=== PATIENT | male | born 1960 | race Caucasian/White ===

== ENCOUNTER 2020-03-14 20:04 | Outpatient (REF) | payer MEDICARE, SELFPAY ==
--- NOTE | 2020-03-14 | MR_ITS ---
EXAMINATION: MR CERVICAL SPINE WITHOUT CONTRAST CLINICAL INFORMATION: Worsening neck pain. Left-sided hyperreflexia. Nerve impingement. COMPARISON: Cervical spine MRI from 01/27/2019. TECHNIQUE: MRI of the cervical spine was obtained using routine sequences without contrast. FINDINGS: Mild degenerative stepwise retrolistheses from C2-C4 and from C5-C7. Degenerative anterolisthesis of C4 on C5. Advanced degenerative disc disease at C5-C6 and C6-C7. Moderate degenerative disc disease at all additional cervical levels. Associated mixed Modic type discogenic endplate changes including mild Modic type I discogenic edema from C4-C7. Mild edema within the left-sided C4-C6 facets suggestive of degenerative stress reaction. No additional suspicious marrow edema. Mild degenerative loss of C5 and C6 vertebral body height. Otherwise, the vertebral body heights are largely maintained. No spinal cord signal abnormalities demonstrated in 2 planes. Limited evaluation of the soft tissues of the neck without demonstrated abnormalities. The flow voids of the major cervical vessels are maintained. Normal appearance of the cervicomedullary junction and visualized posterior fossa. SPINAL LEVELS: C2-C3: Mild disc-osteophyte complex. There is no uncovertebral joint arthropathy. There is mild bilateral facet joint arthropathy. There is no neural foraminal stenosis. There is no spinal canal stenosis. C3-C4: Moderate disc-osteophyte complex. There is mild bilateral uncovertebral joint arthropathy. There is moderate bilateral facet joint arthropathy. There is moderate right and mild left neural foraminal stenosis. There is no spinal canal stenosis. C4-C5: Moderate disc-osteophyte complex. There is moderate left and mild right uncovertebral joint arthropathy. There is severe left and mild right facet joint arthropathy. There is severe left and no right neural foraminal stenosis. There is mild spinal canal stenosis. C5-C6: Moderate disc-osteophyte complex. There is moderate to severe bilateral uncovertebral joint arthropathy. There is moderate bilateral facet joint arthropathy. There is severe right worse than left neural foraminal stenosis. There is mild spinal canal stenosis. C6-C7: Moderate disc-osteophyte complex. There is moderate bihilar uncovertebral joint arthropathy. There is moderate bilateral facet joint arthropathy. There is severe right worse than left neural foraminal stenosis. There is no spinal canal stenosis. C7-T1: Mild disc-osteophyte complex. There is no uncovertebral joint arthropathy. There is mild bilateral facet joint arthropathy. There is no neural foraminal stenosis. There is no spinal canal stenosis. MR/MR cervical spine wo con IMPRESSION: Moderate to advanced multilevel degenerative spinal arthropathy of the cervical spine as described in detail above. Most notably, there are mild spinal canal stenosis at C4-C5 and C5-C6. Moderate to severe neural foraminal stenoses from C3-C7. Overall, findings are similar to exam from 2019.
== END 2020-03-14 20:05 | disposition home or self-care (01) ==
LOC: HO.MRI 20:04
PROVIDERS: Visit Provider Internal Medicine Medical Oncology
DX: M54.12 Radiculopathy, cervical region (principal); R29.898 Other symptoms and signs involving the musculoskeletal system
CPT/HCPCS: 72141

== ENCOUNTER 2020-04-10 08:32 | Outpatient (REF) | payer MEDICARE, SELFPAY ==
[2020-04-10 13:58] LABS: MANUAL DIFF FLAG NO
[2020-04-10 14:02] LABS: Basophils Percent Auto 0.1 % (0-2); Hematocrit 36.5 % (42-52); Imm Gran Abs Auto 0.11 X10*3/uL (0.00-0.03); Imm Gran Pct Auto 0.8 % (0.0-0.4); Lymphocytes Percent Auto 7.3 % (20-40); Mean Corpuscular HGB Conc 32.9 g/dl (31.0-36.0); Mean Corpuscular Hemoglobin 30.2 pg (27.0-33.0); Mean Corpuscular Volume 91.7 fL (80-98); Mean Platelet Volume 9.2 fL (9.4-12.4); Monocytes Absolute Auto 0.4 X10*3/uL (0.1-1.2); Neutrophils Absolute Auto 12.6 X10*3/uL (2.0-8.3); Neutrophils Percent Auto 88.8 % (45-73); Platelet Count 318 X10*3/uL (160-400); Red Blood Count 3.98 X10*6/uL (4.60-5.80); Red Cell Distribution Width 14.8 % (11.0-16.0); White Blood Count 14.2 X10*3/uL (4.8-10.8)
[2020-04-10 14:18] LABS: Alanine Aminotransferase 13 U/L (0-40); Albumin Level 4.5 g/dL (3.5-5.0); Alkaline Phosphatase 58 U/L (39-117); Anion Gap 16 (12-20); Aspartate Amino Transferase 19 U/L (5-37); Bilirubin Total 0.2 mg/dL (0.0-1.0); Blood Urea Nitrogen 21 mg/dL (9-16); Calcium 9.3 mg/dL (8.4-10.2); Carbon Dioxide 25 mmol/L (22-29); Chloride 100 mmol/L (96-108); Cholesterol 248 mg/dL; Estimated Glomerular Filt Rate > 60; Glucose Fasting 106 mg/dL (60-99); HDL Cholesterol 91 mg/dL; LDL Cholesterol Calculated 148 mg/dl; Potassium 5.3 mmol/l (3.3-5.1); Sodium 136 mmol/L (135-145); Total Protein 7.1 g/dL (6.5-8.0); Triglycerides 48 mg/dL
== END 2020-04-10 08:33 | disposition home or self-care (01) ==
LOC: HO.LAB 08:32
PROVIDERS: PCP Internal Medicine Medical Oncology; Visit Provider Internal Medicine Medical Oncology
DX: E78.2 Mixed hyperlipidemia (principal); J44.9 Chronic obstructive pulmonary disease, unspecified
CPT/HCPCS: 36415; 80053; 80061; 85025

== ENCOUNTER 2020-04-23 12:39 | Outpatient (RCR) | payer MEDICARE, MEDICAID, SELFPAY ==
--- NOTE | ~2020-04-23 | XR_ITS ---
EXAMINATION: XR CHEST CLINICAL INFORMATION: Nonhealing wound, image healed approval COMPARISON: None TECHNIQUE: 2 views of the chest were obtained. FINDINGS: Both lungs are hyperinflated but clear of acute process. Heart size and pulmonary vascularity is normal. There are old healed right posterior fourth, fifth and sixth rib fractures. No additional bony abnormality seen. XR/XR chest 2V IMPRESSION: Hyperinflated lungs likely emphysema. No acute cardiopulmonary process. Old right posterior healed fourth, fifth and sixth rib fractures.
--- NOTE | ~2020-04-23 | XR_ITS ---
EXAMINATION: XR CHEST CLINICAL INFORMATION: Shortness of breath COMPARISON: Previous chest x-rays most recent October 2020 TECHNIQUE: 2 views of the chest were obtained. FINDINGS: The cardiac and mediastinal contours are normal. The lungs are clear. There is no pleural effusion or pneumothorax. There are old right rib fractures. Bony structures are otherwise unremarkable. XR/XR chest 2V IMPRESSION: No evidence for acute disease in the chest.
[2020-11-11 13:58] LABS: MANUAL DIFF FLAG NO
[2020-11-11 14:07] LABS: Basophils Percent Auto 0.4 % (0-2); Eosinophils Absolute Auto 0.2 X10*3/uL (0.0-0.4); Eosinophils Percent Auto 1.6 % (0-4); Hematocrit 33.2 % (42-52); Hemoglobin 10.7 g/dl (14.0-18.0); Imm Gran Abs Auto 0.04 X10*3/uL (0.00-0.03); Imm Gran Pct Auto 0.4 % (0.0-0.4); Lymphocytes Absolute Auto 3.3 X10*3/uL (1.2-4.9); Lymphocytes Percent Auto 33.1 % (20-40); Mean Corpuscular HGB Conc 32.2 g/dl (31.0-36.0); Mean Corpuscular Hemoglobin 28.5 pg (27.0-33.0); Mean Corpuscular Volume 88.3 fL (80-98); Mean Platelet Volume 8.9 fL (9.4-12.4); Monocytes Absolute Auto 0.6 X10*3/uL (0.1-1.2); Monocytes Percent Auto 5.7 % (2-11); Neutrophils Absolute Auto 5.8 X10*3/uL (2.0-8.3); Neutrophils Percent Auto 58.8 % (45-73); Platelet Count 314 X10*3/uL (160-400); Red Blood Count 3.76 X10*6/uL (4.60-5.80); Red Cell Distribution Width 13.8 % (11.0-16.0); White Blood Count 9.8 X10*3/uL (4.8-10.8)
[2020-11-11 15:41] LABS: Alanine Aminotransferase 9 U/L (0-40); Albumin Level 4.5 g/dL (3.5-5.0); Alkaline Phosphatase 68 U/L (39-117); Anion Gap 12 (12-20); Aspartate Amino Transferase 20 U/L (5-37); Bilirubin Total 0.3 mg/dL (0.0-1.0); Blood Urea Nitrogen 12 mg/dL (9-16); Calcium 9.6 mg/dL (8.4-10.2); Carbon Dioxide 27 mmol/L (22-29); Chloride 102 mmol/L (96-108); Cholesterol 233 mg/dL; Estimated Glomerular Filt Rate > 60; Glucose Fasting 97 mg/dL (60-99); HDL Cholesterol 44 mg/dL; LDL Cholesterol Calculated 167 mg/dl; Potassium 4.7 mmol/L (3.3-5.1); Sodium 136 mmol/L (135-145); Total Protein 6.9 g/dL (6.5-8.0); Triglycerides 114 mg/dL
[2020-11-11 16:03] LABS: Prostate Specific Antigen 1.48 ng/mL (<0.05-4.0)
[2020-11-14 12:12] LABS: MANUAL DIFF FLAG NO
[2020-11-14 12:20] LABS: Basophils Absolute Auto 0.1 X10*3/uL (0.0-0.2); Basophils Percent Auto 0.6 % (0-2); Eosinophils Absolute Auto 0.3 X10*3/uL (0.0-0.4); Eosinophils Percent Auto 3.1 % (0-4); Hematocrit 33.2 % (42-52); Hemoglobin 10.8 g/dl (14.0-18.0); Imm Gran Abs Auto 0.08 X10*3/uL (0.00-0.03); Imm Gran Pct Auto 0.8 % (0.0-0.4); Lymphocytes Absolute Auto 3.3 X10*3/uL (1.2-4.9); Lymphocytes Percent Auto 34.8 % (20-40); Mean Corpuscular HGB Conc 32.5 g/dl (31.0-36.0); Mean Corpuscular Hemoglobin 28.7 pg (27.0-33.0); Mean Corpuscular Volume 88.3 fL (80-98); Monocytes Absolute Auto 0.7 X10*3/uL (0.1-1.2); Monocytes Percent Auto 7.3 % (2-11); Neutrophils Absolute Auto 5.1 X10*3/uL (2.0-8.3); Neutrophils Percent Auto 53.4 % (45-73); Platelet Count 326 X10*3/uL (160-400); Red Blood Count 3.76 X10*6/uL (4.60-5.80); White Blood Count 9.5 X10*3/uL (4.8-10.8)
[2020-11-14 12:26] LABS: Anion Gap 11 (12-20); Blood Urea Nitrogen 12 mg/dL (9-16); C Reactive Protein 0.04 mg/dL (< or = 0.50); Calcium 9.8 mg/dL (8.4-10.2); Carbon Dioxide 28 mmol/L (22-29); Chloride 105 mmol/L (96-108); Estimated Glomerular Filt Rate > 60; Glucose Fasting 100 mg/dL (60-99); Sodium 139 mmol/L (135-145)
[2020-11-14 12:28] LABS: Estimated Average Glucose 114 mg/dL; Hemoglobin A1c % 5.6 %
[2020-11-14 13:25] LABS: Erythrocyte Sedimentation Rate 11 MM/HR (0-15)
== END 2021-01-28 10:00 | disposition home or self-care (01) ==
LOC: HO.WCC 12:39
PROVIDERS: Absent Provider Surgery; PCP Internal Medicine Medical Oncology; Referring Provider Internal Medicine Medical Oncology; Visit Provider Physician Assistant
DX: L97.814 Non-pressure chronic ulcer of other part of right lower leg with necrosis of bone; T81.31XA Disruption of external operation (surgical) wound, not elsewhere classified, initial encounter; M86.361 Chronic multifocal osteomyelitis, right tibia and fibula; T70.0XXA Otitic barotrauma, initial encounter; M21.371 Foot drop, right foot; G62.9 Polyneuropathy, unspecified; F12.90 Cannabis use, unspecified, uncomplicated; J44.9 Chronic obstructive pulmonary disease, unspecified; Z87.891 Personal history of nicotine dependence; Z79.2 Long term (current) use of antibiotics
CPT/HCPCS: 11042; 11043; 11044; 11106; 29580; 29581; 36415; 71046; 80048; 80053; 80061; 83036; 84134; 84153; 85025; 85652; 86140; 87071; 87077; 87147; 87186; 87205; 88304; 88305; 88311; 97597; 99183; 99211; 99212; 99213

== ENCOUNTER 2020-05-01 09:46 | Outpatient (REF) | payer MEDICARE, SELFPAY ==
--- NOTE | 2020-05-01 09:52 | XR_ITS ---
EXAMINATION: XR TIBIA AND FIBULA, RIGHT CLINICAL INFORMATION: Right anterior tibial open wound. COMPARISON: MRI lower extremity 10/21/2017. TECHNIQUE: AP and lateral views of the right tibia and fibula were obtained. FINDINGS: There is no visible acute fracture or dislocation. There is extensive soft tissue calcification in the mid tibia and fibula including increased sclerosis of the mid tibial region, likely myositis ossificans secondary to previous bone and soft tissue injury. 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 No acute fracture or dislocation seen at this time.
== END 2020-05-01 09:47 | disposition home or self-care (01) ==
LOC: HO.XRAY 09:46
PROVIDERS: PCP Internal Medicine Medical Oncology; Visit Provider Physician Assistant
DX: S81.801A Unspecified open wound, right lower leg, initial encounter (principal)
CPT/HCPCS: 73590

== ENCOUNTER 2020-05-31 08:26 | Outpatient (REF) | payer MEDICARE, SELFPAY ==
--- NOTE | ~2020-05-31 | MR_ITS ---
EXAMINATION: MRI OF THE RIGHT LOWER EXTREMITY WITHOUT AND WITH CONTRAST. CLINICAL INFORMATION: Nonhealing wound. Evaluate for osteomyelitis. Patient reports nonhealing wound history of surgery over 1 year ago. Surgery of calcified area in new open and leaking wound. Right leg numbness. COMPARISON: Multiple prior examinations including x-ray the right tibia fibula 05/01/2020 and MRI of the right lower extremity September 2017. X-ray of the right foot November 2012. TECHNIQUE: MRI of the right lower extremity was performed before and after contrast. 7.5 mL of Gadavist contrast given intravenously for the contrast portion of the exam. FINDINGS: As on the prior MRI examination in 2018, there is a localized area of abnormal signal centered within the anterior compartment musculature of the lower leg, beginning approximately 11.5 cm distal to the joint line. The signal intensity pattern of this focus has changed slightly since the prior examination. It is more dark on T1 and now bright on the T2-weighted sequences. There is mild peripheral enhancement of this focus. There also appears to be a thickened area of predominantly low signal on both the T1 and T2-weighted sequences surrounding this focus, similar but more prominent and with a more thickened appearance compared to prior. This likely corresponds to the calcification/ossification on radiographs. There is a similar somewhat globular area of low signal surrounding the posteriolateral aspect of the distal fibula which also likely corresponds to the area of calcification/ossification on radiographs. This focus/collection measures up to 1 cm transverse and 2 cm AP and extends over length of approximately 11.5 cm. This is smaller in size than previous when this measured 4 x 4 x 13.2 cm. Along the anterior compartment, there appears to be a small 3 mm defect in the overlying fascia resulting in communication of abnormal signal and some fluid into the subcutaneous soft tissues. There is dark T1 and bright T2 with heterogeneous enhancement in the overlying subcutaneous soft tissues, compatible with a combination of fluid/edema and cellulitis. This extends the length of the lower leg. There is persistent advanced atrophy and fatty infiltration throughout the anterior and peroneal compartment muscles, probably unchanged compared to prior. Posterior compartment musculature: Mild atrophy and fatty infiltration of the muscle is much less evident than anteriorly and laterally. No fluid collection in the posterior muscles. Bone: Question mild irregularity or deformity of the distal fibula, perhaps related to old fracture but unchanged. This may simply reflect some heterotopic ossification attached to the cortex. Neurovascular structures: Unremarkable. MR/MR lower leg RT wo/w con IMPRESSION: No evidence of osteomyelitis. Decreased size in what appears to be a chronic complex fluid collection centered within the anterior compartment musculature of the right lower leg. Peripheral areas of low signal surrounding this apparent collection as well as along the distal fibula correspond to the areas of calcification/ossification on the radiographs. As suggested previously, this could reflect an area of chronic myonecrosis or possibly chronic hematoma,. However, complicating abscess is also a possibility given the peripheral enhancement and apparent new extension of fluid and signal abnormality into the subcutaneous soft tissues anterolaterally which is not identified on the prior examination. There is stable-appearing atrophy and fatty infiltration of the anterior and peroneal compartment musculature. The surrounding calcification/ossification as well as the similar finding along the distal fibula could also reflect concomitant myositis ossificans/dystrophic calcification.
== END 2020-05-31 08:27 | disposition home or self-care (01) ==
LOC: HO.MRI 08:26
PROVIDERS: Visit Provider Physician Assistant
DX: M65.061 Abscess of tendon sheath, right lower leg (principal)
CPT/HCPCS: 73720; A9585

== ENCOUNTER → 2020-06-17 11:25 | Outpatient (BNVA) | payer MEDICARE, SELFPAY | PROVIDERS: PCP Internal Medicine Medical Oncology; Visit Provider Physician Assistant | DX: M60.861 Other myositis, right lower leg (principal) | CPT/HCPCS: 99202 ==

== ENCOUNTER 2021-01-02 10:21 | Outpatient (REF) | payer MEDICARE, MEDICAID, SELFPAY ==
[2021-01-02 12:21] LABS: MANUAL DIFF FLAG NO
[2021-01-02 12:24] LABS: Basophils Percent Auto 0.2 % (0-2); Eosinophils Absolute Auto 0.1 X10*3/uL (0.0-0.4); Eosinophils Percent Auto 0.7 % (0-4); Hematocrit 33.9 % (42-52); Hemoglobin 11.3 g/dl (14.0-18.0); Imm Gran Abs Auto 0.07 X10*3/uL (0.00-0.03); Imm Gran Pct Auto 0.6 % (0.0-0.4); Lymphocytes Absolute Auto 1.6 X10*3/uL (1.2-4.9); Lymphocytes Percent Auto 14.4 % (20-40); Mean Corpuscular HGB Conc 33.3 g/dl (31.0-36.0); Mean Corpuscular Hemoglobin 29.7 pg (27.0-33.0); Mean Corpuscular Volume 89.2 fL (80-98); Mean Platelet Volume 8.8 fL (9.4-12.4); Monocytes Absolute Auto 0.4 X10*3/uL (0.1-1.2); Monocytes Percent Auto 3.2 % (2-11); Neutrophils Absolute Auto 9.2 X10*3/uL (2.0-8.3); Neutrophils Percent Auto 80.9 % (45-73); Platelet Count 312 X10*3/uL (160-400); Red Cell Distribution Width 15.6 % (11.0-16.0); White Blood Count 11.4 X10*3/uL (4.8-10.8)
[2021-01-02 13:10] LABS: Erythrocyte Sedimentation Rate 8 MM/HR (0-15)
[2021-01-02 13:27] LABS: Alanine Aminotransferase 18 U/L (0-40); Albumin Level 4.6 g/dL (3.5-5.0); Alkaline Phosphatase 44 U/L (39-117); Anion Gap 13 (12-20); Aspartate Amino Transferase 27 U/L (5-37); Bilirubin Total 0.4 mg/dL (0.0-1.0); Blood Urea Nitrogen 14 mg/dL (9-16); C Reactive Protein 0.08 mg/dL (< or = 0.50); Calcium 9.7 mg/dL (8.4-10.2); Carbon Dioxide 24 mmol/L (22-29); Chloride 106 mmol/L (96-108); Estimated Glomerular Filt Rate > 60; Glucose Random 106 mg/dL (60-115); Potassium 4.2 mmol/L (3.3-5.1); Sodium 139 mmol/L (135-145); Total Protein 6.7 g/dL (6.5-8.0)
[2021-01-02 13:30] LABS: Ferritin 27 ng/mL (20-250)
== END 2021-01-02 10:22 | disposition home or self-care (01) ==
LOC: HO.LAB 10:21
PROVIDERS: PCP Internal Medicine Medical Oncology; Visit Provider Physician Assistant
DX: R10.11 Right upper quadrant pain (principal); R11.0 Nausea; D64.9 Anemia, unspecified; R19.8 Other specified symptoms and signs involving the digestive system and abdomen; R19.7 Diarrhea, unspecified; Z12.11 Encounter for screening for malignant neoplasm of colon
CPT/HCPCS: 36415; 80053; 82378; 82728; 85025; 85652; 86140; 99202

== ENCOUNTER 2021-02-20 11:18 | Day surgery (SDC) | payer MEDICARE, MEDICAID, SELFPAY ==
[2021-02-14 10:15] VITALS: BMI 22.4
--- NOTE | 2021-02-19 12:37 | P.CONAN_ITS ---
Documented by User: Sugar Chen NP 02/19/21 12:38 HPI - Anesthesia Eval Consult details Narrative: 60yo M for Upper Endoscopy and Colonoscopy PMFSH Active Problems Active Problems: All Active Problems (Updated 02/14/21 @ 10:14 by Megan Gabriel RN) Other myositis, right lower leg (Acute) Encounter for screening colonoscopy (Acute) Nausea (Acute) Rectal pressure (Acute) Anemia (Acute) Past Medical History Medical History COPD (chronic obstructive pulmonary disease) COVID-19 vaccine series completed Elevated cholesterol Fatty liver Herniated cervical disc History of hyperbaric oxygen therapy Family History Family History (Updated 01/02/21 @ 10:31 by KEYONA White) Mother Lung cancer Brother Lung cancer Brain cancer Brother Lung cancer Surgical History Surgical History History of surgery on extremity Hx of colonoscopy Social History Social History (Updated 02/14/21 @ 10:19 by Megan Gabriel RN) Are you a primary critical care registered nurse to a significant other at home: No Do you presently have visiting nurse or other home services: No Patient Tobacco Use Status: Former Tobacco user Quit Date: 2014 Tobacco use type: Cigarette Years Smoked: 40 Use of substances other than those prescribed or required for medical reasons: Yes Substance Use Type Other:: advised to hold 3-5 days pre-op Substance Use Frequency: Daily Have you been hit, kicked, punched, or otherwise hurt by someone within the past year? If so, by whom?: No Are you DNR?: No Advance Directives: No (no official HCP form-states would be his ) Advance Directives Information Provided: Yes (informational brochure & HCP form mailed per patient request) Advance Directives on File: No Recently lost weight without trying: No Eating poorly because of decreased appetite: No Nutrition Risks: No Nutritional Risk Poor oral hygiene: No (upper & lower full denture) Meds Allergies Allergy/AdvReac Type Severity Reaction Status Date / Time bee pollen [bee stings] Allergy Severe Anaphylaxis Verified 02/14/21 10:14 scallops Allergy Severe ANAPHYLAXIS Verified 02/14/21 10:14 hydrocodone [From VICODIN] Allergy Intermediate ITCHING,THROAT Verified 02/14/21 10:14 [facility] Home Medications Medication Instructions Recorded Confirmed Last Taken Type atorvastatin 10 mg tablet 10 mg PO DAILY 01/02/21 02/14/21 Unknown History epinephrine 0.15 mg/0.3 mL 0.15 mg IM ONCE PRN 01/02/21 02/14/21 Unknown History injection,auto-injector sulfamethoxazole 800 1 tab PO TID 01/02/21 Unknown History mg-trimethoprim 160 mg tablet trazodone 150 mg tablet 150 mg PO BEDTIME 01/02/21 02/14/21 Unknown History Exam Exam Date and Time: February 19, 2021 1237 Height,Weight and Vital Signs: Height 5 ft 9 in Weight 68.946 kg Pertinent Lab Results Pertinent Lab Results: Laboratory Tests 01/02/21 01/02/21 11:46 11:46 WBC 11.4 H Hgb 11.3 L Hct 33.9 L Plt Count 312 Sodium 139 Potassium 4.2 Chloride 106 Carbon Dioxide 24 BUN 14 Creatinine 0.99 Assessment and Plan Assessment Anesthesia Assessment: Chart Reviewed Documented by User: Gavin Foster MD 02/20/21 13:30 [facility] Past Medical History Medical History COPD (chronic obstructive pulmonary disease) COVID-19 vaccine series completed Elevated cholesterol Fatty liver Herniated cervical disc History of hyperbaric oxygen therapy Family History Family History (Updated 01/02/21 @ 10:31 by KEYONA White) Mother Lung cancer Brother Lung cancer Brain cancer Brother Lung cancer Family history of problems with anesthesia: No Surgical History Surgical History History of surgery on extremity Hx of colonoscopy History of Problems with Anesthesia: No Social History Social History (Updated 02/14/21 @ 10:19 by Megan Gabriel RN) Are you a primary critical care registered nurse to a significant other at home: No Do you presently have visiting nurse or other home services: No Patient Tobacco Use Status: Former Tobacco user Quit Date: 2014 Tobacco use type: Cigarette Years Smoked: 40 Use of substances other than those prescribed or required for medical reasons: Yes Substance Use Type Other:: advised to hold 3-5 days pre-op Substance Use Frequency: Daily Have you been hit, kicked, punched, or otherwise hurt by someone within the past year? If so, by whom?: No Are you DNR?: No Advance Directives: No (no official HCP form-states would be his ) Advance Directives Information Provided: Yes (informational brochure & HCP form mailed per patient request) Advance Directives on File: No Recently lost weight without trying: No Eating poorly because of decreased appetite: No Nutrition Risks: No Nutritional Risk Poor oral hygiene: No (upper & lower full denture) Meds Allergies Allergy/AdvReac Type Severity Reaction Status Date / Time bee pollen [bee stings] Allergy Severe Anaphylaxis Verified 02/14/21 10:14 scallops Allergy Severe ANAPHYLAXIS Verified 02/14/21 10:14 hydrocodone [From VICODIN] Allergy Intermediate ITCHING,THROAT Verified 02/14/21 10:14 [facility] Home Medications Medication Instructions Recorded Confirmed Last Taken Type atorvastatin 10 mg tablet 10 mg PO DAILY 01/02/21 02/14/21 Unknown History epinephrine 0.15 mg/0.3 mL 0.15 mg IM ONCE PRN 01/02/21 02/14/21 Unknown History injection,auto-injector sulfamethoxazole 800 1 tab PO TID 01/02/21 Unknown History mg-trimethoprim 160 mg tablet trazodone 150 mg tablet 150 mg PO BEDTIME 01/02/21 02/14/21 Unknown History Exam Airway Mallampati Class: II TM Dist: >3cm Neck ROM: Full Assessment and Plan Assessment Anesthesia Assessment: Anesthesia Plan Discussed Final Anesthetic Review Family History of Problems with Anesthesia: No History of Problems with Anesthesia: No NPO: Yes ASA Class: II Final Preanesthetic Review: No Changes in Pt Med Stat, Meds/Allgs Chart Reviewed, Consent Obtained/Reviewed and Anes Risks/Benef Reviewed Patient Risk: Low Procedure Risk: Low Anesthetic Plan Anesthetic Plan: MAC: Disposition: Standard PACU
--- NOTE | 2021-02-20 12:07 | MHC.SHP ---
Pre-Procedural Eval Section A Date of Service: 02/20/21 Section B Chief Complaint: screening,nausea, Relevant Family History (Specify if Yes): No Relevant Social History: None Present Medications: see Short Stay Collaborative assessment (COPD (chronic obstructive pulmonary disease) COVID-19 vaccine series completed Elevated cholesterol Fatty liver Herniated cervical disc History of hyperbaric oxygen therapy) History of Previous Operations: Relevant previous surgery/procedure and date(s) Allergies: Allergies Allergy/AdvReac Type Severity Reaction Status Date / Time bee pollen [bee stings] Allergy Severe Anaphylaxis Verified 02/14/21 10:14 scallops Allergy Severe ANAPHYLAXIS Verified 02/14/21 10:14 hydrocodone [From VICODIN] Allergy Intermediate ITCHING,THROAT Verified 02/14/21 10:14 [facility] Review of Systems Sugical H&P ROS: Negative: Constitution, Cardiovascular, Respiratory, Neurological, Psychiatric, Hem-Onc, Allergic/Immunologic, Gastrointestinal, Genitourinary, Musculoskeletal, Integumentary, Endocrine and Eyes/Ears/Nose/Throat Exam Surgical H&P Exam: Normal: HEENT, Normal: Heart, Normal: Lungs, Normal: Extremities, Normal: Abdomen, Normal: Skin and Normal: Neurological Plan Diagnosis/Plan: Unchanged I have reviewed the history and physical and performed a pertinent physical examination on my patient. No changes have occurred unless specified.
[2021-02-20 12:43] VITALS: BP 131/71; PULSE 60; RESP 16; TEMP 36.6; O2SAT 99
[2021-02-20] MEDS: Lactated Ringers 1,000 ML 100 ML IVCONT (12:48)
[2021-02-20] MEDS: Sodium Phosphate,Mono-Dibasic 133 ML ENEMA PR (12:49)
--- NOTE | 2021-02-20 13:51 | PM.OP ---
Brief Operative Note Date of Service: 02/20/21 Pre-op diagnosis: nausea, screening colonoscopy, reflux Post-op diagnosis: same Procedure: see op note Surgeon: Meir Leos MD Anesthesia: MAC Was an Assault Boat Coxswain used for this Procedure?: No Estimated blood loss (mL): 0 Condition: stable Disposition: PACU
--- NOTE | 2021-02-20 13:51 | W.PM.OPN ---
Operative Note Operative Note Date of Service: 02/20/21 Narrative: Operative Information Procedure Description: EGD, Colonoscopy FLEXIBLE TRANSORAL UPPER GASTROINTESTINAL ENDOSCOPY AND COLONOSCOPY PROCEDURE NOTE UPPER ENDOSCOPY Consent: Indications for the procedure and potential complications of bleeding, perforation, reaction to medications and missed diagnosis were discussed with the patient and informed consent was obtained. Instrument: Olympus GIF H 190 J mid size upper endoscope Monitoring: Vital signs and clinical assessment, continuous EKG monitoring, Pulse oximetry, Carbon Dioxide monitoring and blood pressure monitoring were done throughout the procedure. Procedure: The patient was placed in the left lateral decubitis position and pre-procedure medications were administered and a bite block was placed. The endoscope was inserted into the mouth and advanced under direct vision to the third part of duodenum. A careful inspection was made as the upper endoscope was withdrawn including a retroflexed examination of the proximal stomach; Findings and interventions are described below. Findings: Larynx:normal Esophagus: GE junction at 41 cm, diaphragm hiatus at 41 cm, irregular Z line, bx taken to r/o barretts, also random esophagus bx taken. Mild esophagitis noted. Stomach: Scattered erosions at antrum noted. Biopsies were obtained. Grade 2 flap valve on retroflexed examination of the cardia. Duodenum: Normal bulb and descending duodenum, bx taken Intervention: Biopsies as noted above COLONOSCOPY Instrument: Olympus variable stiffness adult scope 190L Colonoscopy Monitoring: Vital signs and clinical assessment, continuous EKG monitoring, Pulse oximetry, Carbon Dioxide monitoring and blood pressure monitoring were done throughout the procedure. Colon withdrawal time was 8 minutes. Procedure: The patient was placed in the left lateral decubitis position and pre-procedure medications were administered. After a digital rectal examination of the ano-rectum, the video colonoscope was inserted into the rectum and advanced through the colon to the cecum/TI. The colonoscope was slowly withdrawn in a retrograde panoramic fashion and the colon mucosa was carefully examined including a retroflexed view of the rectum. Findings and interventions are described below. Procedure Difficulty: easy Findings: Terminal Ileum- mild erythema noted, bx taken random colon bx taken Cecum:normal Ascending Colon: normal Transverse Colon -normal Descending Colon:normal Sigmoid Colon: normal Rectum: Retroflexion with small internal hemorrhoids, grade I Anorectum - normal Colon preparation: [place] Bowel Preparation Scale Right colon; 3 Transverse colon: 3 Left colon; 2 (0 = Unprepared colon segment with mucosa not seen due to solid stool that cannot be cleared. 1 = Portion of mucosa of the colon segment seen, but other areas of the colon segment not well seen due to staining, residual stool and/or opaque liquid. 2 = Minor amount of residual staining, small fragments of stool and/or opaque liquid, but mucosa of colon segment seen well. 3 = Entire mucosa of colon segment seen well with no residual staining, small fragments of stool or opaque liquid) Impression and Post Procedure Diagnosis: Endoscopy Findings: erosive gastritis esophagitis Colonoscopy Findings: internal hemorrhoids mild ileitis Plan: Await Pathology results Repeat Colonoscopy in 10 years or earlier if clinically indicated High fiber diet leaflet avoid straining at stool, epsom salts and sitz bath, anusol supps or cream if not taking PPI then may benefit from trial if h pylori pos then treat Above findings were reviewed with the patient and relevant handouts were provided if indicated.
[2021-02-20 14:20] VITALS: BP 92/63; PULSE 73; RESP 16; TEMP 37.2; O2SAT 100
[2021-02-20] MEDS: Acetaminophen 325 MG TABLET 975 MG PO (14:41)
== END 2021-02-20 15:21 | disposition home or self-care (01) ==
PROVIDERS: PCP Internal Medicine Medical Oncology; Visit Provider Internal Medicine Gastroenterology
PROC: (CPT 45380; principal; 2021-02-20 12:40)
DX: Z12.11 Encounter for screening for malignant neoplasm of colon (principal); K64.0 First degree hemorrhoids; K52.89 Other specified noninfective gastroenteritis and colitis; K21.9 Gastro-esophageal reflux disease without esophagitis; K20.90 Esophagitis, unspecified without bleeding; K29.50 Unspecified chronic gastritis without bleeding; J44.9 Chronic obstructive pulmonary disease, unspecified; Z79.899 Other long term (current) drug therapy; Z88.8 Allergy status to other drugs, medicaments and biological substances; Z87.891 Personal history of nicotine dependence
CPT/HCPCS: 45380; 43239; 88305; 88342

== ENCOUNTER 2021-03-05 13:45 | Outpatient (REF) | payer MEDICARE, MEDICAID, SELFPAY ==
[2021-03-06 15:22] LABS: H Pylori Breath Test Negative (Negative)
== END 2021-03-05 13:46 | disposition home or self-care (01) ==
LOC: HO.LAB 13:45
PROVIDERS: PCP Internal Medicine Medical Oncology; Visit Provider Internal Medicine Gastroenterology
DX: R11.0 Nausea (principal); Z11.0 Encounter for screening for intestinal infectious diseases; Z87.891 Personal history of nicotine dependence
CPT/HCPCS: 36415; 83013

== ENCOUNTER 2021-06-03 11:55 | Outpatient (REF) | payer MEDICARE, MEDICAID, SELFPAY ==
[2021-06-03 12:25] LABS: MANUAL DIFF FLAG NO
[2021-06-03 12:41] LABS: Basophils Absolute Auto 0.1 X10*3/uL (0.0-0.2); Basophils Percent Auto 0.8 % (0-2); Eosinophils Absolute Auto 0.3 X10*3/uL (0.0-0.4); Eosinophils Percent Auto 3.1 % (0-4); Hemoglobin 11.8 g/dl (14.0-18.0); Imm Gran Abs Auto 0.03 X10*3/uL (0.00-0.03); Imm Gran Pct Auto 0.3 % (0.0-0.4); Lymphocytes Absolute Auto 3.4 X10*3/uL (1.2-4.9); Lymphocytes Percent Auto 33.3 % (20-40); Mean Corpuscular HGB Conc 32.8 g/dl (31.0-36.0); Mean Corpuscular Hemoglobin 29.4 pg (27.0-33.0); Mean Corpuscular Volume 89.8 fL (80.0-98.0); Mean Platelet Volume 8.9 fL (9.4-12.4); Monocytes Absolute Auto 0.8 X10*3/uL (0.1-1.2); Monocytes Percent Auto 7.7 % (2-11); Neutrophils Absolute Auto 5.7 x10*3/uL (2.0-8.3); Neutrophils Percent Auto 54.8 % (45-73); Platelet Count 312 X10*3/uL (160-400); Red Blood Count 4.01 X10*6/uL (4.60-5.80); Red Cell Distribution Width 14.3 % (11.0-16.0); White Blood Count 10.3 X10*3/uL (4.8-10.8)
[2021-06-03 13:09] LABS: Alanine Aminotransferase 14 U/L (0-40); Albumin Level 4.5 g/dL (3.5-5.0); Alkaline Phosphatase 51 U/L (39-117); Anion Gap 10 (12-20); Aspartate Amino Transferase 18 U/L (5-37); Bilirubin Total 0.5 mg/dL (0.0-1.0); Blood Urea Nitrogen 23 mg/dL (9-16); Calcium 9.9 mg/dL (8.4-10.2); Carbon Dioxide 29 mmol/L (22-29); Chloride 104 mmol/L (96-108); Cholesterol 239 mg/dL; Estimated Glomerular Filt Rate > 60; Glucose Fasting 90 mg/dL (60-99); HDL Cholesterol 57 mg/dL; LDL Cholesterol Calculated 164 mg/dl; Potassium 4.7 mmol/L (3.3-5.1); Sodium 138 mmol/L (135-145); Total Protein 6.9 g/dL (6.5-8.0); Triglycerides 92 mg/dL
[2021-06-03 14:30] LABS: Prostate Specific Antigen 1.18 ng/mL (<0.05-4.0)
== END 2021-06-03 11:56 | disposition home or self-care (01) ==
LOC: HO.LAB 11:55
PROVIDERS: PCP Internal Medicine Medical Oncology; Visit Provider Internal Medicine Medical Oncology
DX: Z12.5 Encounter for screening for malignant neoplasm of prostate (principal); E78.2 Mixed hyperlipidemia; N40.0 Benign prostatic hyperplasia without lower urinary tract symptoms; D64.9 Anemia, unspecified
CPT/HCPCS: 36415; 80053; 80061; 84153; 85025

== ENCOUNTER 2021-08-18 13:26 | Outpatient (REF) | payer MEDICARE, MEDICAID, SELFPAY ==
--- NOTE | ~2021-08-18 | XR_ITS ---
EXAMINATION: XR PELVIS XR HIP, RIGHT CLINICAL INFORMATION: Right hip pain. COMPARISON: None TECHNIQUE: One view of the pelvis and 2 views of the right hip. FINDINGS: There is evidence of an old healed fracture of the right proximal femoral shaft. There is cortical thickening and increased sclerosis. Possible old chronic osteomyelitis should be considered. No acute fracture or dislocation is seen. There are mild degenerative changes of the right hip joint with small superolateral acetabular osteophyte. Bones of the pelvis are normal. Soft tissues are normal. XR/XR pelvis 1-2V IMPRESSION: Mild degenerative changes of the right hip joint. Old healed right femoral shaft fracture. Increased sclerosis and cortical thickening. Possible chronic osteomyelitis should be considered. Clinical correlation recommended. This could be better evaluated with right femur x-ray..
--- NOTE | ~2021-08-18 | XR_ITS ---
EXAMINATION: XR PELVIS XR HIP, RIGHT CLINICAL INFORMATION: Right hip pain. COMPARISON: None TECHNIQUE: One view of the pelvis and 2 views of the right hip. FINDINGS: There is evidence of an old healed fracture of the right proximal femoral shaft. There is cortical thickening and increased sclerosis. Possible old chronic osteomyelitis should be considered. No acute fracture or dislocation is seen. There are mild degenerative changes of the right hip joint with small superolateral acetabular osteophyte. Bones of the pelvis are normal. Soft tissues are normal. XR/XR hip RT min 2V IMPRESSION: Mild degenerative changes of the right hip joint. Old healed right femoral shaft fracture. Increased sclerosis and cortical thickening. Possible chronic osteomyelitis should be considered. Clinical correlation recommended. This could be better evaluated with right femur x-ray..
== END 2021-08-18 13:27 | disposition home or self-care (01) ==
LOC: HO.XRAY 13:26
PROVIDERS: PCP Internal Medicine Medical Oncology; Visit Provider Internal Medicine Medical Oncology
DX: M25.551 Pain in right hip (principal); M25.751 Osteophyte, right hip
CPT/HCPCS: 72170; 73502

== ENCOUNTER → 2021-09-08 14:04 | Outpatient (BNVA) | payer MEDICARE, MEDICAID, SELFPAY | PROVIDERS: PCP Internal Medicine Medical Oncology; Visit Provider Physician Assistant | DX: M53.3 Sacrococcygeal disorders, not elsewhere classified (principal) | CPT/HCPCS: 99212 ==

== ENCOUNTER → 2021-09-26 14:19 | Outpatient (BNVA) | payer MEDICARE, MEDICAID, SELFPAY | PROVIDERS: PCP Internal Medicine Medical Oncology; Visit Provider Nurse Practitioner Family | DX: M53.3 Sacrococcygeal disorders, not elsewhere classified (principal) | CPT/HCPCS: 99202 ==

== ENCOUNTER 2021-12-31 06:15 | Outpatient (REF) | payer MEDICARE, MEDICAID, SELFPAY ==
--- NOTE | ~2021-12-31 | FL_ITS ---
EXAMINATION: XR FLUOROSCOPY WITH IMAGES CLINICAL INFORMATION: M53.3 - Sacrococcygeal disorders, not elsewhere classified COMPARISON: Pelvic radiographs 08/18/2021 TECHNIQUE: Fluoroscopy performed by Dr. Gavin Foster. Fluoroscopy time: 0.1 minutes. Cumulative Dose: 2.54 mGy. DAP: 0.233 Gy-cm2. Images: 2. FINDINGS: Spinal needle overlies mid right SI joint. Needle tip is at level of the joint on the lateral view. No joint narrowing or subchondral sclerosis or visible erosive changes. FL/FL guidance in treatment room IMPRESSION: Fluoroscopy for pain management procedure.
== END 2021-12-31 06:16 | disposition home or self-care (01) ==
LOC: HO.RADIR 06:15
PROVIDERS: Visit Provider Internal Medicine
DX: M53.3 Sacrococcygeal disorders, not elsewhere classified (principal); Z92.29 Personal history of other drug therapy
CPT/HCPCS: 27096; J1040; J2795

== ENCOUNTER → 2022-01-02 08:21 | Outpatient (BNVA) | payer MEDICARE, MEDICAID, SELFPAY | PROVIDERS: PCP Internal Medicine Medical Oncology; Visit Provider Internal Medicine | DX: M54.50 Low back pain, unspecified (principal) | CPT/HCPCS: Q3014 ==

== ENCOUNTER 2022-03-31 13:45 | Outpatient (REF) | payer MEDICARE, MEDICAID, SELFPAY ==
[2022-03-31 13:55] LABS: MANUAL DIFF FLAG NO
[2022-03-31 15:39] LABS: Basophils Absolute Auto 0.1 X10*3/uL (0.0-0.2); Basophils Percent Auto 0.7 % (0-2); Eosinophils Absolute Auto 0.4 X10*3/uL (0.0-0.4); Eosinophils Percent Auto 4.1 % (0-4); Hematocrit 34.6 % (42.0-52.0); Hemoglobin 11.5 g/dl (14.0-18.0); Imm Gran Abs Auto 0.02 X10*3/uL (0.00-0.03); Imm Gran Pct Auto 0.2 % (0.0-0.4); Lymphocytes Absolute Auto 3.7 X10*3/uL (1.2-4.9); Lymphocytes Percent Auto 38.3 % (20-40); Mean Corpuscular HGB Conc 33.2 g/dl (31.0-36.0); Mean Corpuscular Hemoglobin 29.7 pg (27.0-33.0); Mean Corpuscular Volume 89.4 fL (80.0-98.0); Mean Platelet Volume 9.6 fL (9.4-12.4); Monocytes Absolute Auto 0.8 X10*3/uL (0.1-1.2); Monocytes Percent Auto 8.1 % (2-11); Neutrophils Absolute Auto 4.6 x10*3/uL (2.0-8.3); Neutrophils Percent Auto 48.6 % (45-73); Platelet Count 361 X10*3/uL (160-400); Red Blood Count 3.87 X10*6/uL (4.60-5.80); Red Cell Distribution Width 14.1 % (11.0-16.0); White Blood Count 9.5 X10*3/uL (4.8-10.8)
[2022-03-31 15:51] LABS: Alanine Aminotransferase 12 U/L (0-40); Albumin Level 4.7 g/dL (3.5-5.0); Alkaline Phosphatase 56 U/L (39-117); Anion Gap 13 (12-20); Aspartate Amino Transferase 19 U/L (5-37); Bilirubin Total 0.3 mg/dL (0.0-1.0); Blood Urea Nitrogen 13 mg/dL (9-16); Calcium 9.6 mg/dL (8.4-10.2); Carbon Dioxide 28 mmol/L (22-29); Chloride 105 mmol/L (96-108); Cholesterol 212 mg/dL; Estimated Glomerular Filt Rate > 60; Glucose Fasting 71 mg/dL (60-99); HDL Cholesterol 44 mg/dL; LDL Cholesterol Calculated 137 mg/dl; Potassium 4.6 mmol/L (3.3-5.1); Sodium 141 mmol/L (135-145); Triglycerides 157 mg/dL
== END 2022-03-31 13:46 | disposition home or self-care (01) ==
LOC: HO.LAB 13:45
PROVIDERS: PCP Internal Medicine Medical Oncology; Visit Provider Internal Medicine Medical Oncology
DX: E78.2 Mixed hyperlipidemia (principal)
CPT/HCPCS: 36415; 80053; 80061; 85025

== ENCOUNTER 2022-04-07 12:37 | Outpatient (RCR) | payer MEDICARE, MEDICAID, SELFPAY | END 2022-05-28 16:00 | disposition home or self-care (01) | LOC: HO.WCC 12:37 | PROVIDERS: PCP Internal Medicine Medical Oncology; Visit Provider Physician Assistant | DX: L97.816 Non-pressure chronic ulcer of other part of right lower leg with bone involvement without evidence of necrosis (principal); E44.1 Mild protein-calorie malnutrition | CPT/HCPCS: 99212; 99213 ==

== ENCOUNTER 2022-06-01 12:24 | Outpatient (REF) | payer MEDICARE, MEDICAID, SELFPAY ==
--- NOTE | 2022-06-01 13:18 | MHC.AU.MED ---
Medical Clearance for Hearing Instrumentation Date: 06/01/22 Patient Name: Aakash Coronado Date of : 1960 Primary Care Provider: Luiz Maguire MD We have seen your patient on 06/01/22 and have determined that they are a candidate for amplification (See accompanying report). Specifically, they would benefit from: Hearing aid use in both ears There is a statute that addresses Medical Evaluation Requirements prior to fitting a patient with a hearing aid. According to [place] statute 265 CMR:6.03(1), (a) General. Except as provided in 265 CMR 6.03(1)(b), a inside steward/stewardess shall not sell a hearing aid unless the prospective user has presented to the inside steward/stewardess a written statement signed by a licensed physician that states that the patient's hearing loss has been medically evaluated and the patient may be considered a candidate for a hearing aid. The medical evaluation must have taken place within the preceding six months. Please note: Due to the [place] Statute referenced above, we cannot accept a signature other than that of a licensed physician. [employer] and PA signatures cannot be accepted. I am in agreement with the above recommendation. There is no medical contraindication for hearing instrumentation. Physician Signature Date Physician Name (Printed)
--- NOTE | 2022-06-01 14:04 | MHC.AU.HA1 ---
Hearing Aid Evaluation Date of Visit: 06/01/22 Historical Information: Description of Hearing: Within normal steeply sloping to moderately-severe sensorineural hearing loss, bilaterally Current personal amplification information: Oticon OPN 3 miniRITEs fit in November 2016 - LOST Summary: Aakash was first fit with hearing aids in [address] [facility]. He reported that he was a successful hearing aid user and noticed significant benefit from them. He lost his current hearing aids about three years ago. Aakash is ready to pursue new hearing aids due to increased difficulty hearing and understanding, especially his and grandchildren. He often needs to ask for repetition and mishears parts of conversations. Aakash is agreeable to switching manufacturers to [employer] for direct bluetooth compatibility with his Dely cell phone. He also opted for rechargeable hearing aids. Hearing Aid Prescription: Based on the individual?s shared listening needs, communication environments, dexterity, desire for connectivity, and personal preferences, the following prescription for amplification has been made: Right ear: Make, Model, Color: Phonak Audeo L70-R Color: Sand Beige Battery Size: Rechargeable Remote Mortgage Underwriter/Slim Tube: 1M Type of Earmold/Dome/CShell/SlimTip: Small open dome Left ear: Left ear prescription to be same as Right Hearing Aid above: Make, Model, Color: Phonak Audeo L70-R Color: Sand Beige Battery Size: Rechargeable Remote Mortgage Underwriter/Slim Tube: 1M Type of Earmold/Dome/CShell/SlimTip: Small open dome Plan of Care: Patient wishes to purchase hearing aids as prescribed Action Taken/Action Needed: Medical Clearance to be requested from PCP/ENT. Hearing Instrument Fitting to be scheduled when materials arrive Primary Diagnosis: H90.3 Bilateral Sensorineural Hearing Loss Signature: Provider: Shi Milligan, [facility]
== END 2022-06-01 12:25 | disposition home or self-care (01) ==
LOC: HO.SH 12:24
PROVIDERS: Visit Provider Internal Medicine Medical Oncology
DX: H91.93 Unspecified hearing loss, bilateral (principal)
CPT/HCPCS: 92557; 92567; 92591

== ENCOUNTER 2022-06-12 14:44 | Outpatient (REF) | payer MEDICARE, MEDICAID, SELFPAY ==
--- NOTE | 2022-06-12 15:33 | MHC.AU.HA2 ---
Hearing Instrument Fitting- Adult- Binaural Date of Visit: 06/12/22 Hearing Instruments Dispensed: Right Ear: Zac, Model, Color, Serial Number: Anthony Hall L70-R Color: Safia Beckwith Serial #[id number] Staff Writer Repair Warranty: 08/30/2025 Staff Writer Loss and Damage Warranty: 08/30/2025 [facility] Service Plan: 06/12/2023 Battery Size: Rechargeable Diaper Machine Tender/Slim Tube: 1M Earmold/Dome/CShell/SlimTip: Small open dome Type of Wax Guard: CeruShield Disk Left Ear: Make, Model, Color, Serial Number: Anthony Hall L70-R Color: Safia Beckwith Serial #[id number] Staff Writer Repair Warranty: 08/30/2025 Staff Writer Loss and Damage Warranty: 08/30/2025 [facility] Service Plan: 06/12/2023 Battery Size: Rechargeable Diaper Machine Tender/Slim Tube: 1M Earmold/Dome/CShell/SlimTip: Small open dome Type of Wax Guard: CeruShield Disk Accessories/Assistive Technology: Wireless Internet Installer Summary of Fitting: Performed feedback manager strategic partnerships and real ear measurements. Appropriate match to target through 2kHz. SoundRecover on for better audibility of high-frequency sounds. Decreased to 80% gain level at Aakash's request. He reported that his own voice sounded mechanical. Discussed acclimatization period and importance of consistent use. Explained rechargeability including manually turning on/off and reviewed care and use including volume control use and changing domes and wax guards. Aakash did not want to pair his hearing aids to his cell phone at this time as his phone is reportedly broken. As a previous hearing aid user, Aakash did well with insertion/removal and reviewing care and use. Discussed option to add retention tail, if needed. Recommendations: A hearing instrument follow-up was scheduled. Diagnosis Code(s): Primary Diagnosis: H90.3 Bilateral Sensorineural Hearing Loss Signature: Provider: Shi Milligan, [facility]
== END 2022-06-12 14:45 | disposition home or self-care (01) ==
LOC: HO.HAP 14:44
PROVIDERS: Visit Provider Internal Medicine Medical Oncology
DX: Z46.1 Encounter for fitting and adjustment of hearing aid (principal); H90.3 Sensorineural hearing loss, bilateral
CPT/HCPCS: V5011; V5020; V5160; V5261

== ENCOUNTER 2022-08-31 07:05 | Day surgery (SDC) | payer MEDICARE, MEDICAID, SELFPAY ==
[2022-08-25 10:56] VITALS: BMI 21.3
--- NOTE | 2022-08-28 08:05 | MHC.SHP ---
Pre-Procedural Eval Section A Date of Service: 08/28/22 The patient is an INPATIENT: No Changes since office visit: No Cold of Flu in the past 2 weeks, No New Medical Problems, No Changes in Medication and No Patient answered all questions The History & Physical has been completed within 30 days and I have reviewed it.: Yes Section B Chief Complaint: Age-related nuclear cataract, right eye Allergies: Allergies Allergy/AdvReac Type Severity Reaction Status Date / Time bee pollen [bee stings] Allergy Severe Anaphylaxis Verified 08/25/22 10:46 scallops Allergy Severe ANAPHYLAXIS Verified 08/25/22 10:46 hydrocodone [From VICODIN] Allergy Intermediate ITCHING,THROAT Verified 08/25/22 10:46 SWELLS Plan Diagnosis/Plan: Unchanged I have reviewed the history and physical and performed a pertinent physical examination on my patient. No changes have occurred unless specified. Time Spent With Patient Time: Total time managing care of this patient today ____ minutes.
[2022-08-31] MEDS: Tropicamide 1 % Ophth Sol 3 ML BTL 1 DROP EYE-RIGHT ×3 (07:45→07:55)
[2022-08-31] MEDS: Cyclopentolate 1 % Ophth Sol 2 ML DRPBTL 1 DROP EYE-RIGHT ×3 (07:45→07:54)
[2022-08-31] MEDS: Ketorolac Tromethamine 0.5% Op 5 ML DROPS 1 DROP EYE-RIGHT ×3 (07:45→07:55)
[2022-08-31] MEDS: Tetracaine HCl/PF 0.5% Oph Sol 4 ML DROPS 1 DROP EYE-RIGHT (07:45)
[2022-08-31] MEDS: Phenylephrine HCL 2.5% Oph SoL 2 ML BOTTLE 1 DROP EYE-RIGHT ×3 (07:45→07:54)
[2022-08-31] MEDS: Lactated Ringers 500 ML 50 ML IV (07:46)
--- NOTE | 2022-08-31 07:47 | HO.ANESPROP2 ---
[facility] Active Problems Active Problems: All Active Problems (Updated 08/25/22 @ 10:45 by Mehnaz Ariza RN) Other myositis, right lower leg (Acute) Encounter for screening colonoscopy (Acute) Nausea (Acute) Rectal pressure (Acute) Anemia (Acute) Sacroiliac joint pain (Acute) Low back pain (Acute) Past Medical History Medical History COPD (chronic obstructive pulmonary disease) COVID-19 vaccine series completed Elevated cholesterol Fatty liver Gastritis GERD (gastroesophageal reflux disease) Herniated cervical disc History of hyperbaric oxygen therapy History of osteomyelitis Umbilical hernia Family History Family History Mother Lung cancer Brother Lung cancer Brain cancer Brother Lung cancer Family history of problems with anesthesia: No Surgical History Surgical History History of esophagogastroduodenoscopy (EGD) History of surgery on extremity Hx of colonoscopy History of Problems with Anesthesia: No Social History Social History Are you a primary housekeeper child care to a significant other at home: No Do you presently have visiting nurse or other home services: No Patient Tobacco Use Status: Former Tobacco user Quit Date: 2014 Tobacco use type: Cigarette Years Smoked: 40 Are you DNR?: No Advance Directives: No Advance Directives Information Provided: Yes Advance Directives on File: No Current occupational status: disabled Meds Allergies Allergy/AdvReac Type Severity Reaction Status Date / Time bee pollen [bee stings] Allergy Severe Anaphylaxis Verified 08/31/22 07:21 scallops Allergy Severe ANAPHYLAXIS Verified 08/31/22 07:21 hydrocodone [From VICODIN] Allergy Intermediate ITCHING,THROAT Verified 08/31/22 07:21 SWELLS Active Medications: Current Medications Albuterol Sulfate (Albuterol Sulfate (0.083%) 2.5 Mg/3 Ml Vial.Neb) 2.5 mg INHALE ONCE PRN PRN Reason: Shortness of Breath/Wheezing Lactated Ringer's (Lr) 500 mls @ 50 mls/hr IV .Q10H MARCOS Stop: 08/31/22 17:29 Last Admin: 05/08/23 07:46 Dose: 50 mls/hr Povidone Iodine (Povidone Iodine 5 % Ophth Soln 30 Ml Bottle) 1 appl EYE-RIGHT PREOP PRN PRN Reason: Pre-Op Surgical Implant Prophy Home Medications Medication Instructions Recorded Confirmed Last Taken Type atorvastatin 10 mg tablet 10 mg PO DAILY 01/02/21 08/25/22 Unknown History epinephrine 0.15 mg/0.3 mL 0.15 mg IM ONCE PRN Anaphylaxis 01/02/21 08/25/22 Unknown History injection,auto-injector trazodone 150 mg tablet 150 mg PO BEDTIME 01/02/21 08/25/22 Unknown History albuterol sulfate 90 mcg/actuation 90 mcg inhalation Q4-6H PRN 09/08/21 08/25/22 Unknown History aerosol inhaler Wheezing Exam Exam Date and Time: August 31, 2022 0747 Height,Weight and Vital Signs: Height 5 ft 9 in Weight 65.317 kg Airway Mallampati Class: II TM Dist: >3cm Neck ROM: Full Denture: Upper and Lower Loose/Missing/Broken Teeth: Yes, Upper and Lower Heart: RRR Lungs: CTA Assessment and Plan Final Anesthetic Review Family History of Problems with Anesthesia: No History of Problems with Anesthesia: No NPO: Yes ASA Class: III Final Preanesthetic Review: Meds/Allgs Chart Reviewed, Consent Obtained/Reviewed and Anes Risks/Benef Reviewed Patient Risk: Intermediate Procedure Risk: Low Anesthetic Plan Anesthetic Plan: MAC: Disposition: Standard PACU
[2022-08-31 07:51] VITALS: BP 119/83; PULSE 62; RESP 18; TEMP 36.7; O2SAT 98
--- NOTE | 2022-08-31 08:52 | HO.PNOPHT ---
Ophthalmology Procedure Procedure Date of Service: 08/31/22 Ophthalmology Viscoelastic: Farhan Marcust Dual Pack Pro Ophthalmology Lenses: TECDAMIAN [id number] (19) Procedure Notes: PREOPERATIVE DIAGNOSIS: Decreased visual acuity right eye secondary to cataract POSTOPERATIVE DIAGNOSIS: Same PROCEDURE: Right cataract extraction with intraocular lens insertion SURGEON: Aníbal Zurita M.D. ANESTHESIA: Topical/MAC ESTIMATED BLOOD LOSS: None COMPLICATIONS: None After obtaining informed consent, the patient was brought to the operating room suite and placed in the supine position. After adequate sedation per anesthesia, topical drops of Tetracaine were given to the right eye. The eye was then prepped and draped in the usual sterile fashion. The operating room microscope was then positioned over the operative eye and a lid speculum placed. A paracentesis was created. Viscoelastic was then instilled into the anterior chamber. A three plane incision was then created temporally, utilizing a 2.85 mm keratome. Capsulotomy forceps were then utilized to create a circular tear capsulotomy. Hydrodissection and hydrodelineation were carried out until adequate mobilization of the nucleus occurred. Phacoemulsification was then utilized to remove the dense central nucleus followed by removal of the cortical material utilizing the automated aspiration irrigation unit. Viscoelastic was instilled into the posterior capsular bag followed by placement of a posterior chamber intraocular lens without difficulty. The residual Viscoelastic was then removed utilizing the automated IA machine. The wound was checked and found to be watertight. The patient tolerated the procedure well and the lid speculum was removed. Intracameral injection of Vigamox 0.1 mL followed by a subtenon injection of Kenalog-40 0.2 mL were administered. The patient will be seen in the a.m.
[2022-08-31 09:27] VITALS: BP 111/46; PULSE 55; RESP 18; TEMP 36.8; O2SAT 98
== END 2022-08-31 09:31 | disposition home or self-care (01) ==
PROVIDERS: PCP Internal Medicine Medical Oncology; Visit Provider Ophthalmology
PROC: (CPT 66985; principal; 2022-08-31 08:50)
DX: H25.11 Age-related nuclear cataract, right eye (principal); H52.4 Presbyopia; J44.9 Chronic obstructive pulmonary disease, unspecified; E78.00 Pure hypercholesterolemia, unspecified; K21.9 Gastro-esophageal reflux disease without esophagitis; N40.0 Benign prostatic hyperplasia without lower urinary tract symptoms; F32.A Depression, unspecified; Z79.899 Other long term (current) drug therapy; Z88.8 Allergy status to other drugs, medicaments and biological substances; Z87.891 Personal history of nicotine dependence; F12.90 Cannabis use, unspecified, uncomplicated
CPT/HCPCS: 66984; J2250; J3010; J3301; V2632

== ENCOUNTER 2022-09-14 06:03 | Day surgery (SDC) | payer MEDICARE, MEDICAID, SELFPAY ==
[2022-08-25 11:00] VITALS: BMI 21.3
--- NOTE | 2022-09-11 08:10 | MHC.SHP ---
Pre-Procedural Eval Section A Date of Service: 09/11/22 The patient is an INPATIENT: No Changes since office visit: No Cold of Flu in the past 2 weeks, No New Medical Problems, No Changes in Medication and No Patient answered all questions The History & Physical has been completed within 30 days and I have reviewed it.: Yes Section B Chief Complaint: Age-related nuclear cataract, left eye Allergies: Allergies Allergy/AdvReac Type Severity Reaction Status Date / Time bee pollen [bee stings] Allergy Severe Anaphylaxis Verified 08/31/22 07:21 scallops Allergy Severe ANAPHYLAXIS Verified 08/31/22 07:21 hydrocodone [From VICODIN] Allergy Intermediate ITCHING,THROAT Verified 08/31/22 07:21 SWELLS Plan Diagnosis/Plan: Unchanged I have reviewed the history and physical and performed a pertinent physical examination on my patient. No changes have occurred unless specified. Time Spent With Patient Time: Total time managing care of this patient today ____ minutes.
--- NOTE | 2022-09-11 09:23 | HO.ANESPROP2 ---
Documented by User: Sugar Chen NP 09/11/22 09:23 HPI - Anesthesia Eval Consult details Narrative: 62yo M for Cataract Extraction IOL Insertion PCP cleared 1st eye 08/31/22 with Fent 100, Midaz 2 PMFSH Active Problems Active Problems: All Active Problems (Updated 08/25/22 @ 10:45 by Mehnaz Ariza, RN) Other myositis, right lower leg (Acute) Encounter for screening colonoscopy (Acute) Nausea (Acute) Rectal pressure (Acute) Anemia (Acute) Sacroiliac joint pain (Acute) Low back pain (Acute) Past Medical History Medical History COPD (chronic obstructive pulmonary disease) COVID-19 vaccine series completed Elevated cholesterol Fatty liver Gastritis GERD (gastroesophageal reflux disease) Herniated cervical disc History of hyperbaric oxygen therapy History of osteomyelitis Umbilical hernia Family History Family History Mother Lung cancer Brother Lung cancer Brain cancer Brother Lung cancer Family history of problems with anesthesia: No Surgical History Surgical History (Updated 09/04/22 @ 13:14 by Mehnaz Ariza, RN) History of esophagogastroduodenoscopy (EGD) History of right cataract extraction History of surgery on extremity Hx of colonoscopy History of Problems with Anesthesia: No Social History Social History Are you a primary customer care associate to a significant other at home: No Do you presently have visiting nurse or other home services: No Patient Tobacco Use Status: Former Tobacco user Quit Date: 2014 Tobacco use type: Cigarette Years Smoked: 40 Are you DNR?: No Advance Directives: No Advance Directives Information Provided: Yes Advance Directives on File: No Current occupational status: disabled Meds Allergies Allergy/AdvReac Type Severity Reaction Status Date / Time bee pollen [bee stings] Allergy Severe Anaphylaxis Verified 08/31/22 07:21 scallops Allergy Severe ANAPHYLAXIS Verified 08/31/22 07:21 hydrocodone [From VICODIN] Allergy Intermediate ITCHING,THROAT Verified 08/31/22 07:21 SWELLS Home Medications Medication Instructions Recorded Confirmed Last Taken Type atorvastatin 10 mg tablet 10 mg PO DAILY 01/02/21 08/25/22 09/13/22 History epinephrine 0.15 mg/0.3 mL 0.15 mg IM ONCE PRN Anaphylaxis 01/02/21 08/25/22 Unknown History injection,auto-injector trazodone 150 mg tablet 150 mg PO BEDTIME 01/02/21 08/25/22 09/13/22 History albuterol sulfate 90 mcg/actuation 90 mcg inhalation Q4-6H PRN 09/08/21 08/25/22 09/12/22 History aerosol inhaler Wheezing Exam Exam Date and Time: September 11, 2022922 Height,Weight and Vital Signs: Height 5 ft 9 in Weight 65.317 kg Assessment and Plan Assessment Anesthesia Assessment: Chart Reviewed Final Anesthetic Review Family History of Problems with Anesthesia: No History of Problems with Anesthesia: No Documented by User: Brooke Esparza MD 09/14/22 07:43 PMFSH Past Medical History Medical History COPD (chronic obstructive pulmonary disease) COVID-19 vaccine series completed Elevated cholesterol Fatty liver Gastritis GERD (gastroesophageal reflux disease) Herniated cervical disc History of hyperbaric oxygen therapy History of osteomyelitis Umbilical hernia Family History Family History Mother Lung cancer Brother Lung cancer Brain cancer Brother Lung cancer Surgical History Surgical History (Updated 09/04/22 @ 13:14 by Mehnaz Ariza RN) History of esophagogastroduodenoscopy (EGD) History of right cataract extraction History of surgery on extremity Hx of colonoscopy Social History Social History Are you a primary customer care associate to a significant other at home: No Do you presently have visiting nurse or other home services: No Patient Tobacco Use Status: Former Tobacco user Quit Date: 2014 Tobacco use type: Cigarette Years Smoked: 40 Are you DNR?: No Advance Directives: No Advance Directives Information Provided: Yes Advance Directives on File: No Current occupational status: disabled Meds Allergies Allergy/AdvReac Type Severity Reaction Status Date / Time bee pollen [bee stings] Allergy Severe Anaphylaxis Verified 08/31/22 07:21 scallops Allergy Severe ANAPHYLAXIS Verified 08/31/22 07:21 hydrocodone [From VICODIN] Allergy Intermediate ITCHING,THROAT Verified 08/31/22 07:21 SWELLS Home Medications Medication Instructions Recorded Confirmed Last Taken Type atorvastatin 10 mg tablet 10 mg PO DAILY 01/02/21 08/25/22 09/13/22 History epinephrine 0.15 mg/0.3 mL 0.15 mg IM ONCE PRN Anaphylaxis 01/02/21 08/25/22 Unknown History injection,auto-injector trazodone 150 mg tablet 150 mg PO BEDTIME 01/02/21 08/25/22 09/13/22 History albuterol sulfate 90 mcg/actuation 90 mcg inhalation Q4-6H PRN 09/08/21 08/25/22 09/12/22 History aerosol inhaler Wheezing Exam Airway Mallampati Class: II Neck ROM: Full Heart: rrr Lungs: cta Assessment and Plan Assessment Anesthesia Assessment: Anesthesia Plan Discussed Final Anesthetic Review NPO: Yes ASA Class: II Final Preanesthetic Review: No Changes in Pt Med Stat, Meds/Allgs Chart Reviewed, Consent Obtained/Reviewed and Anes Risks/Benef Reviewed Patient Risk: Low Procedure Risk: Low Anesthetic Plan Anesthetic Plan: MAC: Disposition: Standard PACU
[2022-09-14 06:05] VITALS: BP 90/56; PULSE 78; RESP 18; TEMP 36.1; O2SAT 98
[2022-09-14] MEDS: Tropicamide 1 % Ophth Sol 3 ML BTL 1 DROP EYE-LEFT ×3 (06:28→06:30)
[2022-09-14] MEDS: Tetracaine HCl/PF 0.5% Oph Sol 4 ML DROPS 1 DROP EYE-LEFT (06:28)
[2022-09-14] MEDS: Cyclopentolate 1 % Ophth Sol 2 ML DRPBTL 1 DROP EYE-LEFT ×3 (06:28→06:30)
[2022-09-14] MEDS: Lactated Ringers 500 ML 50 ML IV (06:28)
[2022-09-14] MEDS: Ketorolac Tromethamine 0.5% Op 5 ML DROPS 1 DROP EYE-LEFT ×3 (06:28→06:30)
[2022-09-14] MEDS: Phenylephrine HCL 2.5% Oph SoL 2 ML BOTTLE 1 DROP EYE-LEFT ×3 (06:29→06:30)
[2022-09-14 08:26] VITALS: BP 128/60; PULSE 60; RESP 16; TEMP 36.9; O2SAT 100
--- NOTE | 2022-09-14 08:27 | HO.PNOPHT ---
Ophthalmology Procedure Procedure Date of Service: 09/14/22 Ophthalmology Viscoelastic: Healsahil Duet Dual Pack Pro Ophthalmology Lenses: TECDAMIAN [id number] (20) Procedure Notes: PREOPERATIVE DIAGNOSIS: Decreased visual acuity left eye secondary to cataract POSTOPERATIVE DIAGNOSIS: Same PROCEDURE: Left cataract extraction with intraocular lens insertion SURGEON: Aníbal Zurita M.D. ANESTHESIA: Topical/MAC ESTIMATED BLOOD LOSS: None COMPLICATIONS: None After obtaining informed consent, the patient was brought to the operation room suite and placed in the supine position. After adequate sedation per anesthesia, topical drops of Tetracaine were given to the left eye. The eye was then prepped and draped in the usual sterile fashion. The operating room microscope was then positioned over the operative eye and a lid speculum placed. A paracentesis was created. Viscoelastic was then instilled into the anterior chamber. A three plane incision was then created temporally, utilizing a 2.85 mm keratome. Capsulotomy forceps were then utilized to create a circular tear capsulotomy. Hydrodissection and hydrodelineation were carried out until adequate mobilization of the nucleus occurred. Phacoemulsification was then utilized to remove the dense central nucleus followed by removal of the cortical material utilizing the automated aspiration irrigation unit. Viscoat elastic was instilled into the posterior capsular bag followed by placement of a posterior chamber intraocular lens without difficulty. The residual Viscoat elastic was then removed utilizing the automated IA machine. The wound was check and found to be watertight. The patient tolerated the procedure well and the lid speculum was removed. Intracameral injection of Vigamox 0.1 mL followed by a subtenon injection of Kenalog-40 0.2 mL were administered. The patient will be seen in the a.m.
== END 2022-09-14 08:33 | disposition home or self-care (01) ==
PROVIDERS: PCP Internal Medicine Medical Oncology; Visit Provider Ophthalmology
PROC: (CPT 66985; principal; 2022-09-14 08:30)
DX: H25.12 Age-related nuclear cataract, left eye (principal); H52.4 Presbyopia; J44.9 Chronic obstructive pulmonary disease, unspecified; K21.9 Gastro-esophageal reflux disease without esophagitis; E78.00 Pure hypercholesterolemia, unspecified; F32.A Depression, unspecified; N40.0 Benign prostatic hyperplasia without lower urinary tract symptoms; Z79.899 Other long term (current) drug therapy; Z88.8 Allergy status to other drugs, medicaments and biological substances; Z87.891 Personal history of nicotine dependence
CPT/HCPCS: 66984; J2250; J3010; J3301; V2632

== ENCOUNTER 2023-02-18 14:12 | Outpatient (REF) | payer MEDICARE, MEDICAID, SELFPAY ==
[2023-02-18 14:21] LABS: MANUAL DIFF FLAG NO
[2023-02-18 14:42] LABS: Basophils Absolute Auto 0.1 X10*3/uL (0.0-0.2); Basophils Percent Auto 0.6 % (0-2); Eosinophils Absolute Auto 0.2 X10*3/uL (0.0-0.4); Hematocrit 34.8 % (42.0-52.0); Hemoglobin 11.7 g/dl (14.0-18.0); Imm Gran Abs Auto 0.03 X10*3/uL (0.00-0.03); Imm Gran Pct Auto 0.3 % (0.0-0.4); Lymphocytes Absolute Auto 3.4 X10*3/uL (1.2-4.9); Lymphocytes Percent Auto 32.7 % (20-40); Mean Corpuscular HGB Conc 33.6 g/dl (31.0-36.0); Mean Corpuscular Hemoglobin 29.8 pg (27.0-33.0); Mean Corpuscular Volume 88.5 fL (80.0-98.0); Monocytes Absolute Auto 0.8 X10*3/uL (0.1-1.2); Monocytes Percent Auto 7.9 % (2-11); Neutrophils Absolute Auto 5.9 x10*3/uL (2.0-8.3); Neutrophils Percent Auto 56.5 % (45-73); Platelet Count 329 X10*3/uL (160-400); Red Blood Count 3.93 X10*6/uL (4.60-5.80); Red Cell Distribution Width 13.3 % (11.0-16.0); White Blood Count 10.4 X10*3/uL (4.8-10.8)
[2023-02-18 15:50] LABS: Alanine Aminotransferase 18 U/L (0-40); Albumin Level 4.5 g/dL (3.5-5.0); Alkaline Phosphatase 69 U/L (39-117); Anion Gap 13 (12-20); Aspartate Amino Transferase 20 U/L (5-37); Bilirubin Total 0.3 mg/dL (0.0-1.0); Blood Urea Nitrogen 10 mg/dL (9-16); Calcium 9.9 mg/dL (8.4-10.2); Carbon Dioxide 27 mmol/L (22-29); Chloride 105 mmol/L (96-108); Cholesterol 196 mg/dL (<200); Estimated Glomerular Filt Rate > 60; Glucose Fasting 100 mg/dL (60-99); HDL Cholesterol 42 mg/dL (>40); LDL Cholesterol Calculated 110 mg/dL (<100); Potassium 4.4 mmol/L (3.3-5.1); Sodium 141 mmol/L (135-145); Total Protein 7.3 g/dL (6.5-8.0); Triglycerides 220 mg/dL (<150)
[2023-02-18 16:14] LABS: Prostate Specific Antigen 1.33 ng/mL (<0.05-4.0)
== END 2023-02-18 14:13 | disposition home or self-care (01) ==
LOC: HO.LAB 14:12
PROVIDERS: PCP Internal Medicine Medical Oncology; Visit Provider Internal Medicine Medical Oncology
DX: E78.2 Mixed hyperlipidemia (principal); N40.0 Benign prostatic hyperplasia without lower urinary tract symptoms; Z12.5 Encounter for screening for malignant neoplasm of prostate
CPT/HCPCS: 36415; 80053; 80061; 84153; 85025

== ENCOUNTER 2023-10-14 11:06 | Outpatient (AMB) | payer MEDICARE, MEDICAID, SELFPAY ==
--- NOTE | 2023-10-14 11:18 | MHC.OFFVIS ---
Vital Signs 10/14/23 11:25 Height 5 ft 8 in Weight 141 lb BMI 21.4 BP 139/67 Blood Pressure Location Lt brachial Position Sitting Pulse 59 Intake Visit Reasons: Lump~ Lt flank Intake Note: Patient is seen in office for evaluation and treatment of a lump of the left flank. 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 This has been present for several years and has gradually increased in size. He reports discomfort especially when in bed sleeping on his left side. He denies any skin change, bleeding or discharge. He would like to have the lesion removed. [facility] Medical History History of osteomyelitis Umbilical hernia GERD (gastroesophageal reflux disease) Gastritis History of hyperbaric oxygen therapy COVID-19 vaccine series completed Herniated cervical disc Fatty liver COPD (chronic obstructive pulmonary disease) Elevated cholesterol Surgical History History of right cataract extraction History of esophagogastroduodenoscopy (EGD) History of surgery on extremity Hx of colonoscopy Family History Mother Lung cancer Brother Lung cancer Brain cancer Brother Lung cancer Social History Are you a primary health care coordinator to a significant other at home: No Do you presently have visiting nurse or other home services: No Patient Tobacco Use Status: Former Tobacco user Tobacco use type: Cigarette Years Smoked: 40 Current occupational status: disabled Review of Systems Const All systems reviewed & are unremarkable except as noted in HPI and below Physical Exam Vital Signs: Last Vital Signs Pulse 59 10/14/23 11:25 BP 139/67 10/14/23 11:25 BMI result Body Mass Index 21.4 Const General: no acute distress Nutritional Appearance: well nourished Orientation/consciousness: patient oriented x3 Chest Chest/axillae images: 1. 5 cm soft tissue mass located in the lower left chest, midclavicular line, mobile within the subcutaneous tissue suggestive of a lipoma Resp Effort & Inspection: normal respiratory effort, no audible wheezes, no cough and no respiratory distress Skin General skin exam: no rashes or lesions noted Neuro General: patient oriented x3 Extrem General: Yes no clubbing, cyanosis or edema Assessment & Plan Assessment & Plan (1) Lipoma of chest wall: Code(s): D17.1 - Benign lipomatous neoplasm of skin and subcutaneous tissue of trunk Category: Medical Plan 63-year-old male patient presenting with a soft tissue mass in the left chest wall consistent with a lipoma. I recommended an excision under local anesthesia as an office procedure and after discussion of the procedure, risks, and alternatives, he consents to the surgery. Coding Level of Care Code New Pt Level 4 (23338) Diagnoses Lipoma of chest wall D17.1
[2023-10-14 11:25] VITALS: BP 139/67; PULSE 59; BMI 21.4
== END 2023-10-14 11:45 | disposition home or self-care (01) ==
PROVIDERS: PCP Internal Medicine Medical Oncology; Referring Provider Internal Medicine Medical Oncology; Visit Provider Surgery
DX: D17.1 Benign lipomatous neoplasm of skin and subcutaneous tissue of trunk (principal)
CPT/HCPCS: 99204

== ENCOUNTER → 2023-10-14 11:06 | Outpatient (BNVA) | payer MEDICARE, MEDICAID, SELFPAY | PROVIDERS: PCP Internal Medicine Medical Oncology; Referring Provider Internal Medicine Medical Oncology; Visit Provider Surgery | DX: D17.1 Benign lipomatous neoplasm of skin and subcutaneous tissue of trunk (principal) | CPT/HCPCS: 99202 ==

== ENCOUNTER 2023-11-09 13:32 | Outpatient (REF) | payer MEDICARE, MEDICAID, SELFPAY | END 2023-11-09 13:33 | disposition home or self-care (01) | LOC: HO.LNP 13:32 | PROVIDERS: PCP Internal Medicine Medical Oncology; Visit Provider Surgery | DX: D17.1 Benign lipomatous neoplasm of skin and subcutaneous tissue of trunk (principal) | CPT/HCPCS: 11406; 88304 ==

== ENCOUNTER 2023-11-09 13:32 | Outpatient (AMB) | payer MEDICARE, MEDICAID, SELFPAY ==
--- NOTE | 2023-11-09 13:37 | A.OFFVIS_ITS ---
Intake Visit Reasons: excision Lump~ Lt flank Intake Note: Patient is seen in office for office procedure, excision of lipoma of the chest wall. Pt c/o: reports no complaints. Continuous Loft Operator Required: No Accompanied by: Other Relationship Allergies bee pollen [bee stings] Allergy (Severe, Verified 11/09/23 13:56) Anaphylaxis scallops Allergy (Severe, Verified 11/09/23 13:56) ANAPHYLAXIS hydrocodone [From VICODIN] Allergy (Intermediate, Verified 11/09/23 13:56) ITCHING,THROAT SWELLS Medication List - Last Reconciled 11/09/23 by Jordi Monteiro MD albuterol sulfate 90 mcg/actuation 90 mcg inhalation Q4-6H PRN atorvastatin 10 mg PO DAILY epinephrine 0.15 mg IM ONCE PRN trazodone 150 mg PO BEDTIME HPI Comments Details: Patient returns for excision of a left chest wall lipoma as previously described [facility] Medical History History of osteomyelitis Umbilical hernia GERD (gastroesophageal reflux disease) Gastritis History of hyperbaric oxygen therapy COVID-19 vaccine series completed Herniated cervical disc Fatty liver COPD (chronic obstructive pulmonary disease) Elevated cholesterol Surgical History History of right cataract extraction History of esophagogastroduodenoscopy (EGD) History of surgery on extremity Hx of colonoscopy Family History Mother Lung cancer Brother Lung cancer Brain cancer Brother Lung cancer Social History Are you a primary overnight caregiver to a significant other at home: No Do you presently have visiting nurse or other home services: No Patient Tobacco Use Status: Former Tobacco user Tobacco use type: Cigarette Years Smoked: 40 Current occupational status: disabled Physical Exam Chest Other: 5 cm chest wall lipoma located in the lower costal margin as noted below Chest/axillae images: 2 1. Lipoma left chest wall, 5 cm Office Procedures Excision Details: Preoperative diagnosis: Lipoma left lower chest wall Postoperative diagnosis: Same Procedure: Excision of lipoma left lower chest wall Surgeon: Jordi Monteiro MD Barrel Bridge Assembler: None Anesthesia: Lidocaine 1% with epinephrine Indications for procedure: 5 cm lipoma located submuscular over left lower costal margin Operative findings: 5 cm lipoma located submuscular left lower chest wall Specimen: Lipoma left chest wall Estimated blood loss: 2 mL Complications: None Procedure details: Patient was brought to the procedure room and placed in a supine position. The site of surgery was confirmed by the patient in the left lower chest wall. After assuring informed consent the skin was prepped with Betadine and draped in a sterile fashion. Local anesthesia was then infiltrated in a transverse fashion directly over the lipoma. A 3 cm incision was then made directly over the lipoma and carried out through subcutaneous tissue. Dissection was continued beyond subcutaneous tissue and below the thin layer of muscle. Lipoma was located within the muscle. Combination of sharp and blunt dissection was then used to excise the 5 cm lipoma from below the muscle layer. This was passed off the table and sent to pathology for further examination. Muscle was then reapproximated using interrupted 3-0 Polysorb sutures. Dermis was reapproximated using interrupted 3-0 Polysorb sutures. Skin was closed using a running subcuticular 3-0 Polysorb suture. Steri-Strips, 2 x 2 gauze and Tegaderm were then applied. The patient tolerated the procedure well. He was discharged to home in stable condition. [id number]/arms/legs >4cm Procedure code (CPT) selection complete Assessment & Plan Assessment & Plan (1) Lipoma of chest wall: Code(s): D17.1 - Benign lipomatous neoplasm of skin and subcutaneous tissue of trunk Category: Medical Plan Patient underwent excision of a lipoma today and tolerated this well. He will return in 1 week for wound check. Orders: Orders 2 Surgical Today D17.1 - Benign lipomatous neoplasm of skin and subcutaneous tissue of trunk Coding Level of Care Code Procedure Only Diagnoses Lipoma of chest wall D17.1 CPT Codes Trunk/Arms/Legs - CPT: 06110-[id number]/arms/legs >4cm ([id number])
== END 2023-11-09 14:37 | disposition home or self-care (01) ==
PROVIDERS: PCP Internal Medicine Medical Oncology; Visit Provider Surgery
DX: D17.1 Benign lipomatous neoplasm of skin and subcutaneous tissue of trunk (principal)
CPT/HCPCS: 11406

== ENCOUNTER 2023-11-18 10:30 | Outpatient (AMB) | payer MEDICARE, MEDICAID, SELFPAY ==
--- NOTE | 2023-11-18 10:31 | MHC.OFFVIS ---
Vital Signs 11/18/23 10:36 Height 58 ft Weight 142 lb BMI 0.2 BP 120/62 Blood Pressure Location Lt brachial Position Sitting Pulse 54 Intake Visit Reasons: s/p excision Lump~ Lt flank Intake Note: Patient is seen in office for post op assessment post excision of left flank lump. Pt c/o: area sore, denies redness, discharge, swelling or other complications off proc Broach Setter Required: No Accompanied by: Self / Same As Patient Allergies bee pollen [bee stings] Allergy (Severe, Verified 11/18/23 10:36) Anaphylaxis scallops Allergy (Severe, Verified 11/18/23 10:36) ANAPHYLAXIS hydrocodone [From VICODIN] Allergy (Intermediate, Verified 11/18/23 10:36) ITCHING,THROAT SWELLS HPI Comments Details: Patient returns 1 week following excision of a lipoma from the left lower chest. Tolerated the procedure well and his wounds and he denies any ongoing symptoms. [facility] Medical History History of osteomyelitis Umbilical hernia GERD (gastroesophageal reflux disease) Gastritis History of hyperbaric oxygen therapy COVID-19 vaccine series completed Herniated cervical disc Fatty liver COPD (chronic obstructive pulmonary disease) Elevated cholesterol Surgical History History of right cataract extraction History of esophagogastroduodenoscopy (EGD) History of surgery on extremity Hx of colonoscopy Family History Mother Lung cancer Brother Lung cancer Brain cancer Brother Lung cancer Social History Are you a primary children's zoo caretaker to a significant other at home: No Do you presently have visiting nurse or other home services: No Patient Tobacco Use Status: Former Tobacco user Tobacco use type: Cigarette Years Smoked: 40 Current occupational status: disabled Physical Exam Vital Signs: Last Vital Signs Pulse 54 11/18/23 10:36 BP 120/62 11/18/23 10:36 BMI result Body Mass Index 0.2 Chest Other: Incision in the left chest wall is clean, dry, and intact. The Steri-Strips are intact. Chest/axillae images: 1. Incision left chest Assessment & Plan Assessment & Plan (1) Lipoma of chest wall: Code(s): D17.1 - Benign lipomatous neoplasm of skin and subcutaneous tissue of trunk Category: Medical Plan 63-year-old male patient returning 1 week following excision of a lipoma of the left lower chest. He tolerated the procedure well and his wounds are healing nicely. He should follow up as needed. Coding Level of Care Code Global (99453) Diagnoses Lipoma of chest wall D17.1
[2023-11-18 10:36] VITALS: BP 120/62; PULSE 54
== END 2023-11-18 10:54 | disposition home or self-care (01) ==
PROVIDERS: PCP Internal Medicine Medical Oncology; Visit Provider Surgery
DX: D17.1 Benign lipomatous neoplasm of skin and subcutaneous tissue of trunk (principal)
CPT/HCPCS: 99024

== ENCOUNTER → 2023-11-18 10:30 | Outpatient (BNVA) | payer MEDICARE, MEDICAID, SELFPAY | PROVIDERS: PCP Internal Medicine Medical Oncology; Visit Provider Surgery | DX: D17.1 Benign lipomatous neoplasm of skin and subcutaneous tissue of trunk (principal) | CPT/HCPCS: 99212 ==

== ENCOUNTER 2023-11-19 14:29 | Outpatient (REF) | payer MEDICARE, MEDICAID, SELFPAY ==
--- NOTE | ~2023-11-19 | XR_ITS ---
EXAMINATION: XR FOOT, LEFT CLINICAL INFORMATION: Left foot pain, shooting pain in foot for months and pain in fourth digit. No known injury. COMPARISON: 01/29/2015. TECHNIQUE: AP, lateral, and oblique views of the left foot. FINDINGS: Diffuse demineralization. Advanced degenerative changes at the first metatarsophalangeal joint with joint space narrowing and hypertrophic change. The fourth and fifth toes are flexed, limiting evaluation. Mild degenerative changes at the midfoot. XR/XR foot LT min 3V IMPRESSION: 1. Advanced degenerative changes in the first metatarsophalangeal joint. 2. Mild degenerative changes at the midfoot. 3. No displaced fracture appreciated in the fourth toe, however, evaluation limited as the fourth and fifth toes are flexed. This study was presented today December 01, 2023 for interpretation. Stat results provided at this time as requested by referring provider.
== END 2023-11-19 14:30 | disposition home or self-care (01) ==
LOC: HO.XRAY 14:29
PROVIDERS: PCP Internal Medicine Medical Oncology; Visit Provider Internal Medicine Medical Oncology
DX: M79.672 Pain in left foot (principal)
CPT/HCPCS: 73630

== ENCOUNTER 2024-06-19 11:53 | Outpatient (REF) | payer MEDICARE, SELFPAY ==
--- NOTE | ~2024-06-19 | XR_ITS ---
EXAMINATION: XR CHEST 2 VIEWS HISTORY: PLEURITIC PAIN COMPARISON: Comparison is made with the prior examination dated 01/10/2021. FINDINGS: PA and lateral views of the chest are submitted. The lungs are expanded and clear. There is no pleural effusion, pneumothorax, or pulmonary vascular congestion. The heart is normal in size. Again seen are multiple old healed right rib fractures. XR/XR chest 2V IMPRESSION: No acute cardiopulmonary abnormality. Electronically signed by: Luiz Nick MD 06/19/2024 12:31 PM GENESIS HUERTA
--- OUTSIDE RECORDS SUMMARY | 2024-06-19 13:46 | XMS_ITS ---
Author Organization Luiz Maguire III, MD Address [address] [place] [address] [place] [address] Care Team Providers Care Assistant Tennis Professional Name Role Phone Luiz Maguire Primary Care Provider Medications Medication SIG (Take, Route, Fr equency, Duration) Notes Start Date End Date Status Azithromycin 250 MG as directed Orally 2 Tablets on the first day, one tablet the rest of the days for 5 days 01/25/2024 Acti ve Social History Sex Assigned At : Social History Observation Description Sex Assigned At Male Encounters Encounter Location Date Provider Diagnosis Luiz Maguire III, MD [address] [place] [address] [place] [address] 01/25/2024 Luiz Maguire Plan Of Treatment Medication Medication Name Sig Start Date Stop Date Notes Azithromycin 250 MG as directed Orally 2 Tablets on the first day, one tablet the rest of the days for 5 days 01/25/2024 Next Appt Details Provider Name:Luiz Maguire, 07/07/2024 03:00:00 PM, [address] [facility] [address], [place], [address], Provider Name:Luiz Maguire, 03/13/2025 02:00:00 PM, [address] [place] [address] [address], [place], [address], Progress Notes * Aakash CORONADODOB:1959 (63 yo M)Acc No.[id number]:01/25/2024 Patient:?Aakash CORONADO :1960???Age:63 Y???Sex:Male Address:[facility] [place] [address] * Refills? Start Azithromycin Tablet, 250 MG, Orally, 6, as directed, 2 Tablets on the first day, one tablet the rest of the days, 5 days, Refills=0 * true * Date:? Generated for Taco cavanaugh/Negrito/eTransmitting on:?06/19/2024 01:46 PM EST
--- OUTSIDE RECORDS SUMMARY | 2024-06-19 13:46 | XMS_ITS ---
Author Organization Luiz Maguire III, MD Address [address] [place] [address] [place] [address] Care Team Providers Care Sewer Cleaner Name Role Phone Luiz Maguire Primary Care Provider [phone] Allergies Allergen (clinical drug ingredient) Drug/Non Drug Allergy documented on EMR Reaction Allergy Type Onset Date Status Vicodin Unknown Drug Allergy Active Shellfish (FN) scallops (uncoded) Unknown Allergy Active Bee Sting anaphylaxis Allergy 10/18/2019 Active REASON FOR VISIT Pain under left arm x 2 weeks, chest wall, Medications Medication SIG (Take, Route, Frequency, Duration) Notes Start Date End Date Status Centrum Silver - as directed Orally Active EPINEPHrine 0.15 MG/0.3ML one pen Inject ion once when stung by bee 11/14/2020 Active Albuterol Sulfate HFA 108 (90 Base) MCG/ACT INHALE 1 PUFF BY MOUTH EVERY 4 HOURS NEEDED Active Atorvastatin Calcium 10 MG TAKE 1 TABLET BY MOUTH EVERY DAY FOR 90 DAYS Active dexAMETHasone 2 MG TAKE 1 TABLET BY [place] EVERY 12 HOURS ORALLY EVERY 12 HRS WITH FOOD 14 DAYS Active EPINEPHrine 0.15 MG/0.3ML use one pen In jection for a bee sting 03/08/2024 Active traZODone HCl 150 MG TAKE 1 TABLET BY MO [facility] EVERYDAY AT BEDTIME Active Social History Tobacco Use: Social History Observation Description Date Details (start date - stop date) Former Smoker NA - NA Sex Assigned At : Social History Observation Description Sex Assigned At Male Tobacco Use/Smoking Question Answer Notes Patient is a former smoker How long has it been since you last smoked? > 10 years Additional Findings: Tobacco Non-User Ex-cigaret te smoker Vital Signs Temperature 98.1 degrees Fahrenheit 06/19/19 25 Blood pressure systolic 136 mm Hg 06/19/19 25 Blood pressure diastolic 75 mm Hg 025 Heart Rate 57 /min 06/19/2024 Height 69 in 06/19/2024 Weight 146 lbs 06/19/2024 BMI 21.56 kg/m2 06/19/2024 Encounters Encounter Location Date Provider Diagnosis Luiz Maguire III, MD [address] [place] [address] [place] [address] 06/19/2024 Luiz Maguire COPD (chronic obstructive pulmonary disease) J44.9 ; Mixed hyperlipidemia E78.2 ; Anxiety disorder due to multiple medical problems F06.8 and Pleuritic pain R07.81 Assessments Encounter Date Diagnosis (ICD Code) Assessment Notes Treat ment Notes Treatment Clinical Notes 06/19/2024 COPD (chronic obstructive pulmonary disease) (ICD-10 - J44.9) His breathing is unlabored and unrestricted. He has not smoked in a prolonged time. He is doing very well with respiration. 06/19/2024 Mixed hyperlipidemia (ICD-10 - E78.2) 06/19/2024 Anxiety disorder due to multiple medical problems (ICD-10 - F06.8) 06/19/2024 Pleuritic pain (ICD-10 - R07.81) Plan Of Treatment Medication Medication Name Sig Start Date Stop Date Notes Centrum Silver - as directed Orally EPINEPHrine 0.15 MG/0.3ML one pen Inject ion once when stung by bee 11/14/2020 Albuterol Sulfate HFA 108 (9 0 Base) MCG/ACT INHALE 1 PUFF BY MOUTH EVERY 4 HOURS NEEDED Atorvastatin Calcium 10 MG TAKE 1 TABLET BY MOUTH EVERY DAY FOR 90 DAYS dexAMETHasone 2 MG TAKE 1 TABLET BY H[place]TON EVERY 12 HOURS ORALLY EVERY 12 HRS WITH FOOD 14 DAYS EPINEPHrine 0.15 MG/0.3ML use one pen In jection for a bee sting 03/08/2024 traZODone HCl 150 MG TAKE 1 TABLET BY MO [facility] EVERYDAY AT BEDTIME Pending Test Test Name Order Date LDH 06/19/2024 SED RATE (ESR) 06/19/2024 D-DIMER 06/19/2024 XR CHEST 2 VIEW PA & LAT 06/19/2024 Next Appt Details Follow Up: As Scheduled, Adenike son: OV Provider Name:Luiz Maguire, 07/07/2024 03:00:00 PM, [address] [place] [address] [address], [place], [address], Provider Name:Luiz Maguire, 03/13/2025 02:00:00 PM, [address] [place] [address] [address], [place], [address], Progress Notes * Aakash CORONADODOB:1959 (64 yo M)Acc No.[id number]:06/19/2024 Patient:?Aakash CORONADO Provider:?Luiz Maguire MD :1960???Age:64 Y???Sex:Male Luis Fernando e:06/19/2024 Address:[address] [place] [address] [id number] Subjective: * Chief Complaints: * ???1. Pain under left arm x 2 weeks. 2. Chest wall,. * HPI: ???COVID-19 Screening:?Questions?Have you had any new onset fever, chills, cough, congestion, sore throat, shortness of breath, muscle aches??No * ROS:?General/Constitutional:?pain?only normal aches and pains.?Chills?denies.?Fatigue?admits.?Fever?denies.?ENT:?Decreased hearing?denies.?Respiratory:?Cough?denies.?Cardiovascular:?Chest pain with exertion?denies.?Dyspnea on exertion?denies.?Shortness of breath?denies.?Gastrointestinal:?Constipation?denies.?Decreased appetite?denies.?Diarrhea?denies.?Heartburn?denies.?Nausea?denies.?Rectal bleeding?denies.?Vomiting?denies.?Hematology:?bruising?denies.?petechiae?denies.?Swollen glands?none have been noted.?Genitourinary:?Frequent urination?denies.?Musculoskeletal:?Muscle aches?denies.?Painful joints?denies.?Sciatica?denies.?Weakness?denies.?Skin:?Itching?denies.?Rash?denies.?Skin lesion(s)?denies.?Neurologic:?Difficulty speaking?denies.?Dizziness?denies.?Headache?denies.?Low back pain?denies.?Psychiatric:?Depressed mood?denies.? * Medical History:?Diverticuli tis, COPD, Former smoker, Anxiety, Gerd, Umbilical hernia, Polysubstance abuse, Lumbar radiculopathy, herpes zoster September 2016, Hearing loss right ear, Osteomyelitis right tibia 2020, Alcohol use disorderIn long-term recovery. * Surgical History:?umbilical herniorrhaphy 2011, compound fracture right femur, skin graft from right thigh 1980, blood clots removals 2019, Debridement osteomyelitis, right tibia 2020, No history . * Hospitalization/Major Diagno stic Procedure:?No history . * Family History:?Father: dece ased 81 yrs, chronic obstructive pulmonary disease, diverticulitis.?Mother: 72 yrs, breast cancer, lung cancer, diagnosed with Cancer.?Siblings: alive, brain cancer, lung cancer.?6 brother(s) , 1 sister(s) . 2 son(s) - healthy. .? He is not aware of any other malignancies or other inherited cancer family syndrome. He has a history of alcoholism and polydrug abuse. There is alcoholism in his family. There is a history of depression in his family. He is not aware of any other history of addiction substance abuse or mental illness. * Social History:?Tobacco Use:?Tobacco Use/Smoking?Patient is a?former smoker ?How long has it been since you last smoked??> 10 years ?Additional Findings: Tobacco Non-User?Ex-cigarette smoker ???He has been to [place] for 23 years and not working. He has no toxic exposures. He enjoys poker, football. [employer], [employer]. He was born in [place], [place]. * Medications:?Taking EPINEPHr ine 0.15 MG/0.3ML Solution Auto-injector use one pen Injection for a bee sting , Taking traZODone HCl 150 MG Tablet TAKE 1 TABLET BY MOUTH EVERYDAY AT BEDTIME , Taking Atorvastatin Calcium 10 MG Tablet TAKE 1 TABLET BY MOUTH EVERY DAY FOR 90 DAYS , Taking Centrum Silver - Tablet as directed Orally , Taking EPINEPHrine 0.15 MG/0.3ML Solution Auto-injector one pen Injection once when stung by bee , Taking Albuterol Sulfate HFA 108 (90 Base) MCG/ACT Aerosol Solution INHALE 1 PUFF BY MOUTH EVERY 4 HOURS NEEDED , Taking dexAMETHasone 2 MG Tablet TAKE 1 TABLET BY MOUTH EVERY 12 HOURS ORALLY EVERY 12 HRS WITH FOOD 14 DAYS , Discontinued Azithromycin 250 MG Tablet as directed Orally 2 Tablets on the first day, one tablet the rest of the days , Medication List reviewed and reconciled with the patient * Allergies:?Vicodin, scallops , Bee Sting: anaphylaxis - Allergy - Criticality High - Onset Date 10/18/2019. Objective: * Vitals:?Ht: 69, Wt: 146, BMI :21.56, BP: 136/75, HR: 57, Temp: 98.1, Ht-cm: 175.26, Wt-k.22. * Examination: ???General Examination: ?GENERAL APPEARANCE:?pleasant, well nourished, well developed, in no acute distress, calm and relaxed.?HEAD:?atraumatic, normocephalic.?EYES:?eomi, perrla, anicteric, conjugate.?EARS:?normal.?NOSE:?septum intact.?ORAL CAVITY:?normal, unremarkable.?NECK/THYROID:?no jugular venous distention, no carotid bruit, thyroid normal.?LYMPH NODES:?no enlarged lymph nodes,spleen normal.?SKIN:?no suspicious lesions, anicteric.?HEART:?no clicks, gallops, murmurs, or rubs, regular rhythm, S1, S2 normal, no s3, or vascular bruits.?LUNGS:?clear to auscultation .?BREASTS:??no masses palpable bilaterally.?ABDOMEN:?bowel sounds normal, no ascites, no organomegaly, no mass.?RECTAL EXAM:?not examined.?MUSCULOSKELETAL:?extremities unremarkable, no clubbing, cyanosis or edema.?PERIPHERAL PULSES:?normal.?NEUROLOGIC:?alert and oriented, cranial nerves 2-12 grossly intact, deep tendon reflexes 2+ symmetrical, motor strength normal upper and lower extremities, sensory exam intact.?PSYCH:?alert, oriented.? Assessment: * Assessment: 1.?COPD (chronic obstructive pulmonary disease) - J44.9???Notes :His breathing is unlabored and unrestricted. He has not smoked in a prolonged time. He is doing very well with respiration.???2.?Mixed hyperlipidemia - E78.2???3.?Anxiety disorder due to multiple medical problems - F06.8???4.?Pleuritic pain - R07.81??? Plan: * Treatment: 2.?Mixed hyperlipidemia?LAB: LDH ?LAB: SED RATE (ESR) ?LAB: D-DIMER 3.?Anxiety disorder due to m ultiple medical problems?LAB: LDH ?LAB: SED RATE (ESR) ?LAB: D-DIMER 4.?Pleuritic pain?Imaging: XR CHEST 2 VIEW PA & LAT 5.?Others? Continue EPINEPHrine Solution Auto-injector, 0.15 MG/0.3ML, use one pen, Injection, for a bee sting.?? * Follow Up:?As Scheduled (Adenike son: OV) * Images: * The named appointment provid er may or may not be the originator of this progress note, and it is not deemed complete until electronically signed by the appointment provider. Sign off status: Pending * Provider:?Luiz Maguire MD Date:?05/28 Generated for Taco cavanaugh/Negrito/eTlatoniasmitting on:?06/19/2024 01:46 PM EST History and Physical Notes * HPI (History of Present Illness) Category Sub-Category Detail Notes COVID-19 Screening Questions Have you had any new onset fever, chills, cough, congestion, sore throat, shortness of breath, muscle aches?: No Examination Category Sub-Category Detail Notes General Examination GENERAL APPEARANCE: pleasant , well nourished, well developed, in no acute distress, calm and relaxed HEAD: atraumatic, normocep halic EYES: eomi, perrla, anicte machelle, conjugate EARS: normal NOSE: septum intact NECK/THYROID: no jugular venous di stention, no carotid bruit, thyroid normal HEART: no clicks, gallops, murmurs, or rubs, regular rhythm, S1, S2 normal, no s3, or vascular bruits LUNGS: clear to auscultatio n ABDOMEN: bowel sounds normal, no ascites, no organomegaly, no mass NEUROLOGIC: alert and oriented, cranial nerves 2-12 grossly intact, deep tendon reflexes 2+ symmetrical, motor strength normal upper and lower extremities, sensory exam intact SKIN: no suspicious lesion s, anicteric PERIPHERAL PULSES: normal BREASTS: no masses palpable b ilaterally MUSCULOSKELETAL: extremities unremark able, no clubbing, cyanosis or edema LYMPH NODES: no enlarged lymph no cipriano,spleen normal RECTAL EXAM: not examined PSYCH: alert, oriented ORAL CAVITY: normal, unremarkable
--- OUTSIDE RECORDS SUMMARY | 2024-06-19 13:46 | XMS_ITS ---
Author Organization Luiz Maguire III, MD Address [address] [place] [address] [place] [address] Care Team Providers Care Cover Assembler Name Role Phone Luiz Maguire Primary Care Provider Allergies Allergen (clinical drug ingredient) Drug/Non Drug Allergy documented on EMR Reaction Allergy Type Onset Date Status Vicodin Unknown Drug Allergy Active Shellfish (FN) scallops (uncoded) Unknown Allergy Active Bee Sting anaphylaxis Allergy 10/18/2019 Active REASON FOR VISIT Annual Exam Medications Medication SIG (Take, Route, Frequency, Duration) Notes Start Date End Date Status Centrum Silver - as directed Orally Active Atorvastatin Calcium 10 MG TAKE 1 TABLET BY MOUTH EVERY DAY FOR 90 DAYS Active Albuterol Sulfate HFA 108 (90 Base) MCG/ACT INHALE 1 PUFF BY MOUTH EVERY 4 HOURS NEEDED Active EPINEPHrine 0.15 MG/0.3ML one pen Inject ion once when stung by bee 11/14/2020 Active traZODone HCl 150 MG TAKE 1 TABLET BY MO [place] EVERYDAY AT BEDTIME Active EPINEPHrine 0.15 MG/0.3ML use one pen In jection for a bee sting for 1 days 03/08/2024 Active Azithromycin 250 MG as directed Orally 2 Tablets on the first day, one tablet the rest of the days 01/25/2024 Active dexAMETHasone 2 MG TAKE 1 TABLET BY HAMILTON TH EVERY 12 HOURS ORALLY EVERY 12 HRS WITH FOOD 14 DAYS Active Social History Tobacco Use: Social History [...] Non-User Ex-cigaret te smoker Vital Signs Temperature 97.3 degrees Fahrenheit 03/08/20 24 Blood pressure systolic 119 mm Hg 03/08/20 24 Blood pressure diastolic 60, 119 mm Hg 024 Height 69 in 03/08/2024 Weight 144 lbs 03/08/2024 BMI 21.26 kg/m2 03/08/2024 Encounters Encounter Location Date Provider Diagnosis Luiz Maguire III, MD [address] [place] [address] [place] [address] 03/08/2024 Luiz Maguire COPD (chronic obstructive pulmonary disease) J44.9 ; Depression F32.9 ; GERD (gastroesophageal reflux disease) K21.9 ; Mixed hyperlipidemia E78.2 ; Lumbosacral radiculopathy M54.17 ; Former smoker Z87.891 and Cervical radiculopathy M54.12 Assessments Encounter Date Diagnosis (ICD Code) Assessment Notes Treat ment Notes Treatment Clinical Notes 03/08/2024 COPD (chronic obstructive pulmonary disease) (ICD-10 - J44.9) His breathing is unlabored and unrestricted. He has not smoked in a prolonged time. He is doing very well with respiration. 03/08/2024 Depression (ICD-10 - F32.9) His depression was very minimal today. He continued on current therapy. 03/08/2024 GERD (gastroesophageal reflux disease) (ICD-10 - K21.9) His reflux symptoms are well controlled with medication. He is sleeping through the night usually. No change in his medication was necessary 03/08/2024 Mixed hyperlipidemia (ICD-10 - E78.2) His lipid values have been in the normal range.. We discussed diet and nutrition and the elements of a low animal fat diet today. Comprehensive blood work with a fasting lipid profile has been ordered 03/08/2024 Lumbosacral radiculopathy (ICD-10 - M54.17) The low back pain has now completely resolved and he is comfortable. 03/08/2024 Former smoker (ICD-1 0 - Z87.891) He seems highly motivated not to smoke. His COPD has improved. He has a strategy to prevent relapse in times of stress and illness. 03/08/2024 Cervical radiculopathy (ICD-10 - M54.12) He has no residual pain in his neck and the strength in his left arm is now back to normal. Plan Of Treatment Medication Medication Name Sig Start Date Stop Date Notes Centrum Silver - as directed Orally Atorvastatin Calcium 10 MG TAKE 1 TABLET BY MOUTH EVERY DAY FOR 90 DAYS Albuterol Sulfate HFA 108 (9 0 Base) MCG/ACT INHALE 1 PUFF BY MOUTH EVERY 4 HOURS NEEDED EPINEPHrine 0.15 MG/0.3ML one pen Inject ion once when stung by bee 11/14/2020 traZODone HCl 150 MG TAKE 1 TABLET BY MO [facility] EVERYDAY AT BEDTIME EPINEPHrine 0.15 MG/0.3ML use one pen In jection for a bee sting for 1 days 03/08/2024 Azithromycin 250 MG as directed Orally 2 Tablets on the first day, one tablet the rest of the days 01/25/2024 dexAMETHasone 2 MG TAKE 1 TABLET BY HAMILTON EVERY 12 HOURS ORALLY EVERY 12 HRS WITH FOOD 14 DAYS Pending Test Test Name Order Date PROFILE, FASTING (COMPREHENSIVE METABOLI C) 03/08/2024 PSA, TOTAL 03/08/2024 CBC WITH AUTO DIFF 03/08/2024 Lipid Panel 03/08/2024 Next Appt Details Follow Up: 4 Months, In four months, Reason: OV, Routine check-up Provider Name:Luiz Maguire, 07/07/2024 03:00:00 PM, [address] [place] [address] [place], [place], [phone], Provider Name:Luiz Maguire, 03/13/2025 02:00:00 PM, [address] [place] [address] [place], [address], Progress Notes * Aakash CORONADODOB:1959 (64 yo M)Acc No.[id number]:03/08/2024 Progress Notes Patient:Aakash WRIGHT Provider:?Luiz Maguire MD :1960???Age:64 Y???Sex:Male Luis Fernando e:03/08/2024 Address:[address] [place] [address] [id number] Subjective: * Chief Complaints: * ???Annual Exam * HPI: ???Depression Screening:?PHQ-9?Little interest or pleasure in doing things?Not at all ?Feeling down, depressed, or hopeless?Not at all ?Trouble falling or staying asleep, or sleeping too much?Not at all ?Feeling tired or having little energy?Not at all ?Poor appetite or overeating?Not at all ?Feeling bad about yourself or that you are a failure, or have let yourself or your family down?Not at all ?Trouble concentrating on things, such as reading the newspaper or watching television?Not at all ?Moving or speaking so slowly that other people could have noticed; or the opposite, being so fidgety or restless that you have been moving around a lot more than usual?Not at all ?Thoughts that you would be better off or of hurting yourself in some way?Not at all ?Total Score?0 ???COVID-19 Screening:?Questions?Have you experienced fever, chills, cough, sore throat, shortness of breath, difficulty breathing, muscle aches, loss of taste or smell??Yes 1 week Cough ?Have you been exposed to the virus within the last 10 days??No ?Have you travelled internationally in the last 10 days??No ?Have you been exposed to COVID-19 in the past??No ???SDOH Questions:?SDOH Questions?In the past year have you been worried about losing your housing??No ?In the past year have you or any family members you live with been unable to get any of the following when it was really needed? Check all that apply:?None ???:? The patient, a 64-year-old male, presented with a complaint of foot pain, which he had discussed with a foot doctor. The foot doctor suggested it might be a nerve issue and prescribed a shoe insert to alleviate pressure. The patient also mentioned a respiratory issue that had been ongoing for a week but was starting to clear up. He reported no issues with heartburn, but did mention occasional back and neck pain. The patient also has hearing aids, but did not wear them on the day of the visit due to discomfort. He reported no issues with urination and his depression was under control. The patient also had a skin issue, which was checked and confirmed to not be cancerous. * ROS:?General/Constitutional:?pain?Left foot.?Chills?denies.?Fatigue?admits.?Fever?denies.?ENT:?Decreased hearing?in both ears.?Respiratory:?Cough?denies.?Cardiovascular:?Chest pain with exertion?denies.?Dyspnea on exertion?denies.?Shortness of breath?denies.?Gastrointestinal:?Constipation?occasional.?Decreased appetite?denies.?Diarrhea?denies.?Denies?Heartburn,?denies.?Nausea?denies.?Recta l bleeding?denies.?Vomiting?denies.?Hematology:?bruising?denies.?petechiae?denies.?Swollen glands?none have been noted.?Genitourinary:?Frequent urination?once a night.?Musculoskeletal:?Muscle aches?denies.?Painful joints?denies.?Sciatica?denies.?Weakness?denies.?Podiatric:?Admits?Foot pain.?Skin:?Itching?denies.?Rash?denies.?Skin lesion(s)?denies.?Neurologic:?Difficulty speaking?denies.?Dizziness?denies.?Headache?denies.?Low back pain?denies.?Psychiatric:?Depressed mood?denies.? * Medical History:? * Surgical History:?umbilical herniorrhaphy 2012compound fracture right femur, skin graft from right thigh 1981blood clots removals 2019Debridement osteomyelitis, right tibia 2020No history * Hospitalization/Major Diagno stic Procedure:?No history * Family History:?Father: dece ased 81 yrs, [...] Tobacco Non-User?Ex-cigarette smoker ???He has been to [place] for 23 years and not working. He has no toxic exposures. He enjoys [employer], football. [employer], [employer]. He was born in [place], [place]. * Medications:?TakingtraZODone HCl 150 MG Tablet TAKE 1 TABLET BY MOUTH EVERYDAY AT BEDTIME Atorvastatin Calcium 10 MG Tablet TAKE 1 TABLET BY MOUTH EVERY DAY FOR 90 DAYS Centrum Silver - Tablet as directed Orally EPINEPHrine 0.15 MG/0.3ML Solution Auto-injector one pen Injection once when stung by bee Albuterol Sulfate HFA 108 (90 Base) MCG/ACT Aerosol Solution INHALE 1 PUFF BY MOUTH EVERY 4 HOURS NEEDED Taking traZODone HCl 150 MG Tablet TAKE 1 TABLET BY MOUTH EVERYDAY AT BEDTIME Taking Atorvastatin Calcium 10 MG Tablet TAKE 1 TABLET BY MOUTH EVERY DAY FOR 90 DAYS Taking Centrum Silver - Tablet as directed Orally Taking EPINEPHrine 0.15 MG/0.3ML Solution Auto-injector one pen Injection once when stung by bee Taking Albuterol Sulfate HFA 108 (90 Base) MCG/ACT Aerosol Solution INHALE 1 PUFF BY MOUTH EVERY 4 HOURS NEEDED Not-Taking/PRNdexAMETHasone 2 MG Tablet TAKE 1 TABLET BY MOUTH EVERY 12 HOURS ORALLY EVERY 12 HRS WITH FOOD 14 DAYS Azithromycin 250 MG Tablet as directed Orally 2 Tablets on the first day, one tablet the rest of the days Medication List reviewed and reconciled with the patientNot-Taking/PRN dexAMETHasone 2 MG Tablet TAKE 1 TABLET BY MOUTH EVERY 12 HOURS ORALLY EVERY 12 HRS WITH FOOD 14 DAYS Not-Taking/PRN Azithromycin 250 MG Tablet as directed Orally 2 Tablets on the first day, one tablet the rest of the days Medication List reviewed and reconciled with the patient * Allergies:?VicodinscallopsBe e Sting: anaphylaxis - Allergy - Criticality High - Onset Date 10/18/2019no[Allergies Verified] Objective: * Vitals:?Ht: 69, Wt: 144, BMI :21.26, BP: 119/60,119/60, Temp: 97.3, Ht-cm: 175.26, Wt-k.32. * Examination: ???General Examination: ?GENERAL APPEARANCE:?pleasant, well nourished, well developed, in no acute distress, calm and relaxed, man.?HEAD:?atraumatic, normocephalic.?EYES:?eomi, perrla, anicteric, conjugate.?EARS:?normal.?NOSE:?septum intact.?ORAL CAVITY:?normal, unremarkable.?NECK/THYROID:?no jugular venous distention, no carotid bruit, thyroid normal.?LYMPH NODES:?no enlarged lymph nodes,spleen normal.?SKIN:?no suspicious lesions, anicteric.?HEART:?no clicks, gallops, murmurs, or rubs, regular rhythm, S1, S2 normal, no s3, or vascular bruits.?LUNGS:?, diminished breath sounds throughout, no wheezes, rales, rhonchi, good air movement.?BREASTS:??no masses palpable bilaterally.?ABDOMEN:?bowel sounds normal, no ascites, no organomegaly, no mass.?RECTAL EXAM:?not examined.?MUSCULOSKELETAL:??no clubbing, cyanosis or edema, Orthosis that spreads toes left foot, long vertical defect in the right femur at site of previous osteomyelitis, no discharge noted scar well healed.?PERIPHERAL PULSES:?normal.?NEUROLOGIC:?alert and oriented, cranial nerves 2-12 grossly intact, deep tendon reflexes 2+ symmetrical, motor strength normal upper and lower extremities, sensory exam intact.?PSYCH:?alert, oriented, alert, oriented, cognitive function intact, good eye contact, mood/affect full range, speech clear, thought process logical, goal directed.? Assessment: * Assessment: 1.?COPD (chronic obstructive pulmonary disease) - J44.9 (Primary)???Notes :His breathing is unlabored and unrestricted. He has not smoked in a prolonged time. He is doing very well with respiration.???2.?Depression - F32.9???Notes :His depression was very minimal today. He continued on current therapy.???3.?GERD (gastroesophageal reflux disease) - K21.9???Notes :His reflux symptoms are well controlled with medication. He is sleeping through the night usually. No change in his medication was necessary???4.?Mixed hyperlipidemia - E78.2???Notes :His lipid values have been in the normal range.. We discussed diet and nutrition and the elements of a low animal fat diet today. Comprehensive blood work with a fasting lipid profile has been ordered???5.?Lumbosacral radiculopathy - M54.17???Notes :The low back pain has now completely resolved and he is comfortable.???6.?Former smoker - Z87.891???Notes :He seems highly motivated not to smoke. His COPD has improved. He has a strategy to prevent relapse in times of stress and illness.???7.?Cervical radiculopathy - M54.12???Notes :He has no residual pain in his neck and the strength in his left arm is now back to normal.??? Plan: * Treatment: 2.?Others? Start EPINEPHrine Solution Auto-injector, 0.15 MG/0.3ML, use one pen, Injection, for a bee sting, 1 days, 1 Kit, Refills 6.?? * Labs:? * ?Lab: PROFILE, FASTING ( COMPREHENSIVE METABOLIC) ?Lab: PSA, TOTAL ?Lab: CBC WITH AUTO DIFF ?Lab: Lipid Panel * Procedure Codes:? * Preventive Medicine:? ??Counseling:?Smoking/Tobacco Use?Patient counseled on the dangers of tobacco use and urged to quit.?03/08/2024 * Follow Up:?4 Months, In four months (Reason: OV, Routine check-up) * Images: * Sign off status: Completed true * Provider:?Luiz Maguire MD Date:?02/24 Generated for Taco cavanaugh/Negrito/eTransmitting on:?06/19/2024 01:46 PM EST History and Physical Notes * HPI (History of Present Illness) Category Sub-Category Detail Notes Depression Screening PHQ-9 Little inte rest or pleasure in doing things: Not at all Feeling down, depressed, or hopeless: No t at all Trouble falling or staying asleep, or sl eeping too much: Not at all Feeling tired or having little energy: N ot at all Poor appetite or overeating: Not at all Feeling bad about yourself o r that you are a failure, or have let yourself or your family down: Not at all Trouble concentrating on thi ngs, such as reading the newspaper or watching television: Not at all Moving or speaking so slowly that other people could have noticed; or the opposite, being so fidgety or restless that you have been moving around a lot more than usual: Not at all Thoughts that you would be b magali off or of hurting yourself in some way: Not at all Total Score: 0 COVID-19 Screening Questions Have you had any new onset fever, chills, cough, congestion, sore throat, shortness of breath, muscle aches?: Yes 1 week Cough Have you been exposed to the virus withi n the last 10 days?: No Have you travelled internationally in e last 10 days?: No Have you been exposed to COVID-19 in the past?: No SDOH Questions SDOH Questions In the past year have you been worried about losing your housing?: No In the past year have you or any family members you live with been unable to get any of the following when it was really needed? Check all that apply:: None Examination Category Sub-Category Detail Notes General Examination GENERAL APPEARANCE: pleasant , well nourished, well developed, in no acute distress, calm and relaxed, man HEAD: atraumatic, normocep halic EYES: eomi, perrla, anicte machelle, conjugate EARS: normal NOSE: septum intact NECK/THYROID: no jugular venous di stention, no carotid bruit, thyroid normal HEART: no clicks, gallops, murmurs, or rubs, regular rhythm, S1, S2 normal, no s3, or vascular bruits LUNGS: , diminished breath sounds throughout, no wheezes, rales, rhonchi, good air movement ABDOMEN: bowel sounds normal, no ascites, no organomegaly, no mass NEUROLOGIC: alert and oriented, cranial nerves 2-12 grossly intact, deep tendon reflexes 2+ symmetrical, motor strength normal upper and lower extremities, sensory exam intact SKIN: no suspicious lesion s, anicteric PERIPHERAL PULSES: normal BREASTS: no masses palpable b ilaterally MUSCULOSKELETAL: no clubbing, cyanosi s or edema, Orthosis that spreads toes left foot, long vertical defect in the right femur at site of previous osteomyelitis, no discharge noted scar well healed LYMPH NODES: no enlarged lymph no cipriano,spleen normal RECTAL EXAM: not examined PSYCH: alert, oriented, christiano rt, oriented, cognitive function intact, good eye contact, mood/affect full range, speech clear, thought process logical, goal directed ORAL CAVITY: normal, unremarkable
--- OUTSIDE RECORDS SUMMARY | 2024-06-19 13:46 | XMS_ITS | Clinical Summary ---
Author Organization [address] [facility] Address [address] [place] [address] Phone Care Team Providers Care Plate Painter Apprentice Name Role Phone Luiz Maguire MD Primary Care Provider [phone] Allergies Active Allergy Reactions Criticality Noted Date Comments Scallops Anaphylaxis High 01/29/2011 Hydrocodone-Acetaminophen Sweating Medium 01/29/2011 Medications FOLIC ACID ORAL Take by mouth daily. - Oral Active L. acidophilus/L.bu lgaricus (LACTOBACILLUS ACIDOPH-L.BULGAR ORAL) Take by mouth daily. - Oral Active oxyCODONE-acetam inophen (PERCOCET) 5-325 mg per tablet Take 1 tablet by mouth every 6 hours as needed for Pain. - Oral Active atorvastatin (LIPITOR) 10 mg tablet Take 1 tablet (10 mg total) by mouth at bedtime. Active traZODone (DESYREL) 150 mg tablet Take 1 tablet (150 mg total) by mouth at bedtime. Active dexAMETHasone (DECADRON) 2 mg tablet Take 1 tablet (2 mg total) by mouth 2 (two) times a day with meals. Active Active Problems Problem Noted Date Diagnosed Date Right foot pain 03/02/2024 COPD (chronic obstructive pulmonary disease) 10/2023 Polysubstance abuse 03/02/2024 GERD (gastroesophageal reflux disease) Smoker 03/02/2024 Anxiety 03/02/2024 Umbilical hernia 03/02/2024 Lumbar radiculopathy 03/02/2024 Hearing loss of right ear 03/02/2024 Diverticulitis of colon 01/27/2024 Alcoholism 01/27/2024 Overview (01/27/2024): Alcoholism /alcohol abuse Resolved Problems Problem Noted Date Diagnosed Date Resolved Date Alcohol abuse counseling and surveillance of alcoholic 01/27/2024 01/27/2024 Social History Tobacco Use Types Packs/Day Years Used Date Smoking Tobacco: Never Assessed Sex and Gender Information Value Date Recorded Sex Assigned at Not on file Legal Sex Male 3:59 PM EST Gender Identity Not on file Sexual Orientation Not on file Last Filed Vital Signs Vital Sign Reading Time Taken Comments Blood Pressure - - Pulse - - Temperature - - Respiratory Rate - - Oxygen Saturation - - Inhaled Oxygen Concentration - - Weight 65.2 kg (143 lb 12.8 oz) 03/07/2024 2:06 PM EST Height 175.3 cm (5' 9 ) 03/07/2024 2:06 PM EST Body Mass Index 21.24 03/07/2024 2:06 PM EST Plan of Treatment Health Maintenance Due Date Last Done Comments DTaP,Tdap,and Td Vaccines (1 - Tdap) 02/25/1980 Pneumococcal Vaccine: 50+ Years (1 of 2 - PCV) 02/25/1980 Pneumococcal Vaccine: Pediatrics (0 to 5 Years) and At-Risk Patients (6 to 64 Years) (1 of 2 - PCV) 02/25/1980 Zoster Vaccines (1 of 2) 2011 RSV Immunization Patients 60+ Years Old (1 - Risk 60-74 years 1-dose series) 2021 COVID-19 Vaccine ( - season) 2023 03/16/2022, 04/03/2021, 09/16/2020, Additional history exists Influenza Vaccine (#1) 2023 3, 03/16/2022, 03/03/2021, Additional history exists Cholesterol Screening (Lipid Panel) 01/28/2024 Colorectal Cancer Screening: Colonoscopy 01/28/2024 Depression Screening 01/28/2024 HIV Screening 01/28/2024 Hepatitis C Screening 01/28/2024 Medicare Annual Wellness Visit 01/28/2024 Social Influencers of Health Screening 01/28/2024 HIB Vaccines Aged Out No longer eligi ble based on patient's age to complete this topic HPV Vaccines Aged Out No longer eligi ble based on patient's age to complete this topic Hepatitis A Vaccines Aged Out No long er eligible based on patient's age to complete this topic Hepatitis B Vaccines Aged Out No long er eligible based on patient's age to complete this topic IPV Vaccines Aged Out No longer eligi ble based on patient's age to complete this topic MMR Vaccines Aged Out No longer eligi ble based on patient's age to complete this topic Meningococcal ACWY Vaccine Aged Out N o longer eligible based on patient's age to complete this topic Meningococcal B Vacine Aged Out No lo nger eligible based on patient's age to complete this topic RSV Immunization Patients Under 20 months Aged Out No longer eligible based on patient's age to complete this topic Varicella Vaccines Aged Out No longer eligible based on patient's age to complete this topic Insurance MEDICARE Care Teams Plate Painter Apprentice Relationship Specialty Start Date End Date Luiz Maguire MD PCP - General Oncology 02/13/19
== END 2024-06-19 11:54 | disposition home or self-care (01) ==
LOC: HO.XRAY 11:53
PROVIDERS: PCP Internal Medicine Medical Oncology; Visit Provider Internal Medicine Medical Oncology
DX: R07.81 Pleurodynia (principal)
CPT/HCPCS: 71046

== ENCOUNTER → 2024-06-19 11:59 | Outpatient (BNV) | payer MEDICARE, SELFPAY | PROVIDERS: PCP Internal Medicine Medical Oncology; Visit Provider Radiology Diagnostic Radiology | DX: R07.1 Chest pain on breathing (principal) | CPT/HCPCS: 71046 ==

== ENCOUNTER 2024-06-27 10:28 | Outpatient (REF) | payer MEDICARE, MEDICAID, SELFPAY ==
[2024-06-27 11:02] LABS: MANUAL DIFF FLAG NO
[2024-06-27 11:52] LABS: Basophils Absolute Auto 0.1 X10*3/uL (0.0-0.2); Basophils Percent Auto 1.3 % (0-2); Eosinophils Absolute Auto 0.2 X10*3/uL (0.0-0.4); Eosinophils Percent Auto 4.4 % (0-4); Hematocrit 38.7 % (42.0-52.0); Hemoglobin 12.9 g/dl (14.0-18.0); Imm Gran Abs Auto 0.02 X10*3/uL (0.00-0.03); Imm Gran Pct Auto 0.4 % (0.0-0.4); Lymphocytes Absolute Auto 1.9 X10*3/uL (1.2-4.9); Lymphocytes Percent Auto 33.8 % (20-40); Mean Corpuscular HGB Conc 33.3 g/dl (31.0-36.0); Mean Corpuscular Hemoglobin 29.4 pg (27.0-33.0); Mean Corpuscular Volume 88.2 fL (80.0-98.0); Mean Platelet Volume 9.3 fL (9.4-12.4); Monocytes Absolute Auto 0.5 X10*3/uL (0.1-1.2); Neutrophils Absolute Auto 2.8 x10*3/uL (2.0-8.3); Neutrophils Percent Auto 51.1 % (45-73); Platelet Count 318 X10*3/uL (160-400); Red Blood Count 4.39 X10*6/uL (4.60-5.80); Red Cell Distribution Width 13.9 % (11.0-16.0); White Blood Count 5.5 X10*3/uL (4.8-10.8)
[2024-06-27 11:57] LABS: D Dimer High Sensitivity 205 NG/ML
[2024-06-27 12:28] LABS: Alanine Aminotransferase 20 U/L (0-40); Albumin Level 4.5 g/dL (3.5-5.0); Alkaline Phosphatase 56 U/L (39-117); Anion Gap 11 (12-20); Aspartate Amino Transferase 22 U/L (5-37); Bilirubin Total 0.4 mg/dL (0.0-1.0); Blood Urea Nitrogen 18 mg/dL (9-16); Calcium 9.9 mg/dL (8.4-10.2); Carbon Dioxide 29 mmol/L (22-29); Chloride 109 mmol/L (96-108); Cholesterol 220 mg/dL (<200); Estimated Glomerular Filt Rate > 60; Glucose Fasting 94 mg/dL (60-99); HDL Cholesterol 74 mg/dL (>40); LDL Cholesterol Calculated 135 mg/dL (<100); Potassium 5.7 mmol/L (3.3-5.1); Sodium 143 mmol/L (135-145); Total Protein 7.5 g/dL (6.5-8.0); Triglycerides 57 mg/dL (<150)
[2024-06-27 12:38] LABS: Lactate Dehydrogenase 162 U/L (118-273)
[2024-06-27 12:40] LABS: Erythrocyte Sedimentation Rate 6 MM/HR (0-15)
[2024-06-27 12:47] LABS: Prostate Specific Antigen 1.49 ng/mL (<0.05-4.0)
--- OUTSIDE RECORDS SUMMARY | 2024-06-27 12:52 | XMS_ITS | Clinical Summary ---
Author Organization [address] [facility] Address [address] [place] [address] Phone Care Team Providers Care Business Intelligence Analyst Name Role Phone Luiz Maguire MD Primary Care Provider [phone] Allergies Active Allergy Reactions Criticality Noted Date [...] complete this topic Insurance MEDICARE Care Teams Business Intelligence Analyst Relationship Specialty Start Date End Date Luiz Maguire MD PCP - General Oncology 02/13/19
== END 2024-06-27 10:29 | disposition home or self-care (01) ==
LOC: HO.LAB 10:28
PROVIDERS: PCP Internal Medicine Medical Oncology; Visit Provider Internal Medicine Medical Oncology
DX: J44.9 Chronic obstructive pulmonary disease, unspecified (principal); E78.2 Mixed hyperlipidemia; F06.8 Other specified mental disorders due to known physiological condition; Z12.5 Encounter for screening for malignant neoplasm of prostate
CPT/HCPCS: 36415; 80053; 80061; 83615; 84153; 85025; 85379; 85652

== ENCOUNTER 2024-07-22 09:34 | Outpatient (REF) | payer MEDICARE, MEDICAID, SELFPAY ==
--- NOTE | ~2024-07-22 | MR_ITS ---
EXAMINATION: MR CERVICAL SPINE WITHOUT CONTRAST CLINICAL INFORMATION: Nerve. COMPARISON: March 14, 2020 demonstrated central spinal canal stenosis at C4-5 and C5-6 levels with neuroforamina stenosis C3 C7. TECHNIQUE: MRI of the cervical spine was obtained using routine sequences without contrast. FINDINGS: Bone marrow inhomogeneity. Bone marrow STIR signal abnormality at C6 and to a lesser extent superior endplate of C7. Multilevel marginal osteophyte formation and disc desiccation C3 T3. Hypointense T1 and T2 bone marrow signal at C6 and T3. Grade 1 retrolisthesis C3-4, C5-6 and C6-7 levels. Grade 1 anterolisthesis, C4-5 and C7-T1. Cervical spinal cord signal is normal. Craniocervical junction is intact. C2-3: Broad-based disc osteophyte complex formation. No cord compression. No neuroforamina stenosis. C3-4: Disc osteophyte compresses formation resulting in ventral thecal sac deformity. Bilateral neuroforamina narrowing on a degenerative basis. No cord compression. C4-5: Disc osteophyte compresses formation resulting in ventral thecal sac deformity. No cord compression. Left neuroforamina stenosis on a degenerative basis. C5-6: Disc osteophyte complex formation resulting in ventral deformity of the thecal sac. No cord compression. Bilateral neuroforamina stenosis on a degenerative basis. C6-7: Disc osteophyte complex formation resulting in ventral thecal sac deformity. No cord compression. Bilateral neuroforamina stenosis. C7-T1: No disc herniation. No gross neuroforamina stenosis. No prevertebral compartment hematoma, mass or fluid collection. Flow void signal within the main vessels is normal. Codominant vertebral arteries. MR/MR cervical spine wo con IMPRESSION: Multilevel cervical spondylosis C2 C7 resulting in central spinal canal stenosis, C3-4 C4-5 and C6-7 and bilateral neuroforamina stenosis more conspicuous on the left side from C3 to C3 C6-7. No cord edema and or myelopathy. Abnormal bone marrow suggesting calcium metabolic disorder versus lymphoproliferative disorders. Multiple myeloma cannot be entirely excluded. Electronically signed by: Jovanny Perry MD 07/24/2024 08:46 AM EDT
== END 2024-07-22 09:35 | disposition home or self-care (01) ==
LOC: HO.MRI 09:34
PROVIDERS: PCP Internal Medicine Medical Oncology; Visit Provider Internal Medicine Medical Oncology
DX: M54.2 Cervicalgia (principal); M54.12 Radiculopathy, cervical region
CPT/HCPCS: 72141

== ENCOUNTER → 2024-07-22 09:50 | Outpatient (BNV) | payer MEDICARE, MEDICAID, SELFPAY | PROVIDERS: PCP Internal Medicine Medical Oncology; Visit Provider Radiology Diagnostic Radiology | DX: M47.812 Spondylosis without myelopathy or radiculopathy, cervical region (principal); M99.61 Osseous and subluxation stenosis of intervertebral foramina of cervical region | CPT/HCPCS: 72141 ==

== ENCOUNTER 2024-08-25 11:54 | Outpatient (AMB) | payer MEDICARE, MEDICAID, SELFPAY ==
--- NOTE | 2024-08-25 11:57 | MHC.OFFVIS ---
Vital Signs 08/25/24 11:58 Height 5 ft 8 in Weight 147 lb BMI 22.3 BP 120/67 Blood Pressure Location Lt brachial Position Sitting Respiration 16 Pulse 64 Pulse Source Pulse Oximeter Pulse Oximetry (%) 97 Oxygen Delivery Method Room Air Intake Visit Reasons: Cervical Radiculopathy Air Pollution Auditor Required: No Allergies bee pollen [bee stings] Allergy (Severe, Verified 08/25/24 11:59) Anaphylaxis scallops Allergy (Severe, Verified 08/25/24 11:59) ANAPHYLAXIS hydrocodone [From VICODIN] Allergy (Intermediate, Verified 08/25/24 11:59) ITCHING,THROAT SWELLS Medication List - Last Reconciled 08/25/24 by Bethany Barajas LPN albuterol sulfate 90 mcg/actuation 90 mcg inhalation Q4-6H PRN atorvastatin 10 mg PO DAILY epinephrine 0.15 mg IM ONCE PRN gabapentin 300 mg PO TID trazodone 150 mg PO BEDTIME HPI HPI Cervical Radiculopathy: Details: History of Present Illness The patient is a 64-year-old male presenting with cervical radiculopathy. Chronic discomfort persists, with a history of an unsuccessful sacroiliac spine injection in 2021. Recent imaging from June 2024 confirms multilevel degenerative disc disease and neuroforaminal stenosis, notably affecting cervical regions of the left side. Manifestations include left-sided neck pain extending to the arm with accompanying paresthesia. Notably, his physical activities remain regular despite disability from a drop foot. The patient's daily regimen consists of exercises mainly for lower back maintenance, lacking structured physical therapy elsewhere. He previously received a cervical injection, reporting suboptimal results, and now explores alternative pain alleviations such as cervical support mechanisms. Additionally, the patient reports engaging in painting despite functional limitations and considers integrating physical therapy therapies into routine, motivated by potential improvements indicated in his recent MRI findings. Pain Description - Pain onset: Chronic, with significant exacerbation noted over years. - Quality: Described as radiating down the arm, causing numbness and tingling. - Primary location: Left side of the neck extending to the left arm. - Radiation: To the left arm and includes numbness and tingling in the fingers. - Aggravating factors: Activity, certain positions. - Relieving factors: None mentioned specifically beyond cessation of intense activities. - Activities impacted: Regular household activities like painting are impacted, though patient continues them. Physical Exam - Appears afebrile. - Alert and oriented. - Mood and affect appropriate. - Follows and participates in conversation appropriately. - Respiratory effort is unlabored. - Able to transition from sit to stand unassisted. - Ambulates with bilaterally normal heel strike and toe off. - Able to stand and walk on toes and heels. Results - Imaging: MRI (June 2024), showing multilevel degenerative disc disease without central cord compression and mild to moderate neuroforaminal stenosis. Pain Management - Affect: Chronic pain impacting daily activities but not specifically noted to affect mood. - Analgesia: Prior unsuccessful cervical injections noted; non-medication approaches (e.g., exercises, traction) proposed. - Adverse Effects: None reported from current or past interventions. - Activities of Daily Living: Pain participates in restricting some activities, yet the patient remained active with limitations. - Aberrant Drug Related Behaviors: None reported or observed. [facility] Medical History History of osteomyelitis Umbilical hernia GERD (gastroesophageal reflux disease) Gastritis History of hyperbaric oxygen therapy COVID-19 vaccine series completed Herniated cervical disc Fatty liver COPD (chronic obstructive pulmonary disease) Elevated cholesterol Surgical History History of right cataract extraction History of esophagogastroduodenoscopy (EGD) History of surgery on extremity Hx of colonoscopy Family History Mother Lung cancer Brother Lung cancer Brain cancer Brother Lung cancer Social History Are you a primary complex care nurse practitioner to a significant other at home: No Do you presently have visiting nurse or other home services: No Patient Tobacco Use Status: Former Tobacco user Tobacco use type: Cigarette Years Smoked: 40 Current occupational status: disabled Physical Exam Vital Signs: Last Vital Signs Pulse 64 08/25/24 11:58 Resp 16 08/25/24 11:58 BP 120/67 08/25/24 11:58 Pulse Ox 97 08/25/24 11:58 Oxygen Delivery Method Room Air 08/25/24 11:58 BMI result Body Mass Index 22.3 Assessment & Plan Assessment & Plan (1) Cervical radiculopathy: Code(s): M54.12 - Radiculopathy, cervical region Category: Medical Plan Plan - Start physical therapy focusing on cervical spine exercises, enabling the patient to practice these at home. - Advise on using pillows with neck support features for improved posture during sleep. - Establish a program emphasizing cervical traction if beneficial. - Monitor patient's response to physical therapy and adjust pain relief strategies as necessary. - Discuss home-based stretching techniques to maintain cervical stability. Patient was informed and verbally consented to the use of an ambient scribe for clinic note documentation during this visit. Discussion Notes I discussed with the patient the primary diagnosis of cervical radiculopathy. We reviewed available management options focusing on non-invasive interventions, particularly the advantages of participating in physical therapy and use of adaptations such as cervical pillows and traction. Risks associated with other treatments like injections, which previously proved unhelpful, were also mentioned. The anticipated improvement through structured exercise routines was emphasized, and the patient expressed understanding and agreement with the outlined plan. Consent to start physical therapy and consider adaptive sleeping arrangements was obtained, considering continued monitoring of progress. Patient Instructions - Begin physical therapy exercises for the cervical spine as instructed. - Use recommended pillows to keep your neck in proper alignment while sleeping. - Consider utilizing cervical traction under guidance. - Maintain a routine of home-based exercises to support overall neck health. - Contact the physical therapy office in [place] directly for scheduling. - Seek medical attention if symptoms significantly worsen or do not improve. Orders: Orders PT Evaluation and Treatment 08/25/24 M54.12 - Radiculopathy, cervical region Coding Level of Care Code New Pt Level 4 (47444) Diagnoses Cervical radiculopathy M54.12
[2024-08-25 11:58] VITALS: BP 120/67; PULSE 64; RESP 16; O2SAT 97; BMI 22.3
--- OUTSIDE RECORDS SUMMARY | 2024-08-25 12:45 | XMS_ITS ---
Author Organization Luiz Maguire III, MD Address [address] [place] [address] [place] [address] Care Team Providers Care Presser First Name Role Phone Luiz Maguire Primary Care [...] HCl 150 MG TAKE 1 TABLET BY [facility] EVERYDAY AT BEDTIME Active Social History Tobacco [...] Date Provider Diagnosis Luiz Maguire III, MD [address] [place] [address] [place] [address] 08/18/2024 Luiz Maguire COPD (chronic obstructive pulmonary [...] HCl 150 MG TAKE 1 TABLET BY [facility] EVERYDAY AT BEDTIME Next Appt Details Follow Up: 2 Months, Reason: OV Provider Name:Luiz Maguire, 10/18/2024 03:00:00 PM, [address] [place] [address] [address], [place], [address], Provider Name:Luiz Maguire, 03/13/2025 02:00:00 PM, [address] [place] [address] [address], [place], [address], Progress Notes * Aakash CORONADODOB:1959 (64 yo M)Acc No.[id number]:08/18/2024 Progress Notes Patient:?Aakash CORONADO Provider:?Luiz Maguire MD :1960???Age:64 Y???Sex:Male Luis Fernando e:08/18/2024 Address:[address] [place], [id number] Subjective: * Chief Complaints: * ???Left shoulder painCOPDLum bar radiculopathyHyperlipidemiaGERDBenign prostatic hypertrophyBilateral hearing loss * HPI: ???COVID-19 Screening:? He returns for management of his medical issues.? His chief complaint lately has been left shoulder pain.? He has been referred to pain management for injections.? Pain is slightly better at this time.? He has no new complaints.? He is comfortable breathing room air and has had no exacerbations of COPD.? His hearing loss is unchanged.? He has no new skin lesions.? He has occasional pain in his cervical spine and lumbar spine with motion.The MRI of his cervical spine that was done in June 2024 showed multilevel cervical spondylosis causing stenosis of the spinal canal from C2-C7.? There was bilateral neuroforaminal stenosis at C3 him primarily at C6-7.? His complaints of pain are left axilla and left shoulder.? He has yet to see pain management but that vissit his upcoming. The radiologist commented on an abnormal appearance of the bone marrow in the neck.? Peripheral blood counts are unremarkable as are his chemistries.? Will be observed for any possible hematologic abnormality developing. ?Questions?Have you had any new onset fever, chills, cough, congestion, sore throat, shortness of breath, muscle aches??No * ROS:?General/Constitutional:?pain?Left shoulder and left axilla with range of motion of the shoulder and neck, low back pain.?Chills?denies.?Fatigue?admits.?Fever?denies.?ENT:?Decreased hearing?in both ears.?Respiratory:?Cough?denies.?Cardiovascular:?Chest pain with exertion?denies.?Dyspnea on exertion?denies.?Shortness of breath?denies.?Gastrointestinal:?Constipation?occasional.?Decreased appetite?denies.?Diarrhea?denies.?Heartburn?denies.?Nausea?denies.?Rectal bleeding?denies.?Vomiting?denies.?Hematology:?bruising?denies.?petechiae?denies.?Swollen glands?none have been noted.?Genitourinary:?Frequent urination?once a night.?Musculoskeletal:?Muscle aches?denies.?Painful joints?denies.?Sciatica?denies.?Weakness?denies.?Skin:?Itching?denies.?Rash?denies.?Skin lesion(s)?denies.?Neurologic:?Difficulty speaking?denies.?Dizziness?denies.?Headache?denies.?Low back pain?that is chronic.?Psychiatric:?Depressed mood?denies.? * Medical History:? * Surgical History:?umbilical herniorrhaphy 2011compound fracture right femur, skin graft [...] He has no toxic exposures. He enjoys [employer], football. [employer], cribbage. He was born in [place], [place]. * Medications:?TakingEPINEPHri ne 0.15 MG/0.3ML Solution Auto-injector use one pen [...] 10/18/2019no[Allergies Verified] Objective: * Vitals:?Ht: 69, Wt: 146, BMI :21.56, BP: 128/74, HR: 66, Temp: 97.6, Ht-cm: 175.26, Wt-k.22. * ???Past Orders: ???Imaging:XR chest 2V (Orde r Date - 06/19/2024) (Performed Date - 06/19/2024) Lab:Complete Blood Count Aut o Diff * Collection Date 06/27/2024 02/18/2023 03/31/2022 Collection Time 11:01 AM 02:20 PM 01:55 PM Order Date 06/27/2024 02/18/2023 03/31/2022 White Blood Count 5.5 (Ref Range: 4.8-10.8 X10*3/uL) 10.4 (Ref Range: 4.8-10.8 X10*3/uL) 9.5 (Ref Range: 4.8-10.8 X10*3/uL) Red Blood Count 4.39?L (Ref Range: 4.60-5.80 X10*6/uL) 3.93?L (Ref Range: 4.60-5.80 X10*6/uL) 3.87?L (Ref Range: 4.60-5.80 X10*6/uL) Hemoglobin 12.9?L (Ref Range: 14.0-18.0 g/dl) 11.7?L (Ref Range: 14.0-18.0 g/dl) 11.5?L (Ref Range: 14.0-18.0 g/dl) Hematocrit 38.7?L (Ref Range: 42.0-52.0 %) 34.8?L (Ref Range: 42.0-52.0 %) 34.6?L (Ref Range: 42.0-52.0 %) Mean Corpuscular Volume [...] (Ref Range: 160-400 X10*3/uL) Mean Platelet Volume 9.3?L (Ref Range: 9.4-12.4 fL) 9.0?L (Ref Range: 9.4-12.4 fL) 9.6 (Ref Range: [...] (Ref Range: 2-11 %) Eosinophils Percent Auto 4.4?H (Ref Range: 0-4 %) 2.0 (Ref Range: 0-4 %) 4.1?H (Ref Range: 0-4 %) Basophils Percent Auto [...] 03/31/2022 Triglycerides 57 (Ref Range: <150 mg/dL) 220?H (Ref Range: <150 mg/dL) 157 (Ref Range: mg/dL) Cholesterol 220?H (Ref Range: <200 mg/dL) 196 (Ref Range: <200 mg/dL) 212 (Ref Range: mg/dL) LDL Cholesterol Calculated 135?H (Ref Range: <100 mg/dL) 110?H (Ref Range: <100 mg/dL) 137 (Ref Range: mg/dl) HDL Cholesterol 74 (Ref Range: >40 mg/dL) 42 (Ref Range: >40 mg/dL) 44 (Ref Range: mg/dL) ???Lab:Lactate Dehydrogenase (Order Date - 06/27/2024) (Collection Date & Time - 06/27/2024 11:01 AM)?ValueReference Range?Lactate Qpgzgpznuosby090 118-273 - U/L * Lab:[facility] [place]. Pane l Fast * Collection Date 06/27/2024 02/18/2023 [...] U/L) 56 (Ref Range: 39-117 U/L) Potassium 5.7?H (Ref Range: 3.3-5.1 mmol/L) 4.4 (Ref Range: 3.3-5.1 mmol/L) 4.6 (Ref Range: 3.3-5.1 mmol/L) Chloride 109?H (Ref Range: 96-108 mmol/L) 105 (Ref Range: 96-108 mmol/L) 105 (Ref Range: 96-108 mmol/L) Carbon Dioxide 29 (Ref Range: 22-29 mmol/L) 27 (Ref Range: 22-29 mmol/L) 28 (Ref Range: 22-29 mmol/L) Anion Gap 11?L (Ref Range: 12-20) 13 (Ref Range: 12-20) 13 (Ref Range: 12-20) Blood Urea Nitrogen 18?H (Ref Range: 9-16 mg/dL) 10 (Ref Range: 9-16 mg/dL) 13 (Ref Range: 9-16 mg/dL) Creatinine 0.90 (Ref Range: 0.5-1.4 mg/dL) 0.86 (Ref Range: 0.5-1.4 mg/dL) 0.87 (Ref Range: 0.5-1.4 mg/dL) Estimated Glomerular Filt Rate > 60 > 60 > 60 Glucose Fasting 94 (Ref Range: 60-99 mg/dL) 100?H (Ref Range: 60-99 mg/dL) 71 (Ref Range: [...] - 06/27/2024 11:01 AM)?ValueReference Range?D Dimer High Fpiiyjytytw902- NG/ML * Examination: ???General Examination: ?GENERAL APPEARANCE:?pleasant, well nourished, well developed, in no acute distress, calm and relaxed, man.?HEAD:?atraumatic, normocephalic.?EYES:?eomi, perrla, anicteric, conjugate.?EARS:?normal.?NOSE:?septum intact.?ORAL CAVITY:?normal, unremarkable.?NECK/THYROID:?no jugular venous distention, no carotid bruit, thyroid normal, [place] range of motion which radiates into the shoulder left axilla and upper left thoracic wall.?LYMPH NODES:?no enlarged lymph nodes,spleen normal.?SKIN:?no suspicious lesions, anicteric.?HEART:?no clicks, gallops, murmurs, or rubs, regular rhythm, S1, S2 normal, no s3, or vascular bruits.?LUNGS:?clear to auscultation .?BREASTS:??no masses palpable bilaterally.?ABDOMEN:?bowel sounds normal, no ascites, no organomegaly, no mass.?RECTAL EXAM:?not examined.?MUSCULOSKELETAL:?extremities unremarkable, no clubbing, cyanosis or edema, [place] range of motion of neck and lumbar spine, surgical defect right tibia.?PERIPHERAL PULSES:?normal.?NEUROLOGIC:?alert and oriented, cranial nerves 2-12 grossly intact, deep tendon reflexes 2+ symmetrical, motor strength normal upper and lower extremities, sensory exam intact.?PSYCH:?alert, oriented.? Assessment: * Assessment: 1.?Cervical radiculopathy - M54.12 (Primary)???Notes :He is waiting to see paain management for injections.? This is unsuccessful I will see about a neurosurgical consultation.? His symptoms are significant at this time but not life-threatening.???2.?COPD (chronic obstructive pulmonary disease) - J44.9???Notes :His breathing is unlabored and unrestricted. He has not smoked in a prolonged time. He is doing very well with respiration.???3.?GERD (gastroesophageal reflux disease) - K21.9???Notes :His reflux symptoms are well controlled with medication. He is sleeping through the night usually. No change in his medication was necessary???4.?Former smoker - Z87.891???Notes :He seems highly motivated not to smoke. His COPD has improved. He has a strategy to prevent relapse in times of stress and illness.???5.?BPH (benign prostatic hyperplasia) - N40.0???Notes :He rises from sleep once a night to urinate. We have discussed lifestyle modification as a way to reduce nocturia.???6.?Subacute osteomyelitis of right tibia - M86.261???Notes :The drainage is minimal. He will continue with current therapy and will be observed. The wound care clinic has been involved.???7.?Bilateral hearing loss, unspecified hearing loss type - H91.93???Notes :He reports no change in his hearing.??? Plan: * Treatment: 2.?Others? Continue EPINEPHrine Solution Auto-injector, 0.15 MG/0.3ML, use one pen, Injection, for a bee sting.?? * Procedure Codes:? * Preventive Medicine:? ??Counseling:?Smoking/Tobacco Use?Patient counseled on the dangers of tobacco use and urged to quit.?08/18/2024 * Follow Up:?2 Months (Reason: OV) * Images: * Sign off status: Completed true * Provider:?Luiz Maguire MD Date:?07/26 Generated for Yomii mao/Negrito/eTransmitting on:?08/25/2024 12:45 PM EDT History and Physical Notes * HPI (History [...] di stention, no carotid bruit, thyroid normal, [place] range of motion which radiates into the [...] unremark able, no clubbing, cyanosis or edema, [place] range of motion of neck and lumbar spine, surgical defect right tibia LYMPH NODES: no enlarged lymph no cipriano,spleen normal RECTAL EXAM: not examined PSYCH: alert, oriented ORAL CAVITY: normal, unremarkable
--- OUTSIDE RECORDS SUMMARY | 2024-08-25 12:45 | XMS_ITS ---
Author Organization Luiz Maguire III, MD Address [address] [place] [address] [place] [address] Care Team Providers Care Orthotic Assistant Name Role Phone Luiz Maguire Primary Care Provider [phone] Allergies Allergen (clinical drug ingredient) Drug/Non Drug [...] HCl 150 MG TAKE 1 TABLET BY [facility] EVERYDAY AT BEDTIME Active EPINEPHrine 0.15 MG/0.3ML [...] Date Provider Diagnosis Luiz Maguire III, MD [address] [place] [address] [place] [address] 07/21/2024 Luiz Maguire COPD (chronic obstructive pulmonary [...] HCl 150 MG TAKE 1 TABLET BY [facility] EVERYDAY AT BEDTIME EPINEPHrine 0.15 MG/0.3ML use one pen In jection for a bee sting 03/08/2024 Next Appt Details Follow Up: 2 Weeks, Reason: OV Provider Name:Luiz Maguire, 10/18/2024 03:00:00 PM, [address] [place] [address] [address], [place], [address], Provider Name:Luiz Maguire, 03/13/2025 02:00:00 PM, [address] [place] [address] [address], [place], [address], Progress Notes * Danna CORONADO:1959 (64 yo M)Acc No.[id number]:07/21/2024 Progress Notes Patient:Aakash WRIGHT Provider:?Luiz Maguire MD :1960???Age:64 Y???Sex:Male Luis Fernando e:07/21/2024 Address:[address] [place] [address] [address], [id number] Subjective: * Chief Complaints: * ???Left shoulder/axillary pa inCervical radiculopathyGERDHistory of depressionHyperlipidemiaLumbar radiculopathyCOPDHearing lossBenign prostatic hypertrophy * HPI: ???COVID-19 Screening:? He has recently had a flareup of cervical radiculopathy with pain in the left shoulder and axilla.? He reports today that the neck pain is much improved but the pain in the left axilla and upper left chest wall is unchanged.? He has been able to conduct all of the activities of daily life.? He has been compliant with all of his medications.? He has no new complaints.? He is breathing comfortably.? Respiratory effort does not affect the pain. ?Questions?Have you had any new onset fever, chills, cough, congestion, sore throat, shortness of breath, muscle aches??No * ROS:?General/Constitutional:?pain?Left shoulder, neck, and axilla, otherwise only normal aches and pains.?Chills?denies.?Fatigue?admits.?Fever?denies.?ENT:?Decreased hearing?denies.?Respiratory:?Cough?denies.?Cardiovascular:?Chest pain with exertion?denies.?Dyspnea on exertion?denies.?Shortness of breath?with exertion.?Gastrointestinal:?Constipation?occasional.?Decreased appetite?denies.?Diarrhea?denies.?Heartburn?denies.?Nausea?denies.?Rectal bleeding?denies.?Vomiting?denies.?Hematology:?bruising?denies.?petechiae?denies.?Swollen glands?none have been noted.?Genitourinary:?Frequent urination?denies.?Musculoskeletal:?Muscle aches?denies.?Painful joints?Left shoulder.?Sciatica?denies.?Weakness?denies.?Skin:?Itching?denies.?Rash?denies.?Skin lesion(s)?denies.?Neurologic:?Difficulty speaking?denies.?Dizziness?denies.?Headache?denies.?Low back pain?denies.?Psychiatric:?Depressed mood?denies.? * Medical [...] He has no toxic exposures. He enjoys [employer], football. [employer], [employer]. He was born in [place], [place]. * Medications:?TakingEPINEPHri ne 0.15 MG/0.3ML Solution [...] 10/18/2019no[Allergies Verified] Objective: * Vitals:?Ht: 69, Wt: 149, BMI :22, BP: 109/56, HR: 57, Temp: 97.5, Ht-cm: 175.26, Wt-k.59. * ???Past Orders: ???Imaging:XR chest 2V (Orde r Date - 06/19/2024) (Performed Date - 06/19/2024) Lab:Complete Blood Count Aut o Diff * Collection Date 06/27/2024 02/18/202303/3103/31/2022 Collection Time 11:01 AM 02:20 PM 01:55 [...] & Time - 06/27/2024 11:01 AM)?ValueReference Range?Lactate Vrunymblaagjo220 118-273 - U/L * Lab:[facility]prehensive [place]. Pane l Fast * Collection Date 06/27/2024 [...] - 06/27/2024 11:01 AM)?ValueReference Range?D Dimer High Boytyenexds662- NG/ML * Examination: ???General Examination: ?GENERAL APPEARANCE:?pleasant, well nourished, well developed, in no acute distress, calm and relaxed, man.?HEAD:?atraumatic, normocephalic.?EYES:?eomi, perrla, anicteric, conjugate.?EARS:?normal.?NOSE:?septum intact.?ORAL CAVITY:?normal, unremarkable.?NECK/THYROID:?no jugular venous distention, no carotid bruit, thyroid normal, Pain to range of motion of neck that radiates to left shoulder, improving.?LYMPH NODES:?no enlarged lymph nodes,spleen normal.?SKIN:?no suspicious lesions, anicteric.?HEART:?no clicks, gallops, murmurs, or rubs, regular rhythm, S1, S2 normal, no s3, or vascular bruits.?LUNGS:?clear to auscultation .?BREASTS:??no masses palpable bilaterally.?ABDOMEN:?bowel sounds normal, no ascites, no organomegaly, no mass.?RECTAL EXAM:?not examined.?MUSCULOSKELETAL:?extremities unremarkable, no clubbing, cyanosis or edema, Old vertical scar right leg below knee.?PERIPHERAL PULSES:?normal.?NEUROLOGIC:?alert and oriented, cranial nerves 2-12 grossly intact, deep tendon reflexes 2+ symmetrical, motor strength normal upper and lower extremities, sensory exam intact.?PSYCH:?alert, oriented.? Assessment: * Assessment: 1.?Cervical radiculopathy - M54.12 (Primary)???Notes :The neck pain is generally improving.? Continues to feel pain on the upper thoracic portion of his axilla and the left shoulder current therapy was continued.???2.?COPD (chronic obstructive pulmonary disease) - J44.9???Notes :His breathing is unlabored and unrestricted. He has not smoked in a prolonged time. He is doing very well with respiration.???3.?Former smoker - Z87.891???Notes :He seems highly motivated not to smoke. His COPD has improved. He has a strategy to prevent relapse in times of stress and illness.???4.?BPH (benign prostatic hyperplasia) - N40.0???Notes :He rises from sleep once a night to urinate. We have discussed lifestyle modification as a way to reduce nocturia.???5.?Lumbosacral radiculopathy - M54.17???Notes :Low back pain is now minimal.? He is avoiding heavy lifting and undue exertion.???6.?Mixed hyperlipidemia - E78.2???Notes :His lipid values have been in the normal range.. We discussed diet and nutrition and the elements of a low animal fat diet today. Comprehensive blood work with a fasting lipid profile has been ordered???7.?Depression - F32.9???Notes :His depression was very minimal today. He continued on current therapy.??? Plan: * Treatment: 2.?Others? Continue EPINEPHrine Solution Auto-injector, 0.15 MG/0.3ML, use one pen, Injection, for a bee sting.?? * Procedure Codes:? * Preventive Medicine:? ??Counseling:?Smoking/Tobacco Use?Patient counseled on the dangers of tobacco use and urged to quit.?07/21/2024 ??COPD Care Plan:?Patient Lifestyle Goals?Be able to be more active with friends and family, Reduce number of ED and hospitalizations, Relieve symptoms and improve quality of life.?Treatment Goals?Exercise to help whole body, including lungs.?Barriers?no barriers.?Self-Managment Goals?Get an air purifier for the rooms you are in the most, Eat a healthy diet.? * Follow Up:?2 Weeks (Reason: OV) * Images: * Sign off status: Completed true * Provider:?Luiz Maguire MD Date:?06/25 Generated for Taco cavanaugh/Negrito/Teenaitting on:?08/25/2024 12:45 PM EDT History and Physical [...]
--- OUTSIDE RECORDS SUMMARY | 2024-08-25 12:45 | XMS_ITS | Clinical Summary ---
Author Organization [facility] Address [address] [place] [address] Phone Care Team Providers Care Service Order Taker Name Role Phone Luiz Maguire MD Primary Care Provider [phone] Allergies Active Allergy Reactions Criticality Noted Date [...] Right foot pain 03/02/2024 COPD (chronic obstructive pu lmonary disease) ([facility] V24, [facility] V28) 03/02/2024 Polysubstance abuse ([facility] V24, [facility] V28) 1 05/02/2023 GERD (gastroesophageal reflux disease) Smoker 03/02/2024 Anxiety 03/02/2024 Umbilical hernia 03/02/2024 Lumbar radiculopathy 03/02/2024 Hearing loss of right ear 03/02/2024 Diverticulitis of colon 01/27/2024 Alcoholism ([facility] V24, [facility] V28) 01/27/2024 Overview (01/27/2024): Alcoholism /alcohol abuse Resolved [...] DTaP,Tdap,and Td Vaccines (1 - Tdap) 02/25/1980 Hepatitis A Vaccines (1 of 2 - Risk 2-dose series) 02/25/1980 Pneumococcal Vaccine: 50+ Years (1 of 2 - PCV) 02/25/1980 Pneumococcal Vaccine: Pediatrics (0 to 5 Years) and At-Risk Patients (6 to 64 Years) (1 of 2 - PCV) 02/25/1980 Zoster Vaccines (1 of 2) 2011 RSV Immunization Adult Patients (1 - Risk 60-74 years 1-dose series) 2021 COVID-19 Vaccine ( season) 2023 03/16/2022, 04/03/2021, 09/16/2020, Additional history exists Cholesterol Screening (Lipid Panel) 01/28/2024 Colorectal Cancer Screening: Colonoscopy 01/28/2024 Depression Screening 01/28/2024 HIV Screening 01/28/2024 Hepatitis C Screening 01/28/2024 Medicare Annual Wellness Visit 01/28/2024 Social Influencers of Health Screening 01/28/2024 Influenza Vaccine (Season Ended) 2024 02/18/2023, 03/16/2022, 03/03/2021, Additional history exists HIB Vaccines Aged Out No longer eligi [...] age to complete this topic Meningococcal B Vaccine Aged Out No l onger eligible based on patient's age to complete this topic RSV Immunization Patients Under 20 months Aged Out No longer eligible based on patient's age to complete this topic Varicella Vaccines Aged Out No longer eligible based on patient's age to complete this topic Insurance MEDICARE Care Teams Service Order Taker Relationship Specialty Start Date End Date Luiz Maguire MD PCP - General Oncology 02/13/19
--- OUTSIDE RECORDS SUMMARY | 2024-08-25 12:45 | XMS_ITS | Patient Health Record ---
Author Organization Luiz Maguire III, MD Address [address] [place] [address] [place] [address] Care Team Providers Care Account Receivable Clerk Name Role Phone Luiz Maguire Primary Care Provider [phone] Allergies Allergen (clinical drug ingredient) Drug/Non Drug Allergy documented on EMR Reaction Allergy Type Onset Date Status Bee Sting anaphylaxis Allergy 10/18/2019 Active Vicodin Unknown Drug Allergy Active Shellfish (FN) scallops (uncoded) Unknown Allergy Active Results Component Value Reference Range Notes XR foot LT min 3V Reviewed date:02/28/2024 05:52:18 AM Interpretation: Performing Lab: Notes/Report: [address] [address] XRay Report Signed Patient: Aakash Coronado MR#: [id number] : 1960 Acct:[id number] Age/Sex: 63 / M ADM Date: 11/19/23 Loc: [facility] Attending Dr: Luiz Maguire MD Ordering Physician: Luiz Maguire MD Date of Service: 11/19/23 Procedure(s): XR foot LT min 3V Accession Number(s): [id number] cc: Luiz Maguire MD EXAMINATION: XR FOOT, LEFT CLINICAL INFORMATION: Left foot pain, shooting pain in foot for months and pain in fourth digit. No known injury. COMPARISON: 01/29/2015. TECHNIQUE: AP, lateral, and oblique views of the left foot. FINDINGS: Diffuse demineralization. Advanced degenerative changes at the first metatarsophalangeal joint with joint space narrowing and hypertrophic change. The fourth and fifth toes are flexed, limiting evaluation. Mild degenerative changes at the midfoot. XR/XR foot LT min 3V IMPRESSION: 1. Advanced degenerative changes in the first metatarsophalangeal joint. 2. Mild degenerative changes at the midfoot. 3. No displaced fracture appreciated in the fourth toe, however, evaluation limited as the fourth and fifth toes are flexed. This study was presented today December 01, 2023 for interpretation. Stat results provided at this time as requested by referring provider. Dictated By: Verona Jones MD Signed By: <Electronically signed by Verona Jones MD in OV> 12/01/23 0836 DD/ 1448 TD/TT: [employer] Grinder: [address] [address] XRay Report Signed Patient: Aakash Coronado MR#: [id number] : 1960 Acct:[id number] Age/Sex: 63 / M ADM Date: 11/19/23 Loc: [facility] Attending Dr: Luiz Maguire MD Ordering Physician: Luiz Maguire MD Date of Service: 11/19/23 Procedure(s): XR jose r t LT min 3V Accession Number(s): [id number] cc: Luiz Maguire MD EXAMINATION: XR FOOT, LEFT CLINICAL INFORMATION: Left foot pain, shoo ting pain in foot for months and pain in fourth digit. No known injury. COMPARISON: 01/29/2015. TECHNIQUE: AP, lateral, and obl ique views of the left foot. FINDINGS: Diffuse demineraliza tion. Advanced degenerative changes at the first metatarsophalangeal joint with joint space narrowing and hypertrophic change. The fourth and fifth toes are flexed, limiting evaluation. Mild degenerative changes at the midfoot. X R/XR foot LT min 3V IMPRESSION: 1. Advanced degenera tive changes in the first metatarsophalangeal joint. 2. Mild degenerative changes at the midfoot. 3. No displaced frac ture appreciated in the fourth toe, however, evaluation limited a s the fourth and fifth toes are flexed. This study was prese nted today December 01, 2023 for interpretation. Stat results provided at this time as requested by referring provider. Dictated By: Verona Jones MD Signed By: <Electronically signed by Verona Jones MD in OV> 12/01/23 0836 DD/ 1448 TD/TT: [employer] Grinder: Pathology Reviewed date:11/11/2023 09:00:50 PM Interpretation: Performing Lab:[facility], [address] [place] [phone] Notes/Report: ----- Name: James Coronado Age/Sex: 63/M : 1960 Unit#: [id number] Attend Dr: Jordi Monteiro MD Re11/09/23 Status : DEP REF Location: [facility] Disch: ----- SPEC : [id number] RECD : 11/10/2345 STATUS: PATRICA GONZALEZ NUM: [id number] JENNIFER: 11/09/23-1341 [facility] DR: Jordi Monteiro MD ENTERED: 11/10/23 59 SP TYPE: Surgical OTHR DR: Luiz Maguire MD ORDERED: Gross Micro L3 Diagnosis Soft tissue, left ch est wall, excision: Mature lobular adipose tissue consistent with lipoma. Clinical History Lipoma left chest wall Microscopic Description Microscopic sections reviewed. Material Received Lipoma left chest wall Gross Description Received in formalin labeled ?lipoma left chest wall? is a 5.0 x 3.5 x 1.8 cm mass of streeter-yellow lobula r adipose tissue. The margins are inked and the specimen is serially sectioned to reveal homogeneous streeter-yellow lobular fat. No fleshy, hemorrhagic or necrotic foci are identified. Endoscopy Technican sections are submitted in cassettes A1-A3. CEDS Copies To: Luiz Maguire MD [address] [place] [address], [facility] [address] [place], [place] [id number] Jordi Monteiro MD [facility] [address] [place] [address] ----- Signed (signature on file) Melissa Gallo 11/11/23 1518 ----- END OF REPORT XR chest 2V Reviewed date:07/09/2024 10:15:09 AM Interpretation: Performing Lab: Notes/Report: [address] [address] XRay Report Signed Patient: Aakash Coronado MR#: [id number] : 1960 Acct:[id number] Age/Sex: 64 / M ADM Date: 06/19/24 Loc: [facility] Attending Dr: Luiz Maguire MD Ordering Physician: Luiz Maguire MD Date of Service: 06/19/24 Procedure(s): XR chest 2V Accession Number(s): [id number] cc: Luiz Maguire MD EXAMINATION: XR CHEST 2 VIEWS HISTORY: PLEURITIC PAIN COMPARISON: Comparison is made with the prior examination dated 01/10/2021. FINDINGS: PA and lateral views of the chest are submitted. The lungs are expanded and clear. There is no pleural effusion, pneumothorax, or pulmonary vascular congestion. The heart is normal in size. Again seen are multiple old healed right rib fractures. XR/XR chest 2V IMPRESSION: No acute cardiopulmonary abnormality. Electronically signed by: Luiz Nick MD 06/19/2024 12:31 PM [facility] [place] Dictated By: Luiz Nick MD Signed By: <Electronically signed by Luiz Nick MD in OV> 06/19/24 1231 DD/ 1205 TD/TT: 06/19/24 1205 [employer] Grinder: [address] [address] XRay Report Signed Patient: Aakash Coronado MR#: [id number] : 1960 Acct:[id number] Age/Sex: 64 / M ADM Date: 06/19/24 Loc: [facility] Attending Dr: Luiz Maguire MD Ordering Physician: Luiz Maguire MD Date of Service: 06/19/24 Procedure(s): XR chest 2V Accession Number(s): [id number] cc: Luiz Maguire MD EXAMINATION: XR CHES T 2 VIEWS HISTORY: PLEURITIC PAIN COMPARISON: Comparis on is made with the prior examination dated 01/10/2021. FINDINGS: PA and lat eral views of the chest are submitted. The lungs are expanded and ellen ar. There is no pleural effusion, pneumothorax, or pulmonary vascular congestion. The heart is normal in size. Again seen are multiple ol d healed right rib fractures. X R/XR chest 2V IMPRESSION: No acute cardiopulmo nary abnormality. Electronically ede d by: Luiz Nick MD 06/19/2024 12:31 PM EST Dictated By: Luiz Nick MD Signed By: <Electronically signed by Luiz Nick MD in OV> 06/19/24 1231 DD/ 1205 TD/TT: 06/19/24 1205 [employer] Grinder: Complete Blood Count Auto Di ff Reviewed date:07/09/2024 10:15:09 AM Interpretation: Performing Lab:[facility], [address] [place] [phone] Notes/Report: White Blood Count 5.5 4.8-10.8 X10*3/uL Red Blood Count 4.39 4.60-5.80 X10*6/uL Hemoglobin 12.9 14.0-18.0 g/dl Hematocrit 38.7 42.0-52.0 % Mean Corpuscular Volume 88.2 80.0-98.0 fL Mean Corpuscular Hemoglobin 29.4 27.0-33.0 pg Mean Corpuscular HGB Conc 33.3 31.0-36.0 g/dl Red Cell Distribution Width 13.9 11.0-16.0 % Platelet Count 318 160-400 X10*3/uL Mean Platelet Volume 9.3 9.4-12.4 fL Neutrophils Percent Auto 51.1 45-73 % Imm Gran Pct Auto 0.4 0.0-0.4 % Lymphocytes Percent Auto 33.8 20-40 % Monocytes Percent Auto 9.0 2-11 % Eosinophils Percent Auto 4.4 0-4 % Basophils Percent Auto 1.3 0-2 % NRBC Pct Auto 0.0 0.0-0.2 /100WBC Neutrophils Absolute Auto 2.8 2.0-8. 3 x10*3/uL Imm Gran Abs Auto 0.02 0.00-0.03 X10*3/uL Lymphocytes Absolute Auto 1.9 1.2-4. 9 X10*3/uL Monocytes Absolute Auto 0.5 0.1-1.2 X10*3/uL Eosinophils Absolute Auto 0.2 0.0-0. 4 X10*3/uL Basophils Absolute Auto 0.1 0.0-0.2 X10*3/uL NRBC Abs Auto 0.000 0.0-0.012 X10*3/uL Erythrocyte Sedimentation Ra te Reviewed date:07/09/2024 10:15:09 AM Interpretation: Performing Lab:[facility], [address] [place] [phone] Notes/Report: Erythrocyte Sedimentation Rate 6 0-15 MM/HR Patients with polycythemia and many hemoglobin abnormalities may have depressed sed rates whereas patients with anemia may have elevated sed rates. Comprehensive [place]. Panel Fa st Reviewed date:07/09/2024 10:15:09 AM Interpretation: Performing Lab:[facility], [address] [place] [phone] Notes/Report: Sodium 143 135-145 mmol/L Potassium 5.7 3.3-5.1 mmol/L Chloride 109 96-108 mmol/L Carbon Dioxide 29 22-29 mmol/L Anion Gap 11 12-20 Blood Urea Nitrogen 18 9-16 mg/dL Creatinine 0.90 0.5-1.4 mg/dL Estimated Glomerular Filt Rate > 60 Chronic Kidney Disease: Estimated GFR < 60 mL/min/1.73m2 Severe Kidney Disease: Estimated GFR < 15 mL/min/1.73m2 Glucose Fasting 94 60-99 mg/dL Calcium 9.9 8.4-10.2 mg/dL Bilirubin Total 0.4 0.0-1.0 mg/dL Aspartate Amino Transferase 22 5-37 U/L Alanine Aminotransferase 20 0-40 U/L Total Protein 7.5 6.5-8.0 g/dL Albumin Level 4.5 3.5-5.0 g/dL Alkaline Phosphatase 56 39-117 U/L Lactate Dehydrogenase Reviewed date:07/09/2024 10:15:09 AM Interpretation: Performing Lab:[facility], [address] [place] [phone] Notes/Report: Lactate Dehydrogenase 162 118-273 U/L Lipid Panel Reviewed date:07/09/2024 10:15:09 AM Interpretation: Performing Lab:[facility], [address] [place] [phone] Notes/Report: Triglycerides 57 <150 mg/dL Desirable Triglyceride: less than 150 mg/dL Borderline High Triglyceride 150-199 mg/dL High Triglyceride: 200-499 mg/dL Very High Triglyceride: greater than or equal to 5OO mg/dL Cholesterol 220 <200 mg/dL Desirable Cholesterol: less than 200 mg/dL Borderline High Cholesterol: 200-239 mg/dL High Cholesterol: greater than 239 mg/dL LDL Cholesterol Calculated 135 <100 mg/dL Desirable LDL: less than 100 mg/dL Near Optimal/Above Optimal LDL: 110-129 mg/dL Borderline High LDL: 130-159 mg/dL High LDL: 160-189 mg/dL Very High LDL: greater than or equal to 190 mg/dL HDL Cholesterol 74 >40 mg/dL Desirable HDL: greater than 40 mg/dL Note: This HDL assay may give artificially low results in patients with liver disease. Prostate Specific Antigen Reviewed date:07/09/2024 10:15:09 AM Interpretation: Performing Lab:[facility], [address] [place] [phone] Notes/Report: Prostate Specific Antigen 1.49 <0.05-4.0 ng/mL PSA methodology: Roa Alinity i Chemiluminescent Microparticle Immunoassay (CMIA) D Dimer High Sensitivity Reviewed date:07/09/2024 10:15:09 AM Interpretation: Performing Lab:[facility], [address] [place] [phone] Notes/Report: D Dimer High Sensitivity 205 D-DIMER HS REFERENCE RANGE Note: Our assay reports D-Dimer Units (D-DU). The cut-off value for venous thromboembolic (VTE) disease is 230 ng/mL. This value has a very high negative predictive value when the patient has a low to moderate clinical probability of VTE. The upper limit of normal is 243 ng/mL. MR cervical spine wo con (No t yet reviewed by provider) Interpretation: Performing Lab: Notes/Report: [address] [place] [address] Magnetic Resonance Report Signed Patient: Aakash Coronado MR#: [id number] : 1960 Acct:[id number] Age/Sex: 64 / M ADM Date: 07/22/24 Loc: HO.MRI Attending Dr: Luiz Maguire MD Ordering Physician: Luiz Maguire MD Date of Service: 07/22/24 Procedure(s): MR cervical spine wo con Accession Number(s): [id number] cc: Luiz Maguire MD EXAMINATION: MR CERVICAL SPINE WITHOUT CONTRAST CLINICAL INFORMATION: Nerve. COMPARISON: March 14, 2020 demonstrated central spinal canal stenosis at C4-5 and C5-6 levels with neuroforamina stenosis C3 C7. TECHNIQUE: MRI of the cervical spine was obtained using routine sequences without contrast. FINDINGS: Bone marrow inhomogeneity. Bone marrow STIR signal abnormality at C6 and to a lesser extent superior endplate of C7. Multilevel marginal osteophyte formation and disc desiccation C3 T3. Hypointense T1 and T2 bone marrow signal at C6 and T3. Grade 1 retrolisthesis C3-4, C5-6 and C6-7 levels. Grade 1 anterolisthesis, C4-5 and C7-T1. Cervical spinal cord signal is normal. Craniocervical junction is intact. C2-3: Broad-based disc osteophyte complex formation. No cord compression. No neuroforamina stenosis. C3-4: Disc osteophyte compresses formation resulting in ventral thecal sac deformity. Bilateral neuroforamina narrowing on a degenerative basis. No cord compression. C4-5: Disc osteophyte compresses formation resulting in ventral thecal sac deformity. No cord compression. Left neuroforamina stenosis on a degenerative basis. C5-6: Disc osteophyte complex formation resulting in ventral deformity of the thecal sac. No cord compression. Bilateral neuroforamina stenosis on a degenerative basis. C6-7: Disc osteophyte complex formation resulting in ventral thecal sac deformity. No cord compression. Bilateral neuroforamina stenosis. C7-T1: No disc herniation. No gross neuroforamina stenosis. No prevertebral compartment hematoma, mass or fluid collection. Flow void signal within the main vessels is normal. Codominant vertebral arteries. MR/MR cervical spine wo con IMPRESSION: Multilevel cervical spondylosis C2 C7 resulting in central spinal canal stenosis, C3-4 C4-5 and C6-7 and bilateral neuroforamina stenosis more conspicuous on the left side from C3 to C3 C6-7. No cord edema and or myelopathy. Abnormal bone marrow suggesting calcium metabolic disorder versus lymphoproliferative disorders. Multiple myeloma cannot be entirely excluded. Electronically signed by: Jovanny Perry MD 07/24/2024 08:46 AM EDT RP Dictated By: Jovanny Dallas MD Signed By: <Electronically signed by Jovanny Ashby MD in OV> 07/24/24 0846 DD/ 0950 TD/TT: 07/22/24 1020 [employer] Grinder: [place] [address] Magnetic Resonance Report Signed Patient: Aakash Coronado MR#: [id number] : 1960 Acct:[id number] Age/Sex: 64 / M ADM Date: 07/22/24 Loc: HO.MRI Attending Dr: Luiz Maguire MD Ordering Physician: Luiz Maguire MD Date of Service: 07/22/24 Procedure(s): MR jose vical spine wo con Accession Number(s): [id number] cc: Luiz Maguire MD EXAMINATION: MR CERVICAL SPINE WI THOUT CONTRAST CLINICAL INFORMATION: Nerve. COMPARISON: March 14, 2020 demonstrated central spinal canal stenosis at C4-5 and C5-6 levels with neuroforamina stenosis C3 C7. TECHNIQUE: MRI of the cervical spine was obtained using routine sequences without contrast. FINDINGS: Bone marrow inhomogeneity. Bone marrow STIR sig nal abnormality at C6 and to a lesser extent superior endplate of C7. Multilevel marginal osteophyte formation and disc desiccation C3 T3. Hypointense T1 and T 2 bone marrow signal at C6 and T3. Grade 1 retrolisthes is C3-4, C5-6 and C6-7 levels. Grade 1 anterolisthe sis, C4-5 and C7-T1. Cervical spinal cord signal is normal. Craniocervical junct ion is intact. C2-3: Broad-based disc osteophyte complex formation. No cord compression. No neuroforamina stenosis. C3-4: Disc osteophyte compresses formation resulting in ventral thecal sac deformity. Bilateral neuroforamina narrowing on a degenerative basis. No cord compression. C4-5: Disc osteophyte compresses formation resulting in ventral thecal sac deformity. No cord compression. Left neuroforamina stenosis on a degenerative basis. C5-6: Disc osteophyte comp hussein formation resulting in ventral deformity of the thecal sac. No cord compression. Bilateral neuroforamina stenosis on a degenerative basis. C6-7: Disc osteophyte comp hussein formation resulting in ventral thecal sac deformity. No cord compression. Bilateral neuroforamina stenosis. C7-T1: No disc herniation. No gross neuroforamina stenosis. No prevertebral compartment hematoma, mass or fluid collection. Flow void signal within t he main vessels is normal. Codominant vertebral arteries. M R/MR cervical spine wo con IMPRESSION: Multilevel cervical spondylosis C2 C7 resulting in central spinal canal stenosis, C3-4 C4-5 and C6-7 and bilateral neuroforamina stenosis more conspicuous on the l eft side from C3 to C3 C6-7. No cord edema and or myelopathy. Abnormal bone marrow suggesting calcium metabolic disorder versus lymphoproliferative disorders. Multiple myeloma cannot be entirely excluded. Electronically ede d by: Jovanny Perry MD 07/24/2024 08:46 AM EDT RP Dictated By: Jovanny Hendrickson MD Signed By: <Electronically signed by Jovanny Ashby MD in OV> 07/24/24 0846 DD/ 0950 TD/TT: 07/22/24 1020 [employer]inder: Reason For Referral Reason Consult and Treat Se susan pain MTP Joint Diagnosis 1 Foot pain (M79.673) Referral Organization Luiz Maguire III, MD Referring Provider First Name Luiz Referring Provider Last Name Andrez Referring Provider Speciality Internal M edicine Referred Provider HERNAN FOOTE Referred Provider Specialty Podiatry General Notes Brinda Arce 2023 01:32:13 PM EDT > Faxed referral, xray and progress note. Referral Priority Routine Referral Appointment Date 01/12/2024 Reason Evaluate and Treat Diagnosis 1 Cervical radiculopat hy (M54.12) Diagnosis 2 Neck pain on left si de (M54.2) Referral Organization Luiz Maguire III, MD Referring Provider First Name Luiz Referring Provider Last Name Andrez Referring Provider Speciality Internal M edicine Referred Provider [facility] er, Pain Management Referred Provider Specialty Pain Medicin e General Notes Brinda Patton 07/21/2024 02:53:26 PM >Per Dr. Maguire faxed referral without MRI. Referral and last progress note faxed, Brinda Patton 07/24/2024 09:27:13 AM > MRI faxed., Brinda Patton 07/26/2024 01:21:22 PM > Received fax from [facility] stated they can not book the patient [...] to pay them at this time at [employer] Brinda Patton 08/03/2024 01:55:31 PM > Per Dr. Maguire send patient to Pain Management at [facility], referral faxed Referral Priority Routine Referral Appointment Date 08/25/2024 Medications Medication SIG (Take, Route, Frequency, Duration) Notes Start Date End Date Status Atorvastatin Calcium 10 MG TAKE 1 TABLET BY MOUTH EVERY DAY FOR 90 DAYS Active Centrum Silver - as directed Orally Active Albuterol Sulfate HFA 108 (90 Base) MCG/ACT INHALE 1 PUFF BY MOUTH EVERY 4 HOURS Inhalation every 4 hrs for 30 days Active EPINEPHrine 0.15 MG/0.3ML use one pen In jection for a bee sting 03/08/2024 Active traZODone HCl 150 MG TAKE 1 TABLET BY [facility] EVERYDAY AT BEDTIME Active Gabapentin 300 MG 1 capsule Orally thr ee times a day 07/07/2024 Active Immunizations Vaccine Route Administration Date Status Comme nts PPD (Planted) Unknown 11/28/2013 Administered Influenza IM Intramuscular 01/17/2016 Administered PPD (Planted) ID Intradermal 01/20/2016 Administered Influenza IM Intramuscular 01/13/2017 Administered Influenza no Preserv 3 and > IM Intramuscular 02/16/2019 Administered Influenza, quad IM Intramuscular 03/13/2020 Administered Influenza, quad Unknown 03/16/2022 Administered COVID 19 Moderna Unknown 08/19/2020 Administered COVID 19 Moderna Unknown 04/03/2021 Administered COVID 19 Moderna Unknown 09/16/2020 Administered Influenza, quad IM Intramuscular 02/18/2023 Administered Social History Tobacco Use: Social History Observation Description Date Details (start date - stop date) Former Smoker NA - NA Sex Assigned At : Social History Observation Description Sex Assigned At Male Tobacco Use/Smoking Question Answer Notes Patient is a former smoker How long has it been since you last smoked? > 10 years Additional Findings: Tobacco Non-User Ex-cigaret te smoker Alcohol Screen Question Answer Notes Did you have a drink containing alcohol in the p ast year? No Points 0 Interpretation Negative Problems Problem Type SNOMED Code ICD Code Onset Dates Problem Status W/U Status Risk Notes Problem 7266986 Former smoker (Z87.891) Active confirmed He seems highly motivated not to smoke. His COPD has improved. He has a strategy to prevent relapse in times of stress and illness. Problem 55965099 Depression (F32.9) Active confirmed His depression was very minimal today. He continued on current therapy. Problem 820370953 GERD (gastroesophage al reflux disease) (K21.9) Active confirmed His reflux symptoms are well controlled with medication. He is sleeping through the night usually. No change in his medication was necessary Problem 283028133 Mixed hyperlipidemia (E78.2) Active confirmed His lipid values have been in the normal range.. We discussed diet and nutrition and the elements of a low animal fat diet today. Comprehensive blood work with a fasting lipid profile has been ordered Problem Benign prostatic hyperplasia (103288579) BPH (benign prostatic hyperplasia) (N40.0) Active confirmed He rises from sleep once a night to urinate. We have discussed lifestyle modification as a way to reduce nocturia. Problem 673817983 Erectile dysfunction, unspecified erectile dysfunction type (N52.9) Active confirmed This problem is stable with medication and no change in regimen was made. Problem 97372190 Anxiety disorder due to multiple medical problems (F06.8) Active confirmed His anxiety is stable at this time and he is coping with it. Problem 46583177 COPD (chronic obstructive pulmonary disease) (J44.9) Active confirmed His breathing is unlabored and unrestricted. He has not smoked in a prolonged time. He is doing very well with respiration. Problem 74210656 Cervical radiculopathy (M54.12) Active confirmed He is waiting to see paain management for injections. This is unsuccessful I will see about a neurosurgical consultation. His symptoms are significant at this time but not life-threateni ng. Problem 628553869 Umbilical hernia (K42.9) Active confirmed This was repaired in the past and is asymptomatic at the current time. Problem Cataract (166467151) Cataract (H26.9) Active confirmed Problem Basal cell carcinoma of face (443554746) Basal cell carcinoma of face (C44.310) Active confirmed This is being treated. Problem 7905651 Lumbosacral radiculopathy (M54.17) Active confirmed Low back pain is now minimal. He is avoiding heavy lifting and undue exertion. Problem 63299008 Bilateral hearing loss, unspecified hearing loss type (H91.93) Active confirmed He reports no change in his hearing. Problem 624922070 Benign prostatic hyperplasia, unspecified whether lower urinary tract symptoms present (N40.0) Active confirmed He rises at most once a night to urinate depending upon fluid intake. We have discussed lifestyle modification as a way to reduce nocturia. Problem 8497084952594315 Subacute osteomyelitis of right tibia (M86.261) Active confirmed The drainage is minimal. He will continue with current therapy and will be observed. The wound care clinic has been involved. Problem 483107659 Age-related incipient cataract of left eye (H25.092) Active confirmed This was explained. He was referred to ophthalmology. Problem 666117028443169 Lipoma of torso (D17.1) Active confirmed The mass under the skin below his left breast is been resected and was a lipoma. The wound has healed well. No further treatment is needed. Vital Signs Heart Rate 66 /min 08/18/2024 Temperature 97.6 degrees Fahrenheit 08/18/2024 Blood pressure diastolic 74 mm Hg 08/18/2024 Height 69 in 08/18/2024 Blood pressure systolic 128 mm Hg 08/18/2024 Weight 146 lbs 08/18/2024 BMI 21.56 kg/m2 08/18/2024 Encounters Encounter Location Date Provider Diagnosis Luiz Maguire III, MD [address] [place] [address] [place] [phone] 11/19/2023 Luiz Maguire Mixed hyperlipidemia E78.2 ; Left foot pain M79.672 ; GERD (gastroesophageal reflux disease) K21.9 ; Former smoker Z87.891 ; Subacute osteomyelitis of right tibia M86.261 ; Bilateral hearing loss, unspecified hearing loss type H91.93 ; Benign prostatic hyperplasia, unspecified whether lower urinary tract symptoms present N40.0 and Lipoma of torso D17.1 Luiz Maguire III, MD [address] [place] [address] [place] [id number] 11/29/2023 Luiz Maguire Mixed hyperlipidemia E78.2 ; Right foot pain M79.671 ; COPD (chronic obstructive pulmonary disease) J44.9 ; GERD (gastroesophageal reflux disease) K21.9 ; Depression F32.9 ; Former smoker Z87.891 and Lumbosacral radiculopathy M54.17 Luiz Maguire III, MD [address] [place] [address] [place] [id number] 03/08/2024 Luiz Maguire COPD (chronic obstructive pulmonary disease) J44.9 ; Depression F32.9 ; GERD (gastroesophageal reflux disease) K21.9 ; Mixed hyperlipidemia E78.2 ; Lumbosacral radiculopathy M54.17 ; Former smoker Z87.891 and Cervical radiculopathy M54.12 Luiz Maguire III, MD [address] [place] [address] [place] [id number] 06/19/2024 Luiz Maguire COPD (chronic obstructive pulmonary disease) J44.9 ; Pleuritic pain R07.81 ; GERD (gastroesophageal reflux disease) K21.9 ; Umbilical hernia K42.9 ; Depression F32.9 and Anxiety disorder due to multiple medical problems F06.8 Luiz Maguire III, MD [address] [place] [address] [place] [id number] 07/07/2024 Luiz Maguire COPD (chronic obstructive pulmonary disease) J44.9 ; Cervical radiculopathy M54.12 ; GERD (gastroesophageal reflux disease) K21.9 ; Depression F32.9 ; Former smoker Z87.891 ; Lumbosacral radiculopathy M54.17 and BPH (benign prostatic hyperplasia) N40.0 Luiz Maguire III, MD [address] [place] [address] [place] [id number] 07/21/2024 Luiz Maguire COPD (chronic obstructive pulmonary disease) J44.9 ; Cervical radiculopathy M54.12 ; Former smoker Z87.891 ; BPH (benign prostatic hyperplasia) N40.0 ; Lumbosacral radiculopathy M54.17 ; Mixed hyperlipidemia E78.2 and Depression F32.9 Luiz Maguire III, MD [address] [place] [address] [place] [phone] 08/18/2024 Luiz Maguire COPD (chronic obstructive pulmonary disease) J44.9 ; Cervical radiculopathy M54.12 ; GERD (gastroesophageal reflux disease) K21.9 ; Former smoker Z87.891 ; BPH (benign prostatic hyperplasia) N40.0 ; Subacute osteomyelitis of right tibia M86.261 and Bilateral hearing loss, unspecified hearing loss type H91.93 Luiz Maguire III, MD [address] [place] [address] [place] [id number] 01/24/2024 Luiz Maguire III, MD [address] [place] [address] [place] [id number] 01/25/2024 Luiz Maguire III, MD [address] [place] [address] [place] [phone] 06/20/2024 Luiz Maguire Assessments Encounter Date Diagnosis (ICD Code) Assessment Notes Treat ment Notes Treatment Clinical Notes 11/19/2023 Mixed hyperlipidemia (ICD-10 - E78.2) His lipid values are in the normal range.. We discussed diet and nutrition and the elements of a low animal fat diet today. 11/19/2023 Left foot pain (ICD-10 - M79.672) This is likely arthritis at the fourth left MTP joint. X-ray has been requested to confirm this. There is no sign of gout or infection. 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 11/29/2023 Mixed hyperlipidemia (ICD-10 - E78.2) His lipid values are in the normal range.. We discussed diet and nutrition and the elements of a low animal fat diet today. 03/08/2024 Depression (ICD-10 - F32.9) His depression was very minimal today. He continued on current therapy. 03/08/2024 COPD (chronic obstructive pulmonary disease) (ICD-10 - J44.9) His breathing is unlabored and unrestricted. He has not smoked in a prolonged time. He is doing very well with respiration. 06/19/2024 COPD (chronic obstructive pulmonary disease) (ICD-10 - J44.9) His breathing is unlabored and unrestricted. He has not smoked in a prolonged time. He is doing very well with respiration. 06/19/2024 Pleuritic pain (ICD-10 - R07.81) He will have a chest x-ray and comprehensive blood work with a d-dimer. 07/07/2024 COPD (chronic obstructive pulmonary disease) (ICD-10 [...] pain management and neurosurgery after an MRI. 07/21/2024 COPD (chronic obstructive pulmonary disease) (ICD-10 - J44.9) His breathing is unlabored and unrestricted. He has not smoked in a prolonged time. He is doing very well with respiration. 07/21/2024 Cervical radiculopathy (ICD-10 - M54.12) The neck pain is generally improving. Continues to feel pain on the upper thoracic portion of his axilla and the left shoulder current therapy was continued. 08/18/2024 COPD (chronic obstructive pulmonary disease) (ICD-10 [...] significant at this time but not life-threatening. 11/19/2023 GERD (gastroesophageal reflux disease) (ICD-10 - K21.9) His reflux symptoms are well controlled with medication. He is sleeping through the night usually. No change in his medication was necessary 11/29/2023 COPD (chronic obstructive pulmonary disease) (ICD-10 - J44.9) His breathing is unlabored and unrestricted. He has not smoked in a prolonged time. He is doing very well with respiration. 03/08/2024 GERD (gastroesophageal reflux disease) (ICD-10 - K21.9) His reflux symptoms are well controlled with medication. He is sleeping through the night usually. No change in his medication was necessary 06/19/2024 GERD (gastroesophageal reflux disease) (ICD-10 - K21.9) His reflux symptoms are well controlled with medication. He is sleeping through the night usually. No change in his medication was necessary 07/07/2024 GERD (gastroesophageal reflux disease) (ICD-10 - K21.9) His reflux symptoms are well controlled with medication. He is sleeping through the night usually. No change in his medication was necessary 07/21/2024 Former smoker (ICD-10 - Z87.891) He seems highly motivated not to smoke. His COPD has improved. He has a strategy to prevent relapse in times of stress and illness. 08/18/2024 GERD (gastroesophageal reflux disease) (ICD-10 - K21.9) His reflux symptoms are well controlled with medication. He is sleeping through the night usually. No change in his medication was necessary 11/19/2023 Former smoker (ICD-10 - Z87.891) He seems highly motivated not to smoke. His COPD has improved. He has a strategy to prevent relapse in times of stress and illness. 11/29/2023 GERD (gastroesophageal reflux disease) (ICD-10 - K21.9) [...] a fasting lipid profile has been ordered 06/19/2024 Umbilical hernia (ICD-10 - K42.9) This was repaired in the past and is asymptomatic at the current time. 07/07/2024 Depression (ICD-10 - F32.9) His depression was very minimal today. He continued on current therapy. 07/21/2024 BPH (benign prostatic hyperplasia) (ICD-10 - N40.0) He rises from sleep once a night to urinate. We have discussed lifestyle modification as a way to reduce nocturia. 08/18/2024 Former smoker (ICD-10 - Z87.891) He seems highly motivated not to smoke. His COPD has improved. He has a strategy to prevent relapse in times of stress and illness. 11/19/2023 Subacute osteomyelitis of right tibia (ICD-10 - M86.261) The drainage is minimal. He will continue with current therapy and will be observed. The wound care clinic has been involved. 11/29/2023 Depression (ICD-10 - F32.9) His depression was very minimal today. He continued on current therapy. 03/08/2024 Lumbosacral radiculopathy (ICD-10 - M54.17) The low back pain has now completely resolved and he is comfortable. 06/19/2024 Depression (ICD-10 - F32.9) His depression was very minimal today. He continued on current therapy. 07/07/2024 Former smoker (ICD-10 - Z87.891) He seems highly motivated not to smoke. His COPD has improved. He has a strategy to prevent relapse in times of stress and illness. 07/21/2024 Lumbosacral radiculopathy (ICD-10 - M54.17) Low back pain is now minimal. He is avoiding heavy lifting and undue exertion. 08/18/2024 BPH (benign prostatic hyperplasia) (ICD-10 - N40.0) He rises from sleep once a night to urinate. We have discussed lifestyle modification as a way to reduce nocturia. 11/19/2023 Bilateral hearing loss, unspecified hearing loss type (ICD-10 - H91.93) He reports no change in his hearing. 11/29/2023 Former smoker (ICD-10 - Z87.891) He seems highly motivated not to smoke. His COPD has improved. He has a strategy to prevent relapse in times of stress and illness. 03/08/2024 Former smoker (ICD-10 - Z87.891) He seems highly motivated not to smoke. His COPD has improved. He has a strategy to prevent relapse in times of stress and illness. 06/19/2024 Anxiety disorder due to multiple medical problems (ICD-10 - F06.8) His anxiety is stable at this time and he is coping with it. 07/07/2024 Lumbosacral radiculopathy (ICD-10 - M54.17) The low back pain has now completely resolved and he is comfortable. 07/21/2024 Mixed hyperlipidemia (ICD-10 - E78.2) His lipid values have been in the normal range.. We discussed diet and nutrition and the elements of a low animal fat diet today. Comprehensive blood work with a fasting lipid profile has been ordered 08/18/2024 Subacute osteomyelitis of right tibia (ICD-10 - M86.261) The drainage is minimal. He will continue with current therapy and will be observed. The wound care clinic has been involved. 11/19/2023 Benign prostatic hyperplasia, unspecified whether lower urinary tract symptoms present (ICD-10 - N40.0) He rises at most once a night to urinate depending upon fluid intake. We have discussed lifestyle modification as a way to reduce nocturia. 11/29/2023 Lumbosacral radiculopathy (ICD-10 - M54.17) The low back pain has now completely resolved and he is comfortable. 03/08/2024 Cervical radiculopathy (ICD-10 - M54.12) He has no residual pain in his neck and the strength in his left arm is now back to normal. 07/07/2024 BPH (benign prostatic hyperplasia) (ICD-10 - N40.0) He rises from sleep once a night to urinate. We have discussed lifestyle modification as a way to reduce nocturia. 07/21/2024 Depression (ICD-10 - F32.9) His depression was very minimal today. He continued on current therapy. 08/18/2024 Bilateral hearing loss, unspecified hearing loss type (ICD-10 - H91.93) He reports no change in his hearing. 11/19/2023 Lipoma of torso (ICD-10 - D17.1) The mass under the skin below his left breast is been resected and was a lipoma. The wound has healed well. No further treatment is needed. Plan Of Treatment Pending Test Test Name Order Date PROFILE, FASTING (COMPREHENSIVE METABOLI C) 05/26/2022 PROFILE, FASTING (COMPREHENSIVE METABOLI C) 01/31/2020 PROFILE, FASTING (COMPREHENSIVE METABOLI C) 2021 PROFILE, FASTING (COMPREHENSIVE METABOLI C) 03/08/2024 PROFILE, FASTING (COMPREHENSIVE METABOLI C) 01/01/2023 PROFILE, FASTING (COMPREHENSIVE METABOLI C) 10/09/2019 PROFILE, FASTING (COMPREHENSIVE METABOLI C) 10/07/2020 PROFILE, FASTING (COMPREHENSIVE METABOLI C) 08/25/2023 PROFILE, FASTING (COMPREHENSIVE METABOLI C) 09/17/2021 PROFILE, FASTING (COMPREHENSIVE METABOLI C) 08/24/2022 PROFILE, FASTING (COMPREHENSIVE METABOLI C) 04/18/2020 PROFILE, FASTING (COMPREHENSIVE METABOLI C) 05/17/2023 PROFILE, FASTING (COMPREHENSIVE METABOLI C) 06/03/2021 LIPID PANEL 04/18/2020 LIPID PANEL 05/26/2022 LIPID PANEL 01/31/2020 LIPID PANEL 01/01/2023 LIPID PANEL 10/09/2019 LIPID PANEL 10/07/2020 LIPID PANEL 08/25/2023 LIPID PANEL 09/17/2021 LIPID PANEL 08/24/2022 LDH 06/19/2024 PSA, TOTAL 08/24/2022 PSA, TOTAL 06/03/2021 PSA, TOTAL 2021 PSA, TOTAL 03/08/2024 PSA, TOTAL 10/09/2019 PSA, TOTAL 10/07/2020 PSA, TOTAL 08/25/2023 CBC w DIFF 10/07/2020 CBC w DIFF 08/25/2023 CBC w DIFF 08/24/2022 CBC w DIFF 04/18/2020 CBC w DIFF 06/03/2021 CBC w DIFF 05/26/2022 CBC w DIFF 01/31/2020 CBC w DIFF 2021 CBC w DIFF 01/01/2023 CBC w DIFF 09/17/2021 CBC w DIFF 10/09/2019 SED RATE (ESR) 06/19/2024 D-DIMER 06/19/2024 MRI CERVICAL SPINE NO CONTRAST MRI CERVICAL SPINE NO CONTRAST 0 US ABD 07/07/2019 CBC WITH AUTO DIFF 05/17/2023 CBC WITH AUTO DIFF 03/08/2024 Lipid Panel 05/17/2023 Lipid Panel 2021 Lipid Panel 03/08/2024 MR cervical spine wo con 07/22/2024 Next Appt Details Provider Name:Luiz Maguire, 10/18/2024 03:00:00 PM, [address] [facility] [address], [place], [id number], Provider Name:Luiz Maguire, 03/13/2025 02:00:00 PM, [address] [facility] [address], [place], [id number], Insurance Providers Payer Name Payer Address Payer Phone Subscriber Number Group Number Insured Name Patient Relationship to Insured Coverage Start Date Coverage End Date MEDICARE NGS [address] [place] [address] [id number] Aakash Holt Self - patient is the insured [place] [address] [place] [id number] [phone] [id number] Aakash Holt Self - patient is the insured Medical (General) History Medical History History ICD Code diverticulitis COPD former smoker anxiety gerd umbilical hernia polysubstance abuse lumbar radiculopathy herpes zoster September 2016 hearing loss right ear Osteomyelitis right tibia 2020 Alcohol use disorderIn long-term recover y Surgical History Surgery Date(Month/Year) No history Debridement osteomyelitis, right tibia 2 021 blood clots removals 2019 compound fracture right femur, skin deepa t from right thigh 1981 umbilical herniorrhaphy 2011 Hospitalization History Reason Date(Month/Year) No history
--- OUTSIDE RECORDS SUMMARY | 2024-08-25 12:45 | XMS_ITS ---
Author Organization Luiz Maguire III, MD Address [address] [place] [address] [place] [id number] Care Team Providers Care Chemical Lab Technician Name Role Phone Luiz Maguire Primary Care [...] HCl 150 MG [facility]T [facility] Active Albuterol Sulfate HFA [...] Date Provider Diagnosis Luiz Maguire III, MD [address] [place] [address] [address] [place] [id number] 08/04/2024 Luiz Maguire COPD (chronic obstructive pulmonary [...] HCl 150 MG TAKE 1 TABLET [facility] AT [facility]TIME Albuterol Sulfate HFA [...] day 07/21/2024 Next Appt Details Provider Name:Luiz Maguire, 10/18/2024 03:00:00 PM, [address] [place] [address] [address], [place], [id number], Provider Name:Luiz Maguire, 03/13/2025 02:00:00 PM, [address] [facility] [address], [place], [id number], Progress Notes * Aakash CORONADODOB:1959 (64 yo M)Acc No.[id number]:08/04/2024 Progress Notes Patient:?Aakash CORONADO Provider:?Luiz Maguire MD :1960???Age:64 Y???Sex:Male Luis Fernando e:08/04/2024 Address:[address] [place] [address] [place], [id number] Subjective: * Chief Complaints: * ???1. Follow up. * HPI: ???COVID-19 Screening:?Questions?Have you had any [...] Tobacco Non-User?Ex-cigarette smoker ???He has been to [place] for 23 years and not working. He has no toxic exposures. He enjoys poker, football. billiards, cribbage. He was born in [place], [place]. * Medications:?Taking EPINEPHr ine 0.15 MG/0.3ML [...] High - Onset Date 10/18/2019. Objective: * Vitals:? * Examination: ???General Examination: ?GENERAL APPEARANCE:?pleasant, well [...] time. He is doing very well with respiration.??? Plan: * Treatment: 2.?Others? Continue EPINEPHrine Solution Auto-injector, 0.15 MG/0.3ML, use one pen, Injection, for a bee sting.?? * Images: * The named appointment provid er may or may not be the originator of this progress note, and it is not deemed complete until electronically signed by the appointment provider. Sign off status: Pending * Provider:?Luiz Maguire MD Date:?07/25 Generated for Taco cavanaugh/Negrito/eTransmitting on:?08/25/2024 12:45 PM EDT History and Physical [...]
== END 2024-08-25 12:53 | disposition home or self-care (01) ==
LOC: HO.PMC 11:54
PROVIDERS: PCP Internal Medicine Medical Oncology; Referring Provider Internal Medicine Medical Oncology; Visit Provider Internal Medicine
DX: M96.1 Postlaminectomy syndrome, not elsewhere classified (principal); M47.816 Spondylosis without myelopathy or radiculopathy, lumbar region; S22.000A Wedge compression fracture of unspecified thoracic vertebra, initial encounter for closed fracture
CPT/HCPCS: 99214

== ENCOUNTER → 2024-08-25 11:54 | Outpatient (BNVA) | payer MEDICARE, MEDICAID, SELFPAY | PROVIDERS: PCP Internal Medicine Medical Oncology; Referring Provider Internal Medicine Medical Oncology; Visit Provider Internal Medicine | DX: M54.12 Radiculopathy, cervical region (principal) | CPT/HCPCS: 99212 ==

== ENCOUNTER 2025-04-10 08:18 | Outpatient (REF) | payer MEDICARE, MEDICAID, SELFPAY ==
--- OUTSIDE RECORDS SUMMARY | 2024-06-20 08:38 | XMS_ITS ---
Author Organization Luiz Maguire III, MD Address [address] [place] [address] [place] [address] Care Team Providers Care Textile Machinery Sales Representative Name Role Phone Dr. Luiz Maguire III Primary Care Provider [phone] REASON FOR VISIT Xr Results Social History Sex Assigned At : Social History Observation Description Sex Assigned At Male Encounters Encounter Location Date Provider Diagnosis Luiz Maguire III, MD [address] [place] [address] [place] [address] 06/20/2024 Luiz Maguire Plan Of Treatment Next Appt Details Provider Name:Luiz Maguire , 09/11/2025 02:00:00 PM, [address] [place] [address] [place], [address], Provider Name:Luiz Maguire , 03/15/2026 02:00:00 PM, [address] [place] [address] [place], [id number], Progress Notes * Aakash CORONADODOB:1959 (64 yo M)Acc No.[id number]:06/20/2024 Patient: Pooja Aakash TRACEY :1960 A ge:64 Y S ex:Male Address:[facility] [place] [address] * true * Date: Generated for Taco cavanaugh/Negrito/eTransmitting on: 1 06/11/2024 08:36 AM EST
--- OUTSIDE RECORDS SUMMARY | 2024-07-07 06:45 | XMS_ITS ---
Author Organization Luiz Maguire III, MD Address [address] [place] [address] [place] [address] Care Team Providers Care Correspondent Name Role Phone Dr. Luiz Maguire III Primary Care Provider [phone] Allergies Allergen (clinical drug ingredient) Drug/Non Drug Allergy documented on EMR Reaction Allergy Type Onset Date Status Vicodin Unknown Drug Allergy Active Shellfish (FN) scallops (uncoded) Unknown Allergy Active Bee Sting anaphylaxis Allergy 10/18/2019 Active Reason For Referral Reason Evaluate and Treat Diagnosis 1 Cervical radiculopat hy (M54.12) Diagnosis 2 Neck pain on left si de (M54.2) Referral Organization Luiz Maguire III, MD Referring Provider First Name Luiz Referring Provider Last Name Andrez Referring Provider Speciality Internal M edicine Referred Provider [facility] er, Pain Management Referred Provider Specialty Pain Medicin e General Notes D, Brinda 07/21/2024 02:53:26 PM >Per Dr. Maguire faxed referral without MRI. Referral and last progress note faxedPooja Amber 07/24/2024 09:27:13 AM > MRI faxed.Pooja Amber 07/26/2024 01:21:22 PM > Received fax from [facility] stated they can not book the patient due to having a balance and was sent to collections. Patient was notified and given their number to contact them regarding the balance. Patient stated he will call back to let us know if he would like to be sent elsewhere or if it was resolved, Brinda Patton 08/03/2024 01:43:44 PM > Patient requested to go elsewhere as he does not have the money to pay them at this time at [facility] Brinda Patton 08/03/2024 01:55:31 PM > Per Dr. Maguire send patient to Pain Management at [facility], referral faxed Referral Priority Routine Referral Appointment Date 08/25/2024 REASON FOR VISIT Recurrent severe pain left neck shoulder and axilla, Anxiety, COPD, GERD, Depression, Lumbar radiculopathy, Cervical radiculopathy Medications Medication SIG (Take, Route, Frequency, Duration) Notes Start Date End Date Status Centrum Silver - as directed Orally Active dexAMETHasone 2 MG 1 tablet Orally twic e a day for 14 days 07/07/2024 Active traZODone HCl 150 MG TAKE 1 TABLET BY MO UTH EVERYDAY AT BEDTIME Active Atorvastatin Calcium 10 MG TAKE 1 TABLET BY MOUTH EVERY DAY FOR 90 DAYS Active EPINEPHrine 0.15 MG/0.3ML use one pen In jection for a bee sting 03/08/2024 Active dexAMETHasone 2 MG TAKE 1 TABLET BY HAMILTON TH EVERY 12 HOURS ORALLY EVERY 12 HRS WITH FOOD 14 DAYS Active Gabapentin 300 MG 1 capsule Orally thr ee times a day for 14 days 07/07/2024 Active Albuterol Sulfate HFA 108 (90 Base) MCG/ACT INHALE 1 PUFF BY MOUTH EVERY 4 HOURS NEEDED Active Social History Tobacco Use: Social History [...] Non-User Ex-cigaret te smoker Vital Signs Temperature 97.7 degrees Fahrenheit 07/08/19 25 Blood pressure systolic 135 mm Hg 07/08/19 25 Blood pressure diastolic 69 mm Hg 025 Heart Rate 61 /min 07/07/2024 Height 69 in 07/07/2024 Weight 143 lbs 07/07/2024 BMI 21.12 kg/m2 07/07/2024 Encounters Encounter Location Date Provider Diagnosis Luiz Maguire III, MD [address] [place] [address] [place] [address] 07/07/2024 Luiz Maguire COPD (chronic obstructive pulmonary disease) J44.9 ; Cervical radiculopathy M54.12 ; GERD (gastroesophageal reflux disease) K21.9 ; Depression F32.9 ; Former smoker Z87.891 ; Lumbosacral radiculopathy M54.17 and BPH (benign prostatic hyperplasia) N40.0 Assessments Encounter Date Diagnosis (ICD Code) Assessment Notes Treat ment Notes Treatment Clinical Notes 07/07/2024 COPD (chronic obstructive pulmonary disease) (ICD-10 - J44.9) His breathing is unlabored and unrestricted. He has not smoked in a prolonged time. He is doing very well with respiration. 07/07/2024 Cervical radiculopathy (ICD-10 - M54.12) I have recommended he rest and ibuprofen. I have prescribed dexamethasone and gabapentin. If necessary I will prescribe cyclobenzaprine. He will be referred to pain management and neurosurgery after an MRI. 07/07/2024 GERD (gastroesophageal reflux disease) (ICD-10 - K21.9) His reflux symptoms are well controlled with medication. He is sleeping through the night usually. No change in his medication was necessary 07/07/2024 Depression (ICD-10 - F32.9) His depression was very minimal today. He continued on current therapy. 07/07/2024 Former smoker (ICD-10 - Z87.891) He seems highly motivated not to smoke. His COPD has improved. He has a strategy to prevent relapse in times of stress and illness. 07/07/2024 Lumbosacral radiculopathy (ICD-10 - M54.17) The low back pain has now completely resolved and he is comfortable. 07/07/2024 BPH (benign prostatic hyperplasia) (ICD-10 - N40.0) He rises from sleep once a night to urinate. We have discussed lifestyle modification as a way to reduce nocturia. Plan Of Treatment Medication Medication Name Sig Start Date Stop Date Notes Centrum Silver - as directed Orally dexAMETHasone 2 MG 1 tablet Orally twic e a day for 14 days 07/07/2024 traZODone HCl 150 MG TAKE 1 TABLET BY MO UTH EVERYDAY AT BEDTIME Atorvastatin Calcium 10 MG TAKE 1 TABLET BY MOUTH EVERY DAY FOR 90 DAYS EPINEPHrine 0.15 MG/0.3ML use one pen In jection for a bee sting 03/08/2024 dexAMETHasone 2 MG TAKE 1 TABLET BY HAMILTON TH EVERY 12 HOURS ORALLY EVERY 12 HRS WITH FOOD 14 DAYS Gabapentin 300 MG 1 capsule Orally thr ee times a day for 14 days 07/07/2024 Albuterol Sulfate HFA 108 (9 0 Base) MCG/ACT INHALE 1 PUFF BY MOUTH EVERY 4 HOURS NEEDED Pending Test Test Name Order Date MRI CERVICAL SPINE NO CONTRAST Referrals Referral Date Details 07/07/2024 07/07/2024, Evaluate and Treat, Pain Management [facility] Next Appt Details Follow Up: 2 Weeks, Reason: OV Provider Name:Luiz Maguire , 09/11/2025 02:00:00 PM, [address] [place] [address] [address], [place], [id number], Provider Name:Luiz Maguire , 03/15/2026 02:00:00 PM, [address] [place] [address] [address], [place], [id number], Progress Notes * Aakash CORONADODOB:1959 (64 yo M)Acc No.[id number]:07/07/2024 Progress Notes Patient: Aakash ANDERSON Provider: Sid Maguire MD :1960 A ge:64 Y S ex:Male Date:07/07/2024 Address:[address] [place] [address] Joaquin [id number] Subjective: * Chief Complaints: * R ecurrent severe pain left neck shoulder and axillaAnxietyCOPDGERDDepressionLumbar radiculopathyCervical radiculopathy * HPI: C OVID-19 Screening: He comes to the office saying that for the last month he has had a painful pressure-like feeling in his left neck that radiates to his shoulder and the skin of his chest wall in the axilla not related to motion of his neck. He has a history of severe degenerative changes in his cervical spine is offered traction and surgery if that did not work. His pain has been much less in recent years but for the last month has been seveere. He has no lack of strength in the left arm and the remainder of his neurological exam was normal. I have ordered a repeat MRI of the neck. He will need a referral to pain management and to neurosurgery if this does not resolve quickly. I have prescribed gabapentin and dexamethasone. Questions H ave you had any new onset fever, chills, cough, congestion, sore throat, shortness of breath, muscle aches? N o * ROS: G eneral/Constitutional: pain L eft neck upper left chest wall and axilla and left arm. C hills d enies. F atigue a dmits. F ever d enies. E NT: Decreased hearing d enies. R espiratory: Cough d enies. C ardiovascular: Chest pain with exertion d enies. D yspnea on exertion?denies. S hortness of breath d enies. G astrointestinal: Constipation o ccasional. D ecreased appetite d enies. D iarrhea d enies. H eartburn d enies. N ausea d enies. R ectal bleeding d enies. V omiting d enies. H ematology: bruising d enies. p etechiae d enies. S wollen glands n one have been noted. G enitourinary: Frequent urination o nce a night. M usculoskeletal: Muscle aches d enies. P ainful joints d enies. S ciatica d enies. W eakness d enies. S kin: Itching d enies. R malissa d enies. S kin lesion(s)?denies. N eurologic: Difficulty speaking d enies. D izziness d enies.?Headache d enies. L ow back pain d enies. P sychiatric: Depressed mood w hich is mild. * Medical History: * Surgical History: u mbilical herniorrhaphy 2011compound fracture right femur, skin graft from right thigh 1980blood clots removals 2019Debridement osteomyelitis, right tibia 2020No history * Hospitalization/Major Diagno stic Procedure: N o history * Family History: F ather: 81 yrs, chronic obstructive pulmonary disease, diverticulitis. M other: 72 yrs, breast cancer, lung cancer, diagnosed with Cancer. S iblings: alive, brain cancer, lung cancer. 6 brother(s) , 1 sister(s) . 2 son(s) - healthy. . He is not aware of any other malignancies or other inherited cancer family syndrome. He has a history of alcoholism and polydrug abuse. There is alcoholism in his family. There is a history of depression in his family. He is not aware of any other history of addiction substance abuse or mental illness. * Social History: T obacco Use: T obacco Use/Smoking P atient is a f ormer smoker H ow long has it been since you last smoked??> 10 years A dditional Findings: Tobacco Non-User E x-cigarette smoker Corinne watt has been to [place] for 23 years and not working. He has no toxic exposures. He enjoys poker, football. billMiramet[employer]ds, cribbage. He was born in [place], [place]. * Medications: T akingEPINEPHrine 0.15 MG/0.3ML Solution Auto-injector use one pen Injection for a bee sting traZODone HCl 150 MG Tablet TAKE 1 TABLET BY MOUTH EVERYDAY AT BEDTIME Atorvastatin Calcium 10 MG Tablet TAKE 1 TABLET BY MOUTH EVERY DAY FOR 90 DAYS Centrum Silver - Tablet as directed Orally Albuterol Sulfate HFA 108 (90 Base) MCG/ACT Aerosol Solution INHALE 1 PUFF BY MOUTH EVERY 4 HOURS NEEDED dexAMETHasone 2 MG Tablet TAKE 1 TABLET BY MOUTH EVERY 12 HOURS ORALLY EVERY 12 HRS WITH FOOD 14 DAYS Taking EPINEPHrine 0.15 MG/0.3ML Solution Auto-injector use one pen Injection for a bee sting Taking traZODone HCl 150 MG Tablet TAKE 1 TABLET BY MOUTH EVERYDAY AT BEDTIME Taking Atorvastatin Calcium 10 MG Tablet TAKE 1 TABLET BY MOUTH EVERY DAY FOR 90 DAYS Taking Centrum Silver - Tablet as directed Orally Taking Albuterol Sulfate HFA 108 (90 Base) MCG/ACT Aerosol Solution INHALE 1 PUFF BY MOUTH EVERY 4 HOURS NEEDED Taking dexAMETHasone 2 MG Tablet TAKE 1 TABLET BY MOUTH EVERY 12 HOURS ORALLY EVERY 12 HRS WITH FOOD 14 DAYS DiscontinuedEPINEPHrine 0.15 MG/0.3ML Solution Auto-injector one pen Injection once when stung by bee Medication List reviewed and reconciled with the patientDiscontinued EPINEPHrine 0.15 MG/0.3ML Solution Auto-injector one pen Injection once when stung by bee Medication List reviewed and reconciled with the patient * Allergies: V icodinscallopsBee Sting: anaphylaxis - Allergy - Criticality High - Onset Date 10/18/2019no[Allergies Verified] Objective: * Vitals: H t: 69, Wt: 143, BMI:21.12, BP: 135/69, HR: 61, Temp: 97.7, Ht-cm: 175.26, Wt-k.86. * Examination: G eneral Examination: GENERAL APPEARANCE: p leasant, well nourished, well developed, in no acute distress, calm and relaxed, man. HEAD: a traumatic, normocephalic. EYES: e jann, perrla, anicteric, conjugate. EARS: n ormal. NOSE: s eptum intact. ORAL CAVITY: n ormal, unremarkable. NECK/THYROID: n o jugular venous distention, no carotid bruit, thyroid normal, Range of motion is slightly limited, see significant muscle spasm painful to the touch musculature left neck below the ear. LYMPH NODES: n o enlarged lymph nodes,spleen normal. SKIN: n o suspicious lesions, anicteric. HEART: n o clicks, gallops, murmurs, or rubs, regular rhythm, S1, S2 normal, no s3, or vascular bruits. LUNGS: c lear to auscultation . BREASTS: no masses palpable bilaterally. ABDOMEN: b owel sounds normal, no ascites, no organomegaly, no mass. RECTAL EXAM: n ot examined. MUSCULOSKELETAL: e xtremities unremarkable, no clubbing, cyanosis or edema, Marked muscle spasm left neck. PERIPHERAL PULSES: n ormal. NEUROLOGIC: a lert and oriented, cranial nerves 2-12 grossly intact, deep tendon reflexes 2+ symmetrical, motor strength normal upper and lower extremities, sensory exam intact. PSYCH: a lert, oriented. Assessment: * Assessment: 1. C ervical radiculopathy - M54.12 (Primary) N otes :I have recommended he rest and ibuprofen. I have prescribed dexamethasone and gabapentin.? If necessary I will prescribe cyclobenzaprine. He will be referred to pain management and neurosurgery after an MRI. 2 . C OPD (chronic obstructive pulmonary disease) - J44.9 N otes :His breathing is unlabored and unrestricted. He has not smoked in a prolonged time. He is doing very well with respiration. 3 . G ERD (gastroesophageal reflux disease) - K21.9 N otes :His reflux symptoms are well controlled with medication. He is sleeping through the night usually. No change in his medication was necessary 4 . D epression - F32.9 N otes :His depression was very minimal today. He continued on current therapy. 5 . F ormer smoker - Z87.891 N otes :He seems highly motivated not to smoke. His COPD has improved. He has a strategy to prevent relapse in times of stress and illness. 6 . L umbosacral radiculopathy - M54.17 N otes :The low back pain has now completely resolved and he is comfortable. 7 . B PH (benign prostatic hyperplasia) - N40.0 N otes :He rises from sleep once a night to urinate. We have discussed lifestyle modification as a way to reduce nocturia. Plan: * Treatment: 2. C OPD (chronic obstructive pulmonary disease) Continue traZODone HCl Tablet, 150 MG, TAKE 1 TABLET BY MOUTH EVERYDAY AT BEDTIME; C ontinue Atorvastatin Calcium Tablet, 10 MG, TAKE 1 TABLET BY MOUTH EVERY DAY FOR 90 DAYS; C ontinue Centrum Silver Tablet, -, as directed, Orally; C ontinue Albuterol Sulfate HFA Aerosol Solution, 108 (90 Base) MCG/ACT, INHALE 1 PUFF BY MOUTH EVERY 4 HOURS NEEDED; C ontinue dexAMETHasone Tablet, 2 MG, TAKE 1 TABLET BY MOUTH EVERY 12 HOURS ORALLY EVERY 12 HRS WITH FOOD 14 DAYS; S tart dexAMETHasone Tablet, 2 MG, 1 tablet, Orally, twice a day, 14 days, 28 Tablet, Refills 1; S tart Gabapentin Capsule, 300 MG, 1 capsule, Orally, three times a day, 14 days, 42 Capsule, Refills 1. ? 3. O thers Continue EPINEPHrine Solution Auto-injector, 0.15 MG/0.3ML, use one pen, Injection, for a bee sting. Referral To:[facility] Reason:Evaluate and Treat * Imaging: * I maging: MRI CERVICAL SPINE NO CONTRAST * Procedure Codes: * Preventive Medicine: Counseling: S moking/Tobacco Use Patient counseled on the dangers of tobacco use and urged to quit. 0 07/07/2024 COPD Care Plan: P atient Lifestyle Goals R elieve symptoms and improve quality of life, Reduce number of ED and hospitalizations, Be able to be more active with friends and family. T reatment Goals E at a nutritious diet and increase water consumption to 6-8 glasses a day. B arriers n o barriers. S elf-Managment Goals G et an air purifier for the rooms you are in the most, Eat a healthy diet, Exercise at least 3xs per week for at least 30 mins.? * Follow Up: 2 Weeks (Reason: OV) * Images: * Sign off status: Completed true * Provider: Sid Maguire MD Date: 0 07/07/2024 Generated for Taco cavanaugh/Negrito/Ariasmitting on: 1 06/11/2024 08:37 AM EST History and Physical Notes * HPI [...] venous di stention, no carotid bruit, thyroid normal, Range of motion is slightly limited, see significant muscle spasm painful to the touch musculature left neck below the ear HEART: no clicks, gallops, murmurs, or rubs, [...] extremities unremark able, no clubbing, cyanosis or edema, Marked muscle spasm left neck LYMPH NODES: no enlarged lymph no cipriano,spleen normal RECTAL EXAM: not examined PSYCH: alert, oriented ORAL CAVITY: normal, unremarkable Consultation Request Notes Referral Date Referring Provider Referred Provider Not es 07/07/2024 Luiz Maguire [facility], Pain Management Evaluate and Treat
--- OUTSIDE RECORDS SUMMARY | 2024-07-21 09:30 | XMS_ITS ---
Author Organization Luiz Maguire III, MD Address [address] [place] [address] [place] [address] Care Team Providers Care Surveillance Operator Name Role Phone Dr. Luiz Maguire III Primary Care Provider Allergies Allergen (clinical drug ingredient) Drug/Non Drug Allergy documented on EMR Reaction Allergy Type Onset Date Status Vicodin Unknown Drug Allergy Active Shellfish (FN) scallops (uncoded) Unknown Allergy Active Bee Sting anaphylaxis Allergy 10/18/2019 Active REASON FOR VISIT Left shoulder/axillary pain, Cervical radiculopathy, GERD, History of depression, Hyperlipidemia, Lumbar radiculopathy, COPD, Hearing loss, Benign prostatic hypertrophy Medications Medication SIG (Take, Route, Frequency, Duration) Notes Start Date End Date Status diazePAM 5 MG 1 tablet as needed Orally Once a day for 1 days 07/21/2024 Active Gabapentin 300 MG 1 capsule Orally thr ee times a day 07/07/2024 Active dexAMETHasone 2 MG 1 tablet Orally twic e a day 07/07/2024 Active Albuterol Sulfate HFA 108 (90 Base) MCG/ACT INHALE 1 PUFF BY MOUTH EVERY 4 HOURS NEEDED Active Centrum Silver - as directed Orally Active Atorvastatin Calcium 10 MG TAKE 1 TABLET BY MOUTH EVERY DAY FOR 90 DAYS Active traZODone HCl 150 MG TAKE 1 TABLET BY [facility] EVERYDAY AT BEDTIME Active EPINEPHrine 0.15 MG/0.3ML use one pen In jection for a bee sting 03/08/2024 Active Social History Tobacco Use: Social History [...] Non-User Ex-cigaret te smoker Vital Signs Temperature 97.5 degrees Fahrenheit 07/22/19 25 Blood pressure systolic 109 mm Hg 07/22/19 25 Blood pressure diastolic 56 mm Hg 025 Heart Rate 57 /min 07/21/2024 Height 69 in 07/21/2024 Weight 149 lbs 07/21/2024 BMI 22 kg/m2 07/21/2024 Encounters Encounter Location Date Provider Diagnosis Luiz Maguire III, MD [address] [place] [address] [place] [address] 07/21/2024 Luiz Maguire COPD (chronic obstructive pulmonary disease) J44.9 ; Cervical radiculopathy M54.12 ; Former smoker Z87.891 ; BPH (benign prostatic hyperplasia) N40.0 ; Lumbosacral radiculopathy M54.17 ; Mixed hyperlipidemia E78.2 and Depression F32.9 Assessments Encounter Date Diagnosis (ICD Code) Assessment Notes Treat ment Notes Treatment Clinical Notes 07/21/2024 COPD (chronic obstructive pulmonary disease) (ICD-10 - J44.9) His breathing is unlabored and unrestricted. He has not smoked in a prolonged time. He is doing very well with respiration. 07/21/2024 Cervical radiculopathy (ICD-10 - M54.12) The neck pain is generally improving. Continues to feel pain on the upper thoracic portion of his axilla and the left shoulder current therapy was continued. 07/21/2024 Former smoker (ICD-1 0 - Z87.891) He seems highly motivated not to smoke. His COPD has improved. He has a strategy to prevent relapse in times of stress and illness. 07/21/2024 BPH (benign prostati c hyperplasia) (ICD-10 - N40.0) He rises from sleep once a night to urinate. We have discussed lifestyle modification as a way to reduce nocturia. 07/21/2024 Lumbosacral radiculopathy (ICD-10 - M54.17) Low back pain is now minimal. He is avoiding heavy lifting and undue exertion. 07/21/2024 Mixed hyperlipidemia (ICD-10 - E78.2) His lipid values have been in the normal range.. We discussed diet and nutrition and the elements of a low animal fat diet today. Comprehensive blood work with a fasting lipid profile has been ordered 07/21/2024 Depression (ICD-10 - F32.9) His depression was very minimal today. He continued on current therapy. Plan Of Treatment Medication Medication Name Sig Start Date Stop Date Notes diazePAM 5 MG 1 tablet as needed O rally Once a day for 1 days 07/21/2024 Gabapentin 300 MG 1 capsule Orally thr ee times a day 07/07/2024 dexAMETHasone 2 MG 1 tablet Orally twice a day 07/07/2024 Albuterol Sulfate HFA 108 (9 0 Base) MCG/ACT INHALE 1 PUFF BY MOUTH EVERY 4 HOURS NEEDED Centrum Silver - as directed Orally Atorvastatin Calcium 10 MG TAKE 1 TABLET BY MOUTH EVERY DAY FOR 90 DAYS traZODone HCl 150 MG TAKE 1 TABLET BY [facility] EVERYDAY AT BEDTIME EPINEPHrine 0.15 MG/0.3ML use one pen In jection for a bee sting 03/08/2024 Next Appt Details Follow Up: 2 Weeks, Reason: OV Provider Name:Luiz Maguire , 09/11/2025 02:00:00 PM, [address] [place] [address] [place], [place], [phone], Provider Name:Luiz Maguire , 03/15/2026 02:00:00 PM, [address] [place] [address] [place], [phone], Progress Notes * Danna CORONADO:1959 (64 yo M)Acc No.[id number]:07/21/2024 Progress Notes Patient: Aakash ANDERSON Provider: Sid Maguire MD :1960 A ge:64 Y S ex:Male Date:07/21/2024 Address:[address] [place] [address] Joaquin [place], [id number] Subjective: * Chief Complaints: * L eft shoulder/axillary painCervical radiculopathyGERDHistory of depressionHyperlipidemiaLumbar radiculopathyCOPDHearing lossBenign prostatic hypertrophy * HPI: C OVID-19 Screening: He has recently had a flareup of cervical radiculopathy with pain in the left shoulder and axilla. He reports today that the neck pain is much improved but the pain in the left axilla and upper left chest wall is unchanged. He has been able to conduct all of the activities of daily life. He has been compliant with all of his medications. He has no new complaints. He is breathing comfortably. Respiratory effort does not affect the pain. Questions H ave you had any new onset fever, chills, cough, congestion, sore throat, shortness of breath, muscle aches? N o * ROS: G eneral/Constitutional: pain L eft shoulder, neck, and axilla, otherwise only normal aches and pains. C hills d enies. F atigue a dmits. F ever d enies. ? E NT: Decreased hearing d enies. R espiratory: Cough d enies. C ardiovascular: Chest pain with exertion d enies. D yspnea on exertion?denies. S hortness of breath w ith exertion. G astrointestinal: Constipation o ccasional. D ecreased appetite d enies. D iarrhea d enies. H eartburn d enies. N ausea d enies. R ectal bleeding d enies. V omiting d enies. H ematology: bruising d enies. p etechiae d enies. S wollen glands n one have been noted. G enitourinary: Frequent urination d enies. M usculoskeletal: Muscle aches d enies. P ainful joints L eft shoulder. S ciatica d enies. W eakness d enies. S kin: Itching d enies. R malissa d enies. S kin lesion(s)?denies. N eurologic: Difficulty speaking d enies. D izziness d enies.?Headache d enies. L ow back pain d enies. P sychiatric: Depressed mood d enies. * Medical History: * Surgical History: u [...] x-cigarette smoker Corinne watt has been to [employer] for 23 years and not working. He has no toxic exposures. He enjoys poker, football. [employer], cribbage. He was born in [place], [place]. * Medications: T akingEPINEPHrine 0.15 MG/0.3ML [...] 4 HOURS NEEDED dexAMETHasone 2 MG Tablet 1 tablet Orally twice a day Gabapentin 300 MG Capsule 1 capsule Orally three times a day Taking EPINEPHrine 0.15 MG/0.3ML Solution Auto-injector use [...] HOURS NEEDED Taking dexAMETHasone 2 MG Tablet 1 tablet Orally twice a day Taking Gabapentin 300 MG Capsule 1 capsule Orally three times a day DiscontinueddexAMETHasone 2 MG Tablet TAKE 1 TABLET BY MOUTH EVERY 12 HOURS ORALLY EVERY 12 HRS WITH FOOD 14 DAYS Medication List reviewed and reconciled with the patientDiscontinued dexAMETHasone 2 MG Tablet TAKE 1 TABLET BY MOUTH EVERY 12 HOURS ORALLY EVERY 12 HRS WITH FOOD 14 DAYS Medication List reviewed and reconciled with the patient * Allergies: V icodinscallopsBee Sting: anaphylaxis - Allergy - Criticality High - Onset Date 10/18/2019no[Allergies Verified] Objective: * Vitals: H t: 69, Wt: 149, BMI:22, BP: 109/56, HR: 57, Temp: 97.5, Ht-cm: 175.26, Wt-k.59. * P ast Orders: I maging:XR chest 2V (Order Date - 06/19/2024) (Performed Date - 06/19/2024) Lab:Complete Blood Count Aut o Diff * Collection Date 06/27/2024 02/18/2023 03/31/2022 Collection Time 11:01 AM 02:20 PM 01:55 PM Order Date 06/27/2024 02/18/2023 03/31/2022 White Blood Count 5.5 (Ref Range: 4.8-10.8 X10*3/uL) 10.4 (Ref Range: 4.8-10.8 X10*3/uL) 9.5 (Ref Range: 4.8-10.8 X10*3/uL) Red Blood Count 4.39 L (Ref Range: 4.60-5.80 X10*6/uL) 3.93 L (Ref Range: 4.60-5.80 X10*6/uL) 3.87 L (Ref Range: 4.60-5.80 X10*6/uL) Hemoglobin 12.9 L (Ref Range: 14.0-18.0 g/dl) 11.7 L (Ref Range: 14.0-18.0 g/dl) 11.5 L (Ref Range: 14.0-18.0 g/dl) Hematocrit 38.7 L (Ref Range: 42.0-52.0 %) 34.8 L (Ref Range: 42.0-52.0 %) 34.6 L (Ref Range: 42.0-52.0 %) Mean Corpuscular Volume 88.2 (Ref Range: 80.0-98.0 fL) 88.5 (Ref Range: 80.0-98.0 fL) 89.4 (Ref Range: 80.0-98.0 fL) Mean Corpuscular Hemoglobin 29.4 (Ref Range: 27.0-33.0 pg) 29.8 (Ref Range: 27.0-33.0 pg) 29.7 (Ref Range: 27.0-33.0 pg) Mean Corpuscular HGB Conc 33.3 (Ref Range: 31.0-36.0 g/dl) 33.6 (Ref Range: 31.0-36.0 g/dl) 33.2 (Ref Range: 31.0-36.0 g/dl) Red Cell Distribution Width 13.9 (Ref Range: 11.0-16.0 %) 13.3 (Ref Range: 11.0-16.0 %) 14.1 (Ref Range: 11.0-16.0 %) Platelet Count 318 (Ref Range: 160-400 X10*3/uL) 329 (Ref Range: 160-400 X10*3/uL) 361 (Ref Range: 160-400 X10*3/uL) Mean Platelet Volume 9.3 L (Ref Range: 9.4-12.4 fL) 9.0 L (Ref Range: 9.4-12.4 fL) 9.6 (Ref Range: 9.4-12.4 fL) Neutrophils Percent Auto 51.1 (Ref Range: 45-73 %) 56.5 (Ref Range: 45-73 %) 48.6 (Ref Range: 45-73 %) Imm Gran Pct Auto 0.4 (Ref Range: 0.0-0.4 %) 0.3 (Ref Range: 0.0-0.4 %) 0.2 (Ref Range: 0.0-0.4 %) Lymphocytes Percent Auto 33.8 (Ref Range: 20-40 %) 32.7 (Ref Range: 20-40 %) 38.3 (Ref Range: 20-40 %) Monocytes Percent Auto 9.0 (Ref Range: 2-11 %) 7.9 (Ref Range: 2-11 %) 8.1 (Ref Range: 2-11 %) Eosinophils Percent Auto 4.4 H (Ref Range: 0-4 %) 2.0 (Ref Range: 0-4 %) 4.1 H (Ref Range: 0-4 %) Basophils Percent Auto 1.3 (Ref Range: 0-2 %) 0.6 (Ref Range: 0-2 %) 0.7 (Ref Range: 0-2 %) NRBC Pct Auto 0.0 (Ref Range: 0.0-0.2 /100WBC) 0.0 (Ref Range: 0.0-0.2 /100WBC) 0.0 (Ref Range: 0.0-0.2 /100WBC) Neutrophils Absolute Auto 2.8 (Ref Range: 2.0-8.3 x10*3/uL) 5.9 (Ref Range: 2.0-8.3 x10*3/uL) 4.6 (Ref Range: 2.0-8.3 x10*3/uL) Imm Gran Abs Auto 0.02 (Ref Range: 0.00-0.03 X10*3/uL) 0.03 (Ref Range: 0.00-0.03 X10*3/uL) 0.02 (Ref Range: 0.00-0.03 X10*3/uL) Lymphocytes Absolute Auto 1.9 (Ref Range: 1.2-4.9 X10*3/uL) 3.4 (Ref Range: 1.2-4.9 X10*3/uL) 3.7 (Ref Range: 1.2-4.9 X10*3/uL) Monocytes Absolute Auto 0.5 (Ref Range: 0.1-1.2 X10*3/uL) 0.8 (Ref Range: 0.1-1.2 X10*3/uL) 0.8 (Ref Range: 0.1-1.2 X10*3/uL) Eosinophils Absolute Auto 0.2 (Ref Range: 0.0-0.4 X10*3/uL) 0.2 (Ref Range: 0.0-0.4 X10*3/uL) 0.4 (Ref Range: 0.0-0.4 X10*3/uL) Basophils Absolute Auto 0.1 (Ref Range: 0.0-0.2 X10*3/uL) 0.1 (Ref Range: 0.0-0.2 X10*3/uL) 0.1 (Ref Range: 0.0-0.2 X10*3/uL) NRBC Abs Auto 0.000 (Ref Range: 0.0-0.012 X10*3/uL) 0.000 (Ref Range: 0.0-0.012 X10*3/uL) 0.000 (Ref Range: 0.0-0.012 X10*3/uL) * Lab:Prostate Specific Antige n * Collection Date 06/27/2024 02/18/2023 06/03/2021 Collection Time 11:01 AM 02:20 PM 12:23 PM Order Date 06/27/2024 02/18/2023 06/03/2021 Prostate Specific Antigen 1.49 (Ref Range: <0.05-4.0 ng/mL) 1.33 (Ref Range: <0.05-4.0 ng/mL) 1.18 (Ref Range: <0.05-4.0 ng/mL) * Lab:Lipid Panel * Collection Date 06/27/2024 02/18/2023 03/31/2022 Collection Time 11:01 AM 02:20 PM 01:55 PM Order Date 06/27/2024 02/18/2023 03/31/2022 Triglycerides 57 (Ref Range: <150 mg/dL) 220 H (Ref Range: <150 mg/dL) 157 (Ref Range: mg/dL) Cholesterol 220 H (Ref Range: <200 mg/dL) 196 (Ref Range: <200 mg/dL) 212 (Ref Range: mg/dL) LDL Cholesterol Calculated 135 H (Ref Range: <100 mg/dL) 110 H (Ref Range: <100 mg/dL) 137 (Ref Range: mg/dl) HDL Cholesterol 74 (Ref Range: >40 mg/dL) 42 (Ref Range: >40 mg/dL) 44 (Ref Range: mg/dL) ???Lab:Lactate Dehydrogenase (Order Date - 06/27/2024) (Collection Date & Time - 06/27/2024 11:01 AM)?ValueReference Range?Lactate [id number] 118-273 - U/L * Lab:Comprehensive [place]. Same l Fast * Collection Date 06/27/2024 02/18/2023 03/31/2022 Collection Time 11:01 AM 02:20 PM 01:55 PM Order Date 06/27/2024 02/18/2023 03/31/2022 Sodium 143 (Ref Range: 135-145 mmol/L) 141 (Ref Range: 135-145 mmol/L) 141 (Ref Range: 135-145 mmol/L) Bilirubin Total 0.4 (Ref Range: 0.0-1.0 mg/dL) 0.3 (Ref Range: 0.0-1.0 mg/dL) 0.3 (Ref Range: 0.0-1.0 mg/dL) Aspartate Amino Transferase 22 (Ref Range: 5-37 U/L) 20 (Ref Range: 5-37 U/L) 19 (Ref Range: 5-37 U/L) Alanine Aminotransferase 20 (Ref Range: 0-40 U/L) 18 (Ref Range: 0-40 U/L) 12 (Ref Range: 0-40 U/L) Total Protein 7.5 (Ref Range: 6.5-8.0 g/dL) 7.3 (Ref Range: 6.5-8.0 g/dL) 7.0 (Ref Range: 6.5-8.0 g/dL) Albumin Level 4.5 (Ref Range: 3.5-5.0 g/dL) 4.5 (Ref Range: 3.5-5.0 g/dL) 4.7 (Ref Range: 3.5-5.0 g/dL) Alkaline Phosphatase 56 (Ref Range: 39-117 U/L) 69 (Ref Range: 39-117 U/L) 56 (Ref Range: 39-117 U/L) Potassium 5.7 H (Ref Range: 3.3-5.1 mmol/L) 4.4 (Ref Range: 3.3-5.1 mmol/L) 4.6 (Ref Range: 3.3-5.1 mmol/L) Chloride 109 H (Ref Range: 96-108 mmol/L) 105 (Ref Range: 96-108 mmol/L) 105 (Ref Range: 96-108 mmol/L) Carbon Dioxide 29 (Ref Range: 22-29 mmol/L) 27 (Ref Range: 22-29 mmol/L) 28 (Ref Range: 22-29 mmol/L) Anion Gap 11 L (Ref Range: 12-20) 13 (Ref Range: 12-20) 13 (Ref Range: 12-20) Blood Urea Nitrogen 18 H (Ref Range: 9-16 mg/dL) 10 (Ref Range: 9-16 mg/dL) 13 (Ref Range: 9-16 mg/dL) Creatinine 0.90 (Ref Range: 0.5-1.4 mg/dL) 0.86 (Ref Range: 0.5-1.4 mg/dL) 0.87 (Ref Range: 0.5-1.4 mg/dL) Estimated Glomerular Filt Rate > 60 > 60 > 60 Glucose Fasting 94 (Ref Range: 60-99 mg/dL) 100 H (Ref Range: 60-99 mg/dL) 71 (Ref Range: 60-99 mg/dL) Calcium 9.9 (Ref Range: 8.4-10.2 mg/dL) 9.9 (Ref Range: 8.4-10.2 mg/dL) 9.6 (Ref Range: 8.4-10.2 mg/dL) * Lab:Erythrocyte Sedimentatio n Rate * Collection Date 06/27/2024 01/02/2021 Collection Time 11:01 AM 11:46 AM Order Date 06/27/2024 01/02/2021 Erythrocyte Sedimentation Rate 6 (Ref Range: 0-15 MM/HR) 8 (Ref Range: 0-15 MM/HR) ???Lab:D Dimer High Sensitivity (Order Date - 06/27/2024) (Collection Date & Time - 06/27/2024 11:01 AM)?ValueReference Range?D Dimer High [id number]- NG/ML * Examination: G eneral Examination: GENERAL APPEARANCE: p leasant, well nourished, well developed, in no acute distress, calm and relaxed, man. HEAD: a traumatic, normocephalic. EYES: e jann, perrla, anicteric, conjugate. EARS: n ormal. NOSE: s eptum intact. ORAL CAVITY: n ormal, unremarkable. NECK/THYROID: n o jugular venous distention, no carotid bruit, thyroid normal, Pain to range of motion of neck that radiates to left shoulder, improving. LYMPH NODES: n o enlarged lymph nodes,spleen [...] xtremities unremarkable, no clubbing, cyanosis or edema, Old vertical scar right leg below knee. PERIPHERAL PULSES: n ormal. NEUROLOGIC: a lert and oriented, cranial nerves 2-12 grossly intact, deep tendon reflexes 2+ symmetrical, motor strength normal upper and lower extremities, sensory exam intact. PSYCH: a lert, oriented. Assessment: * Assessment: 1. C ervical radiculopathy - M54.12 (Primary) N otes :The neck pain is generally improving. Continues to feel pain on the upper thoracic portion of his axilla and the left shoulder current therapy was continued. 2 . C OPD (chronic obstructive pulmonary disease) - J44.9 N otes :His breathing is unlabored and unrestricted. He has not smoked in a prolonged time. He is doing very well with respiration. 3 . F ormer smoker - Z87.891 N otes :He seems highly motivated not to smoke. His COPD has improved. He has a strategy to prevent relapse in times of stress and illness. 4 . B PH (benign prostatic hyperplasia) - N40.0 N otes :He rises from sleep once a night to urinate. We have discussed lifestyle modification as a way to reduce nocturia. 5 . L umbosacral radiculopathy - M54.17 N otes :Low back pain is now minimal. He is avoiding heavy lifting and undue exertion. 6 . M ixed hyperlipidemia - E78.2 N otes :His lipid values have been in the normal range.. We discussed diet and nutrition and the elements of a low animal fat diet today. Comprehensive blood work with a fasting lipid profile has been ordered 7 . D epression - F32.9 N otes :His depression was very minimal today. He continued on current therapy. Plan: * Treatment: 2. O thers Continue EPINEPHrine Solution Auto-injector, 0.15 MG/0.3ML, use one pen, Injection, for a bee sting. * Procedure Codes: * Preventive Medicine: Counseling: S moking/Tobacco Use Patient counseled on the dangers of tobacco use and urged to quit. 0 07/21/2024 COPD Care Plan: P atient Lifestyle Goals B e able to be more active with friends and family, Reduce number of ED and hospitalizations, Relieve symptoms and improve quality of life. T reatment Goals E xercise to help whole body, including lungs. B arriers n o barriers. S elf-Managment Goals G et an air purifier for the rooms you are in the most, Eat a healthy diet. * Follow Up: 2 Weeks (Reason: OV) * Images: * Sign off status: Completed true * Provider: Sid Maguire MD Date: 0 07/21/2024 Generated for Taco cavanaugh/Negrito/eTransmitting on: 1 06/11/2024 08:37 AM EST History [...] di stention, no carotid bruit, thyroid normal, Pain to range of motion of neck that radiates to left shoulder, improving HEART: no clicks, gallops, murmurs, or rubs, [...] unremark able, no clubbing, cyanosis or edema, Old vertical scar right leg below knee LYMPH NODES: no enlarged lymph no cipriano,spleen normal RECTAL EXAM: not examined PSYCH: alert, oriented ORAL CAVITY: normal, unremarkable
--- OUTSIDE RECORDS SUMMARY | 2024-08-04 11:45 | XMS_ITS ---
Author Organization Luiz Maguire III, MD Address [address] [place] [address] [place] [address] Care Team Providers Care Er Tech Name Role Phone Dr. Luiz Maguire III Primary Care Provider [phone] Allergies Allergen (clinical drug ingredient) Drug/Non Drug Allergy documented on EMR Reaction Allergy Type Onset Date Status Vicodin Unknown Drug Allergy Active Shellfish (FN) scallops (uncoded) Unknown Allergy Active Bee Sting anaphylaxis Allergy 10/18/2019 Active REASON FOR VISIT Follow up Medications Medication SIG (Take, Route, Frequency, Duration) Notes Start Date End Date Status EPINEPHrine 0.15 MG/0.3ML use one pen In jection for a bee sting 03/08/2024 Active traZODone HCl 150 MG TAKE 1 TABLET BY MO UT EVERYDAY AT BEDTIME Active Albuterol Sulfate HFA 108 (90 Base) MCG/ACT INHALE 1 PUFF BY MOUTH EVERY 4 HOURS NEEDED Active Atorvastatin Calcium 10 MG TAKE 1 TABLET BY MOUTH EVERY DAY FOR 90 DAYS Active Centrum Silver - as directed Orally Active dexAMETHasone 2 MG 1 tablet Orally twic e a day 07/07/2024 Active Gabapentin 300 MG 1 capsule Orally thr ee times a day 07/07/2024 Active diazePAM 5 MG 1 tablet as needed Orally Once a day 07/21/2024 Active Social History Tobacco Use: Social History Observation Description Date Details (start date - stop date) Former Smoker NA - NA Sex Assigned At : Social History Observation Description Sex Assigned At Male Tobacco Use/Smoking Question Answer Notes Patient is a former smoker How long has it been since you last smoked? > 10 years Additional Findings: Tobacco Non-User Ex-cigaret te smoker Encounters Encounter Location Date Provider Diagnosis Luiz Maguire III, MD [address] [place] [address] 08/04/2024 Luiz Maguire COPD (chronic obstructive pulmonary disease) J44.9 Assessments Encounter Date Diagnosis (ICD Code) Assessment Notes Treatment Notes Treatment Clinical Notes 08/04/2024 COPD (chronic obstructive pulmonary disease) (ICD-10 - J44.9) His breathing is unlabored and unrestricted. He has not smoked in a prolonged time. He is doing very well with respiration. Plan Of Treatment Medication Medication Name Sig Start Date Stop Date Notes EPINEPHrine 0.15 MG/0.3ML use one pen In jection for a bee sting 03/08/2024 traZODone HCl 150 MG TAKE 1 TABLET BY [facility] EVERYDAY AT BEDTIME Albuterol Sulfate HFA 108 (9 0 Base) MCG/ACT INHALE 1 PUFF BY MOUTH EVERY 4 HOURS NEEDED Atorvastatin Calcium 10 MG TAKE 1 TABLET BY MOUTH EVERY DAY FOR 90 DAYS Centrum Silver - as directed Orally dexAMETHasone 2 MG 1 tablet Orally twice a day 07/07/2024 Gabapentin 300 MG 1 capsule Orally thr ee times a day 07/07/2024 diazePAM 5 MG 1 tablet as needed O rally Once a day 07/21/2024 Next Appt Details Provider Name:Luiz Maguire , 09/11/2025 02:00:00 PM, [address] [facility] [place], [place], [address], Provider Name:Luiz Maguire , 03/15/2026 02:00:00 PM, [address] [facility] [place], [place], [place], [address], Progress Notes * Aakash CORONADODOB:1959 (65 yo M)Acc No.[id number]:08/04/2024 Progress Notes Patient: Aakash ANDERSON Provider: Sid Maguire MD :1960 A ge:64 Y S ex:Male Date:08/04/2024 Address:[facility] [address], [id number] Subjective: * Chief Complaints: * 1 . Follow up. * HPI: C OVID-19 Screening: Questions H ave you had any new onset fever, chills, cough, congestion, sore throat, shortness of breath, muscle aches? N o * ROS: G eneral/Constitutional: pain o nly normal aches and pains. C hills d enies.?Fatigue a dmits. F ever d enies. E NT: Decreased hearing d enies. R espiratory: Cough d enies. C ardiovascular: Chest pain with exertion d enies. D yspnea on exertion?denies. S hortness of breath d enies. G astrointestinal: Constipation d enies. D ecreased appetite d enies.?Diarrhea d enies. H eartburn d enies. N ausea d enies. R ectal bleeding?denies. V omiting d enies. H ematology: bruising [...] Depressed mood d enies. * Medical History: D iverticulitis, COPD, Former smoker, Anxiety, Gerd, Umbilical hernia, Polysubstance abuse, Lumbar radiculopathy, herpes zoster September 2016, Hearing loss right ear, Osteomyelitis right tibia 2020, Alcohol use disorderIn long-term recovery. * Surgical History: u mbilical herniorrhaphy 2011, compound fracture right femur, skin graft from right thigh 1980, blood clots removals 2019, Debridement osteomyelitis, right tibia 2020, No history . * Hospitalization/Major Diagno stic Procedure: N o history . * Family History: F ather: 81 yrs, [...] x-cigarette smoker Corinne watt has been to [place] for 23 years and not working. He has no toxic exposures. He enjoys poker, football. billiards, cribbage. He was born in [place], [place]. * Medications: T aking EPINEPHrine 0.15 MG/0.3ML Solution Auto-injector use one pen Injection for a bee sting , Taking traZODone HCl 150 MG Tablet TAKE 1 TABLET BY MOUTH EVERYDAY AT BEDTIME , Taking Atorvastatin Calcium 10 MG Tablet TAKE 1 TABLET BY MOUTH EVERY DAY FOR 90 DAYS , Taking Centrum Silver - Tablet as directed Orally , Taking Albuterol Sulfate HFA 108 (90 Base) MCG/ACT Aerosol Solution INHALE 1 PUFF BY MOUTH EVERY 4 HOURS NEEDED , Taking dexAMETHasone 2 MG Tablet 1 tablet Orally twice a day , Taking Gabapentin 300 MG Capsule 1 capsule Orally three times a day , Taking diazePAM 5 MG Tablet 1 tablet as needed Orally Once a day , Medication List reviewed and reconciled with the patient * Allergies: V icodin, scallops, Bee Sting: anaphylaxis - Allergy - Criticality High - Onset Date 10/18/2019. Objective: * Vitals: * Examination: G eneral Examination: GENERAL APPEARANCE: p leasant, well nourished, well developed, in no acute distress, calm and relaxed. HEAD: a traumatic, normocephalic. EYES: e jann, perrla, anicteric, conjugate. EARS: n ormal. NOSE: s eptum intact. ORAL CAVITY: n ormal, unremarkable. NECK/THYROID: n o jugular venous distention, no carotid bruit, thyroid normal. LYMPH NODES: n o enlarged lymph nodes,spleen [...] e xtremities unremarkable, no clubbing, cyanosis or edema. PERIPHERAL PULSES: n ormal. NEUROLOGIC: a lert and oriented, cranial nerves 2-12 grossly intact, deep tendon reflexes 2+ symmetrical, motor strength normal upper and lower extremities, sensory exam intact. PSYCH: a lert, oriented. Assessment: * Assessment: 1. C OPD (chronic obstructive pulmonary disease) - J44.9 N otes :His breathing is unlabored and unrestricted. He has not smoked in a prolonged time. He is doing very well with respiration. Plan: * Treatment: 2. O thers Continue EPINEPHrine Solution Auto-injector, 0.15 MG/0.3ML, use one pen, Injection, for a bee sting. * Images: * The named appointment provid er may or may not be the originator of this progress note, and it is not deemed complete until electronically signed by the appointment provider. Sign off status: Pending * Provider: Sid Maguire MD Date: 0 08/04/2024 Generated for Taco cavanaugh/Negrito/Teenaitting on: 1 06/11/2024 08:37 AM EST History [...]
--- OUTSIDE RECORDS SUMMARY | 2024-08-18 06:00 | XMS_ITS ---
Author Organization Luiz Maguire III, MD Address [address] [place] [address] [place] [address] Care Team Providers Care Gang Ripsaw Operator Name Role Phone Dr. Luiz Maguire III Primary Care Provider Allergies Allergen (clinical drug ingredient) Drug/Non Drug Allergy documented on EMR Reaction Allergy Type Onset Date Status Vicodin Unknown Drug Allergy Active Shellfish (FN) scallops (uncoded) Unknown Allergy Active Bee Sting anaphylaxis Allergy 10/18/2019 Active REASON FOR VISIT Left shoulder pain, COPD, Lumbar radiculopathy, Hyperlipidemia, GERD, Benign prostatic hypertrophy,Bilateral hearing loss Medications Medication SIG (Take, Route, Frequency, Duration) Notes Start Date End Date Status Atorvastatin Calcium 10 MG TAKE 1 TABLET BY MOUTH EVERY DAY FOR 90 DAYS Active Centrum Silver - as directed Orally Active Albuterol Sulfate HFA 108 (90 Base) MCG/ACT INHALE 1 PUFF BY MOUTH EVERY 4 HOURS Inhalation every 4 hrs for 30 days Active Gabapentin 300 MG 1 capsule Orally thr ee times a day 07/07/2024 Active EPINEPHrine 0.15 MG/0.3ML use one pen In jection for a bee sting 03/08/2024 Active traZODone HCl 150 MG TAKE 1 TABLET BY [facility] EVERYDAY AT BEDTIME Active Social History Tobacco [...] Non-User Ex-cigaret te smoker Vital Signs Temperature 97.6 degrees Fahrenheit 08/19/19 Blood pressure systolic 128 mm Hg 08/19/19 Blood pressure diastolic 74 mm Hg 025 Heart Rate 66 /min 08/18/2024 Height 69 in 08/18/2024 Weight 146 lbs 08/18/2024 BMI 21.56 kg/m2 08/18/2024 Encounters Encounter Location Date Provider Diagnosis Luiz Maguire III, MD [address] [place] [address] [place] [address] 08/18/2024 Luiz Maguire COPD (chronic obstructive pulmonary disease) J44.9 ; Cervical radiculopathy M54.12 ; GERD (gastroesophageal reflux disease) K21.9 ; Former smoker Z87.891 ; BPH (benign prostatic hyperplasia) N40.0 ; Subacute osteomyelitis of right tibia M86.261 and Bilateral hearing loss, unspecified hearing loss type H91.93 Assessments Encounter Date Diagnosis (ICD Code) Assessment Notes Treat ment Notes Treatment Clinical Notes 08/18/2024 COPD (chronic obstructive pulmonary disease) (ICD-10 - J44.9) His breathing is unlabored and unrestricted. He has not smoked in a prolonged time. He is doing very well with respiration. 08/18/2024 Cervical radiculopathy (ICD-10 - M54.12) He is waiting to see paain management for injections. This is unsuccessful I will see about a neurosurgical consultation. His symptoms are significant at this time but not life-threatening. 08/18/2024 GERD (gastroesophageal reflux disease) (ICD-10 - K21.9) His reflux symptoms are well controlled with medication. He is sleeping through the night usually. No change in his medication was necessary 08/18/2024 Former smoker (ICD-10 - Z87.891) He seems highly motivated not to smoke. His COPD has improved. He has a strategy to prevent relapse in times of stress and illness. 08/18/2024 BPH (benign prostatic hyperplasia) (ICD-10 - N40.0) He rises from sleep once a night to urinate. We have discussed lifestyle modification as a way to reduce nocturia. 08/18/2024 Subacute osteomyelitis of right tibia (ICD-10 - M86.261) The drainage is minimal. He will continue with current therapy and will be observed. The wound care clinic has been involved. 08/18/2024 Bilateral hearing loss, unspecified hearing loss type (ICD-10 - H91.93) He reports no change in his hearing. Plan Of Treatment Medication Medication Name Sig Start Date Stop Date Notes Atorvastatin Calcium 10 MG TAKE 1 TABLET BY MOUTH EVERY DAY FOR 90 DAYS Centrum Silver - as directed Orally Albuterol Sulfate HFA 108 (9 0 Base) MCG/ACT INHALE 1 PUFF BY MOUTH EVERY 4 HOURS Inhalation every 4 hrs for 30 days Gabapentin 300 MG 1 capsule Orally thr ee times a day 07/07/2024 EPINEPHrine 0.15 MG/0.3ML use one pen In jection for a bee sting 03/08/2024 traZODone HCl 150 MG TAKE 1 TABLET BY [facility] EVERYDAY AT BEDTIME Next Appt Details Follow Up: 2 Months, Reason: OV Provider Name:Luiz Maguire , 09/11/2025 02:00:00 PM, [address] [place] [address] [address], [place], [address], Provider Name:Luiz Maguire , 03/15/2026 02:00:00 PM, [address] [place] [address] [address], [place], [address], Progress Notes * Aakash CORONADODOJamey:1959 (64 yo M)Acc No.[id number]:08/18/2024 Progress Notes Patient: Aakash ANDERSON Provider: Sid Maguire MD :1960 A ge:64 Y S ex:Male Date:08/18/2024 Address:[place], [id number] Subjective: * Chief Complaints: * L eft shoulder painCOPDLumbar radiculopathyHyperlipidemiaGERDBenign prostatic hypertrophyBilateral hearing loss * HPI: C OVID-19 Screening: He returns for management of his medical issues. His chief complaint lately has been left shoulder pain. He has been referred to pain management for injections. Pain is slightly better at this time. He has no new complaints. He is comfortable breathing room air and has had no exacerbations of COPD. His hearing loss is unchanged. He has no new skin lesions. He has occasional pain in his cervical spine and lumbar spine with motion.The MRI of his cervical spine that was done in June 2024 showed multilevel cervical spondylosis causing stenosis of the spinal canal from C2-C7. There was bilateral neuroforaminal stenosis at C3 him primarily at C6-7. His complaints of pain are left axilla and left shoulder. He has yet to see pain management but that vissit his upcoming. The radiologist commented on an abnormal appearance of the bone marrow in the neck. Peripheral blood counts are unremarkable as are his chemistries. Will be observed for any possible hematologic abnormality developing. Questions H ave you had any new onset fever, chills, cough, congestion, sore throat, shortness of breath, muscle aches? N o * ROS: G eneral/Constitutional: pain L eft shoulder and left axilla with range of motion of the shoulder and neck, low back pain. C hills d enies. F atigue a dmits. F ever?denies. E NT: Decreased hearing i n both ears. R espiratory: Cough d enies. C ardiovascular: [...] enies.?Headache d enies. L ow back pain t hat is chronic. P sychiatric: Depressed mood d enies. * [...] dditional Findings: Tobacco Non-User E x-cigarette smoker H e has been to [place] for 23 years and not working. He has no toxic exposures. He enjoys poker, football. [employer], cribbage. He was born in [place], [place]. * Medications: T akingEPINEPHrine 0.15 MG/0.3ML [...] PUFF BY MOUTH EVERY 4 HOURS NEEDED Gabapentin 300 MG Capsule 1 capsule Orally [...] BY MOUTH EVERY 4 HOURS NEEDED Taking Gabapentin 300 MG Capsule 1 capsule Orally three times a day DiscontinueddexAMETHasone 2 MG Tablet 1 tablet Orally twice a day diazePAM 5 MG Tablet 1 tablet as needed Orally Once a day Medication List reviewed and reconciled with the patientDiscontinued dexAMETHasone 2 MG Tablet 1 tablet Orally twice a day Discontinued diazePAM 5 MG Tablet 1 tablet as needed Orally Once a day Medication List reviewed and reconciled with the patient * Allergies: V icodinscallopsBee Sting: anaphylaxis - Allergy - Criticality High - Onset Date 10/18/2019no[Allergies Verified] Objective: * Vitals: H t: 69, Wt: 146, BMI:21.56, BP: 128/74, HR: 66, Temp: 97.6, Ht-cm: 175.26, Wt-k.22. * P ast Orders: I maging:XR chest [...] & Time - 06/27/2024 11:01 AM)?ValueReference Range?Lactate Mbrweapxbyiis535 [id number] - U/L * Lab:[facility] [place]. Same l Fast * Collection Date 06/27/2024 [...] - 06/27/2024 11:01 AM)?ValueReference Range?D Dimer High [id number]- NG/ML * Examination: G eneral Examination: GENERAL APPEARANCE: p leasant, well nourished, well developed, in no acute distress, calm and relaxed, man. HEAD: a traumatic, normocephalic. EYES: e jann, perrla, anicteric, conjugate. EARS: n ormal. NOSE: s eptum intact. ORAL CAVITY: n ormal, unremarkable. NECK/THYROID: n o jugular venous distention, no carotid bruit, thyroid normal, [place] range of motion which radiates into the shoulder left axilla and upper left thoracic wall. LYMPH NODES: n o enlarged lymph nodes,spleen [...] xtremities unremarkable, no clubbing, cyanosis or edema, [place] range of motion of neck and lumbar spine, surgical defect right tibia. PERIPHERAL PULSES: n ormal. NEUROLOGIC: a lert and oriented, cranial nerves 2-12 grossly intact, deep tendon reflexes 2+ symmetrical, motor strength normal upper and lower extremities, sensory exam intact. PSYCH: a lert, oriented. Assessment: * Assessment: 1. C ervical radiculopathy - M54.12 (Primary) N otes :He is waiting to see paain management for injections. This is unsuccessful I will see about a neurosurgical consultation. His symptoms are significant at this time but not life-threatening. 2 . C OPD (chronic obstructive pulmonary [...] in his medication was necessary 4 . F ormer smoker - Z87.891 N otes :He seems highly motivated not to smoke. His COPD has improved. He has a strategy to prevent relapse in times of stress and illness. 5 . B PH (benign prostatic hyperplasia) - N40.0 N otes :He rises from sleep once a night to urinate. We have discussed lifestyle modification as a way to reduce nocturia. 6 . S ubacute osteomyelitis of right tibia - M86.261 N otes :The drainage is minimal. He will continue with current therapy and will be observed. The wound care clinic has been involved. 7 . B ilateral hearing loss, unspecified hearing loss type - H91.93 N otes :He reports no change in his hearing. Plan: * Treatment: 2. O thers Continue EPINEPHrine Solution Auto-injector, 0.15 MG/0.3ML, use one pen, Injection, for a bee sting. * Procedure Codes: * Preventive Medicine: Counseling: S moking/Tobacco Use Patient counseled on the dangers of tobacco use and urged to quit. 0 08/18/2024 * Follow Up: 2 Months (Reason: OV) * Images: * Sign off status: Completed true * Provider: Sid Maguire MD Date: 0 08/18/2024 Generated for Taco cavanaugh/Negrito/Ariasmitting on: 1 06/11/2024 [...] di stention, no carotid bruit, thyroid normal, [place] range of motion which radiates into the shoulder left axilla and upper left thoracic wall HEART: no clicks, gallops, murmurs, or rubs, [...] unremark able, no clubbing, cyanosis or edema, [place] range of motion of neck and lumbar spine, surgical defect right tibia LYMPH NODES: no enlarged lymph no cipriano,spleen normal RECTAL EXAM: not examined PSYCH: alert, oriented ORAL CAVITY: normal, unremarkable
--- OUTSIDE RECORDS SUMMARY | 2024-10-18 10:00 | XMS_ITS ---
Author Organization Luiz Maguire III, MD Address [address] [place] [address] [place] [address] Care Team Providers Care Rehabilitation Consultant Name Role Phone Dr. Luiz Maguire III Primary Care Provider Allergies Allergen (clinical drug ingredient) Drug/Non Drug Allergy documented on EMR Reaction Allergy Type Onset Date Status Vicodin Unknown Drug Allergy Active Shellfish (FN) scallops (uncoded) Unknown Allergy Active Bee Sting anaphylaxis Allergy 10/18/2019 Active REASON FOR VISIT Right axillary mass, History of osteomyelitis right tibia, COPD, Lumbar radiculopathy, Hyperlipidemia, GERD Medications Medication SIG (Take, Route, Frequency, Duration) Notes Start Date End Date Status traZODone HCl 150 MG TAKE 1 TABLET BY [facility] EVERYDAY AT BEDTIME Active Albuterol Sulfate HFA 108 (90 Base) MCG/ACT INHALE 1 PUFF BY MOUTH EVERY 4 HOURS Inhalation every 4 hrs Active Gabapentin 300 MG 1 capsule Orally thr ee times a day 07/07/2024 Active Atorvastatin Calcium 10 MG TAKE 1 TABLET BY MOUTH EVERY DAY FOR 90 DAYS Active Centrum Silver - as directed Orally Active EPINEPHrine 0.15 MG/0.3ML use one pen [...] Non-User Ex-cigaret te smoker Vital Signs Temperature 98.2 degrees Fahrenheit 10/19/19 Blood pressure systolic 129 mm Hg 10/19/19 Blood pressure diastolic 68 mm Hg 025 Heart Rate 57 /min 10/18/2024 Height 69 in 10/18/2024 Weight 140 lbs 10/18/2024 BMI 20.67 kg/m2 10/18/2024 Encounters Encounter Location Date Provider Diagnosis Luiz Maguire III, MD [address] [place] [address] [place] [address] 10/18/2024 Luiz Maguire COPD (chronic obstructive pulmonary disease) J44.9 ; GERD (gastroesophageal reflux disease) K21.9 ; Depression F32.9 ; Anxiety disorder due to multiple medical problems F06.8 ; Umbilical hernia K42.9 ; Subacute osteomyelitis of right tibia M86.261 ; Basal cell carcinoma of face C44.310 ; Bilateral hearing loss, unspecified hearing loss type H91.93 ; Benign prostatic hyperplasia, unspecified whether lower urinary tract symptoms present N40.0 and Former smoker Z87.891 Assessments Encounter Date Diagnosis (ICD Code) Assessment Notes Treat ment Notes Treatment Clinical Notes 10/18/2024 COPD (chronic obstructive pulmonary disease) (ICD-10 - J44.9) His breathing is unlabored and unrestricted. He has not smoked in a prolonged time. He is doing very well with respiration. 10/18/2024 GERD (gastroesophageal reflux disease) (ICD-10 - K21.9) His reflux symptoms are well controlled with medication. He is sleeping through the night usually. No change in his medication was necessary 10/18/2024 Depression (ICD-10 - F32.9) His depression was very minimal today. He continued on current therapy. 10/18/2024 Anxiety disorder due to multiple medical problems (ICD-10 - F06.8) His anxiety is stable at this time and he is coping with it. 10/18/2024 Umbilical hernia (ICD-10 - K42.9) This was repaired in the past and is asymptomatic at the current time. 10/18/2024 Subacute osteomyelitis of right tibia (ICD-10 - M86.261) The drainage is minimal. He will continue with current therapy and will be observed. The wound care clinic has been involved. 10/18/2024 Basal cell carcinoma of face (ICD-10 - C44.310) This is being treated. 10/18/2024 Bilateral hearing loss, unspecified hearing loss type (ICD-10 - H91.93) He reports no change in his hearing. 10/18/2024 Benign prostatic hyperplasia, unspecified whether lower urinary tract symptoms present (ICD-10 - N40.0) He rises at most once a night to urinate depending upon fluid intake. We have discussed lifestyle modification as a way to reduce nocturia. 10/18/2024 Former smoker (ICD-10 - Z87.891) He seems highly motivated not to smoke. His COPD has improved. He has a strategy to prevent relapse in times of stress and illness. Plan Of Treatment Medication Medication Name Sig Start Date Stop Date Notes traZODone HCl 150 MG TAKE 1 TABLET BY [facility] EVERYDAY AT BEDTIME Albuterol Sulfate HFA 108 (9 0 Base) MCG/ACT INHALE 1 PUFF BY MOUTH EVERY 4 HOURS Inhalation every 4 hrs Gabapentin 300 MG 1 capsule Orally thr ee times a day 07/07/2024 Atorvastatin Calcium 10 MG TAKE 1 TABLET BY MOUTH EVERY DAY FOR 90 DAYS Centrum Silver - as directed Orally EPINEPHrine 0.15 MG/0.3ML use one pen In jection for a bee sting 03/08/2024 Next Appt Details Follow Up: As Scheduled, Adenike son: Annual Exam Provider Name:Luiz Maguire , 09/11/2025 02:00:00 PM, [address] [place] [address] [address], [place], [address], Provider Name:Luiz Maguire , 03/15/2026 02:00:00 PM, [address] [place] [address] [address], [place], [address], Progress Notes * Aakash CORONADODOB:1959 (64 yo M)Acc No.[id number]:10/18/2024 Progress Notes Patient: Aakash ANDERSON Provider: Sid Maguire MD :1960 A ge:64 Y S ex:Male Date:10/18/2024 Address:[facility] [address] [place], [id number] Subjective: * Chief Complaints: * R ight axillary massHistory of osteomyelitis right tibiaCOPDLumbar radiculopathyHyperlipidemiaGERD * HPI: C OVID-19 Screening: He has recently begun an exercise regimen. He has been doing pushups and planking and other muscle building endeavors. He reports nocturia once a night. The pain in his neck is mild but present and has not channged. There has been no discharge from the defect in the skin in the right leg over the tibia. He recently noticed a lump in his right axilla and asked for an evaluation. On examination this is the belly of a muscle which has become prominent from the exercise. No adenoopathy was noted.He was reassured. Questions H ave you had any new [...] x-cigarette smoker H e has been to [employer] for 23 years and not working. He has no toxic exposures. He enjoys poker, football. [employer], cribbage. He was born in [place], [place]. * Medications: T akingEPINEPHrine 0.15 MG/0.3ML [...] EVERY 4 HOURS Inhalation every 4 hrs Gabapentin 300 MG Capsule 1 capsule Orally three times a day Medication List reviewed and reconciled with the patientTaking EPINEPHrine 0.15 MG/0.3ML Solution Auto-injector use one [...] EVERY 4 HOURS Inhalation every 4 hrs Taking Gabapentin 300 MG Capsule 1 capsule Orally three times a day Medication List reviewed and reconciled with the patient * Allergies: V icodinscallopsBee Sting: anaphylaxis - Allergy - Criticality High - Onset Date 10/18/2019no[Allergies Verified] Objective: * Vitals: H t: 69, Wt: 140, BMI:20.67, BP: 129/68, HR: 57, Temp: 98.2, Ht-cm: 175.26, Wt-k.5. * Examination: G eneral Examination: GENERAL APPEARANCE: [...] nodes,spleen normal. SKIN: n o suspicious lesions, anicteric, Lipoma on back.? HEART: n o clicks, gallops, murmurs, or rubs, regular rhythm, S1, S2 normal, no s3, or vascular bruits. LUNGS: c lear to auscultation . BREASTS: no masses palpable bilaterally. ABDOMEN: b owel sounds normal, no ascites, no organomegaly, no mass, Stable umbilical hernia. RECTAL EXAM: n ot examined. MUSCULOSKELETAL: e xtremities unremarkable, no clubbing, cyanosis or edema, Long surgical incision over right tibia surgical defect in the midportion, wound is dry without discharge. PERIPHERAL PULSES: n ormal. NEUROLOGIC: a lert and oriented, cranial nerves 2-12 grossly intact, deep tendon reflexes 2+ symmetrical, motor strength normal upper and lower extremities, sensory exam intact. PSYCH: a lert, oriented. Assessment: * Assessment: 1. C OPD (chronic obstructive pulmonary disease) - J44.9 (Primary) N otes :His breathing is unlabored and unrestricted. He has not smoked in a prolonged time. He is doing very well with respiration. 2 . G ERD (gastroesophageal reflux disease) - K21.9 N otes :His reflux symptoms are well controlled with medication. He is sleeping through the night usually. No change in his medication was necessary 3 . D epression - F32.9 N otes :His depression was very minimal today. He continued on current therapy. 4 . A nxiety disorder due to multiple medical problems - F06.8 ?Notes :His anxiety is stable at this time and he is coping with it. 5 . U mbilical hernia - K42.9 N otes :This was repaired in the past and is asymptomatic at the current time. 6 . S ubacute osteomyelitis of right tibia - M86.261 N otes :The drainage is minimal. He will continue with current therapy and will be observed. The wound care clinic has been involved. 7 . B vidya cell carcinoma of face - C44.310 N otes :This is being treated. 8 . B ilateral hearing loss, unspecified hearing loss type - H91.93 N otes :He reports no change in his hearing. 9 . B enign prostatic hyperplasia, unspecified whether lower urinary tract symptoms present - N40.0 N otes :He rises at most once a night to urinate depending upon fluid intake. We have discussed lifestyle modification as a way to reduce nocturia. 1 0. F ormer smoker - Z87.891 N otes :He seems highly motivated not to smoke. His COPD has improved. He has a strategy to prevent relapse in times of stress and illness. Plan: * Treatment: 2. O thers Continue EPINEPHrine Solution Auto-injector, 0.15 MG/0.3ML, use one pen, Injection, for a bee sting. * Procedure Codes: * Preventive Medicine: Counseling: S moking/Tobacco Use Patient counseled on the dangers of tobacco use and urged to quit. 0 10/18/2024 COPD Care Plan: P atient Lifestyle Goals B e able to be more active with friends and family, Reduce number of ED and hospitalizations, Relieve symptoms and improve quality of life. T reatment Goals E xercise to help whole body, including lungs, Eat a nutritious diet and increase water consumption to 6-8 glasses a day. B arriers n o barriers. S elf-Managment Goals E at a healthy diet, Get an air purifier for the rooms you are in the most. * Follow Up: A s Scheduled (Reason: Annual Exam) * Images: * Sign off status: Completed true * Provider: Sid Maguire MD Date: 0 10/18/2024 Generated for Taco cavanaugh/Negrito/Teenaitting on: 06/11/2024 08:37 AM EST History and Physical [...] sounds normal, no ascites, no organomegaly, no mass, Stable umbilical hernia NEUROLOGIC: alert and oriented, cranial nerves 2-12 grossly intact, deep tendon reflexes 2+ symmetrical, motor strength normal upper and lower extremities, sensory exam intact SKIN: no suspicious lesion s, anicteric, Lipoma on back PERIPHERAL PULSES: normal BREASTS: no masses palpable b ilaterally MUSCULOSKELETAL: extremities unremark able, no clubbing, cyanosis or edema, Long surgical incision over right tibia surgical defect in the midportion, wound is dry without discharge LYMPH NODES: no enlarged lymph no cipriano,spleen normal RECTAL EXAM: not examined PSYCH: alert, oriented ORAL CAVITY: normal, unremarkable
--- OUTSIDE RECORDS SUMMARY | 2024-11-29 08:16 | XMS_ITS ---
Author Organization Luiz Maguire III, MD Address [address] [place] [address] [place] [address] Care Team Providers Care Net Developer Consultant Name Role Phone Dr. Luiz Maguire III Primary Care Provider REASON FOR VISIT severe shoulder pain Social History Sex Assigned At : Social History Observation Description Sex Assigned At Male Encounters Encounter Location Date Provider Diagnosis Luiz Maguire III, MD [address] [place] [address] [place] [address] 11/29/2024 Luiz Maguire Plan Of Treatment Next Appt Details Provider Name:Luiz Maguire , 09/11/2025 02:00:00 PM, [address] [place] [address] [place], [address], Provider Name:Luiz Maguire , 03/15/2026 02:00:00 PM, [address] [place] [address] [address], [address], [place], [address], Progress Notes * Aakash CORONADODOB:1959 (64 yo M)Acc No.[id number]:11/29/2024 Patient: Pooja Aakash TRACEY :1960 A ge:64 Y S ex:Male Address:[facility] [place] [address] * true * Date: Generated for Taco cavanaugh/eNgrito/eTransmitting on: 06/11/2024 08:35 AM EST
--- OUTSIDE RECORDS SUMMARY | 2024-11-29 08:45 | XMS_ITS ---
Author Organization Luiz Maguire III, MD Address [address] [place] [address] [place] [address] Care Team Providers Care Rn Corrections Name Role Phone Dr. Luiz Maguire III Primary Care Provider [phone] Allergies Allergen (clinical drug ingredient) Drug/Non Drug Allergy documented on EMR Reaction Allergy Type Onset Date Status Vicodin Unknown Drug Allergy Active Shellfish (FN) scallops (uncoded) Unknown Allergy Active Bee Sting anaphylaxis Allergy 10/18/2019 Active REASON FOR VISIT Tendinitis right ankle, COPD, Depression, Lumbar radiculopathy, Hyperlipidemia, Benign prostatic hypertrophy Medications Medication SIG (Take, Route, Frequency, Duration) Notes Start Date End Date Status Gabapentin 300 MG 1 capsule Orally thr ee times a day 07/07/2024 Active Albuterol Sulfate HFA 108 (90 Base) MCG/ACT INHALE 1 PUFF BY MOUTH EVERY 4 HOURS Inhalation every 4 hrs Active traZODone HCl 150 MG TAKE 1 TABLET BY [facility] EVERYDAY AT BEDTIME Active Centrum Silver - as directed Orally [...] Additional Findings: Tobacco Non-User Ex-cigaret te smoker Problems Problem Type SNOMED Code ICD Code Onset Dates Problem Status W/U Status Risk Notes Problem [id number] Acute pain of left shoulder (M25.512) Active confirmed The shoulder pain is rapidly resolving and he will resume normali activity 1 week.t. Vital Signs Temperature 98.8 degrees Fahrenheit 11/30/19 25 Blood pressure systolic 118 mm Hg 11/30/19 25 Blood pressure diastolic 65 mm Hg 025 Heart Rate 56 /min 11/29/2024 Height 69 in 11/29/2024 Weight 139 lbs 11/29/2024 BMI 20.52 kg/m2 11/29/2024 Encounters Encounter Location Date Provider Diagnosis Luiz Maguire III, MD [address] [place] [address] [place] [phone] 11/29/2024 Luiz Maguire COPD (chronic obstructive pulmonary disease) J44.9 ; Acute pain of left shoulder M25.512 ; Depression F32.9 ; GERD (gastroesophageal reflux disease) K21.9 ; Mixed hyperlipidemia E78.2 ; Lumbosacral radiculopathy M54.17 ; Benign prostatic hyperplasia, unspecified whether lower urinary tract symptoms present N40.0 ; Bilateral hearing loss, unspecified hearing loss type H91.93 and Former smoker Z87.891 Assessments Encounter Date Diagnosis (ICD Code) Assessment Notes Treat ment Notes Treatment Clinical Notes 11/29/2024 COPD (chronic obstructive pulmonary disease) (ICD-10 - J44.9) His breath sounds are diminished and there were a few inspiratory wheezes today but he is comfortable breathing room air. We encouraged him to stop smoking. He will continue on current medications without change. 11/29/2024 Acute pain of left shoulder (ICD-10 - M25.512) The pain in the shoulder is of long-standing recently worse. An x-ray was obtained but not yet read and he will be referred to orthopedic surgery for evaluation and treatment. 11/29/2024 Depression (ICD-10 - F32.9) His depression was very minimal today. He continued on current therapy. 11/29/2024 GERD (gastroesophageal reflux disease) (ICD-10 - K21.9) His reflux symptoms are well controlled with medication. He is sleeping through the night usually. No change in his medication was necessary 11/29/2024 Mixed hyperlipidemia (ICD-10 - E78.2) His lipid values have been in the normal range.. We discussed diet and nutrition and the elements of a low animal fat diet today. Comprehensive blood work with a fasting lipid profile has been orderedHis HDL is 88, LDL 129 and total cholesterol 238. We discussed cholesterol reduction strategy at length. 11/29/2024 Lumbosacral radiculopathy (ICD-10 - M54.17) Low back pain is now minimal. He is avoiding heavy lifting and undue exertion. 11/29/2024 Benign prostatic hyperplasia, unspecified whether lower urinary tract symptoms present (ICD-10 - N40.0) He rises at most once a night to urinate depending upon fluid intake. We have discussed lifestyle modification as a way to reduce nocturia. 11/29/2024 Bilateral hearing loss, unspecified hearing loss type (ICD-10 - H91.93) He reports no change in his hearing. 11/29/2024 Former smoker (ICD-1 0 - Z87.891) He seems highly motivated not to smoke. His COPD has improved. He has a strategy to prevent relapse in times of stress and illness. Plan Of Treatment Medication Medication Name Sig Start Date Stop Date Notes Gabapentin 300 MG 1 capsule Orally thr ee times a day 07/07/2024 Albuterol Sulfate HFA 108 (9 0 Base) MCG/ACT INHALE 1 PUFF BY MOUTH EVERY 4 HOURS Inhalation every 4 hrs traZODone HCl 150 MG TAKE 1 TABLET BY [facility] EVERYDAY AT BEDTIME Centrum Silver - as directed Orally Atorvastatin Calcium 10 MG TAKE 1 TABLET BY MOUTH EVERY DAY FOR 90 DAYS EPINEPHrine 0.15 MG/0.3ML use one pen In jection for a bee sting 03/08/2024 Pending Test Test Name Order Date XR SHOULDER LT 2 VIEWS 11/29/2024 Next Appt Details Follow Up: 7 days, Reason: T V Provider Name:Luiz Maguire , 09/11/2025 02:00:00 PM, [address] [facility] [address], [place], [address], Provider Name:Luiz Maguire , 03/15/2026 02:00:00 PM, [address] [facility] [address], [place], [address], Progress Notes * Aakash CORONADODOB:1959 (64 yo M)Acc No.[id number]:11/29/2024 Patient: Aakash ANDERSON Provider: Sid Maguire MD :1960 A ge:64 Y S ex:Male Date:11/29/2024 Address:[address] [place] [address] Joaquin MERCHANT YANIRA [id number] Subjective: * Chief Complaints: * T endinitis right ankleCOPDDepressionLumbar radiculopathyHyperlipidemiaBenign prostatic hypertrophy * HPI: C OVID-19 Screening: He woke up yesterday morning with severe pain in the lateral portion of his right shoulder at the convexity of the humerus. It is not painful if he does not move it but it hurts very badly with weightbearing or lifting. On examination today it appeared to be the tendons supplying the shoulder. He was referred to orthopedics. X-ray was ordered. He is going to use a heating pad and ibuprofen.HeHe reports that he has had no trauma or strain recently. Questions H ave you had any new onset fever, chills, cough, congestion, sore throat, shortness of breath, muscle aches? N o * ROS: G eneral/Constitutional: pain R ight shoulder. C hills d enies. F atigue?admits. F ever d enies. E NT: Decreased [...] Muscle aches d enies. P ainful joints R ight shoulder. S ciatica d enies. W eakness [...] x-cigarette smoker Corinne watt has been to [employer] for 23 years and not working. He has no toxic exposures. He enjoys poker, football. billiards, cribbage. He was born in [place], [place]. * Medications: T akingEPINEPHrine 0.15 MG/0.3ML Solution Auto-injector use one pen Injection for a bee sting Atorvastatin Calcium 10 MG Tablet TAKE 1 TABLET BY MOUTH EVERY DAY FOR 90 DAYS Centrum Silver - Tablet as directed Orally Albuterol Sulfate HFA 108 (90 Base) MCG/ACT Aerosol Solution INHALE 1 PUFF BY MOUTH EVERY 4 HOURS Inhalation every 4 hrs Gabapentin 300 MG Capsule 1 capsule Orally three times a day traZODone HCl 150 MG Tablet TAKE 1 TABLET BY MOUTH EVERYDAY AT BEDTIME Medication List reviewed and reconciled with the patientTaking EPINEPHrine 0.15 MG/0.3ML Solution Auto- injector use one pen Injection for a bee sting Taking Atorvastatin Calcium 10 MG Tablet TAKE 1 TABLET BY MOUTH EVERY DAY FOR 90 DAYS Taking Centrum Silver - Tablet as directed Orally Taking Albuterol Sulfate HFA 108 (90 Base) MCG/ACT Aerosol Solution INHALE 1 PUFF BY MOUTH EVERY 4 HOURS Inhalation every 4 hrs Taking Gabapentin 300 MG Capsule 1 capsule Orally three times a day Taking traZODone HCl 150 MG Tablet TAKE 1 TABLET BY MOUTH EVERYDAY AT BEDTIME Medication List reviewed and reconciled with the patient * Allergies: V icodinscallopsBee Sting: anaphylaxis - Allergy - Criticality High - Onset Date 10/18/2019no[Allergies Verified] Objective: * Vitals: H t: 69, Wt: 139, BMI:20.52, BP: 118/65, HR: 56, Temp: 98.8, Ht-cm: 175.26, Wt-k.05. * Examination: G eneral Examination: GENERAL APPEARANCE: p leasant, well nourished, well developed, in no acute distress, calm and relaxed: man. HEAD: a traumatic, normocephalic. EYES: e [...] normal, no s3, or vascular bruits. LUNGS: : diminished breath sounds throughout: good air movement. BREASTS: no masses palpable bilaterally. ABDOMEN: b owel sounds normal, no ascites, no organomegaly, no mass. RECTAL EXAM: n ot examined. MUSCULOSKELETAL: e xtremities unremarkable, no clubbing, cyanosis or edema, Severe pain to elevation of the right shoulder, long scar anterior right tibia.? PERIPHERAL PULSES: n ormal. NEUROLOGIC: a lert and oriented, cranial nerves 2-12 grossly intact, deep tendon reflexes 2+ symmetrical, motor strength normal upper and lower extremities, sensory exam intact. PSYCH: a lert, oriented. Assessment: * Assessment: 1. A cute pain of left shoulder - M25.512 (Primary) N otes :The pain in the shoulder is of long-standing recently worse. An x-ray was obtained but not yet read and he will be referred to orthopedic surgery for evaluation and treatment. 2 . C OPD (chronic obstructive pulmonary disease) - J44.9 N otes :His breath sounds are diminished and there were a few inspiratory wheezes today but he is comfortable breathing room air. We encouraged him to stop smoking. He will continue on current medications without change. 3 . D epression - F32.9 N otes :His depression was very minimal today. He continued on current therapy. 4 . G ERD (gastroesophageal reflux disease) - K21.9 N otes :His reflux symptoms are well controlled with medication. He is sleeping through the night usually. No change in his medication was necessary 5 . M ixed hyperlipidemia - E78.2 N otes :His lipid values have been in the normal range.. We discussed diet and nutrition and the elements of a low animal fat diet today. Comprehensive blood work with a fasting lipid profile has been orderedHis HDL is 88, LDL 129 and total cholesterol 238. We discussed cholesterol reduction strategy at length. 6 . L umbosacral radiculopathy - M54.17 N otes :Low back pain is now minimal. He is avoiding heavy lifting and undue exertion. 7 . B enign prostatic hyperplasia, unspecified whether lower urinary tract symptoms present - N40.0 N otes :He rises at most once a night to urinate depending upon fluid intake. We have discussed lifestyle modification as a way to reduce nocturia. 8 . B ilateral hearing loss, unspecified hearing loss type - H91.93 N otes :He reports no change in his hearing. 9 . F ormer smoker - Z87.891 N otes :He seems highly motivated not to smoke. His COPD has improved. He has a strategy to prevent relapse in times of stress and illness. Plan: * Treatment: 2. C OPD (chronic obstructive pulmonary disease) Continue Atorvastatin Calcium Tablet, 10 MG, TAKE 1 TABLET BY MOUTH EVERY DAY FOR 90 DAYS; C ontinue Centrum Silver Tablet, -, as directed, Orally; C ontinue Albuterol Sulfate HFA Aerosol Solution, 108 (90 Base) MCG/ACT, INHALE 1 PUFF BY MOUTH EVERY 4 HOURS, Inhalation, every 4 hrs; C ontinue Gabapentin Capsule, 300 MG, 1 capsule, Orally, three times a day; C ontinue traZODone HCl Tablet, 150 MG, TAKE 1 TABLET BY MOUTH EVERYDAY AT BEDTIME. 3. O thers Continue EPINEPHrine Solution Auto-injector, 0.15 MG/0.3ML, use one pen, Injection, for a bee sting. * Procedure Codes: * Preventive Medicine: COPD Care Plan: P atient Lifestyle Goals R elieve symptoms and improve quality of life, Reduce number of ED and hospitalizations, Be able to be more active with friends and family. T reatment Goals E at a nutritious diet and increase water consumption to 6-8 glasses a day. B arriers n o barriers. S elf-Managment Goals E at a healthy diet. * Follow Up: 7 days (Reason: TV) * Images: * Sign off status: Completed true * Provider: Sid Maguire MD Date: 0 11/29/2024 Generated for Tcao cavanaugh/Negrito/Teenaitting on: 1 06/11/2024 08:36 AM EST History and Physical Notes * HPI (History of Present Illness) Category Sub-Category Detail Notes COVID-19 Screening Questions Have you had any new onset fever, chills, cough, congestion, sore throat, shortness of breath, muscle aches?: No Examination Category Sub-Category Detail Notes General Examination GENERAL APPEARANCE: pleasant , well nourished, well developed, in no acute distress, calm and relaxed: man HEAD: atraumatic, normocep halic EYES: eomi, perrla, anicte machelle, conjugate EARS: normal NOSE: septum intact NECK/THYROID: no jugular venous di stention, no carotid bruit, thyroid normal HEART: no clicks, gallops, murmurs, or rubs, regular rhythm, S1, S2 normal, no s3, or vascular bruits LUNGS: : diminished breath sounds throughout: good air movement ABDOMEN: bowel sounds normal, no ascites, no organomegaly, no mass NEUROLOGIC: alert and oriented, cranial nerves 2-12 grossly intact, deep tendon reflexes 2+ symmetrical, motor strength normal upper and lower extremities, sensory exam intact SKIN: no suspicious lesion s, anicteric PERIPHERAL PULSES: normal BREASTS: no masses palpable b ilaterally MUSCULOSKELETAL: extremities unremark able, no clubbing, cyanosis or edema, Severe pain to elevation of the right shoulder, long scar anterior right tibia LYMPH NODES: no enlarged lymph no cipriano,spleen normal RECTAL EXAM: not examined PSYCH: alert, oriented ORAL CAVITY: normal, unremarkable
--- OUTSIDE RECORDS SUMMARY | 2024-12-06 06:15 | XMS_ITS ---
Author Organization Luiz Maguire III, MD Address [address] [place] [address] [place] [address] Care Team Providers Care Manager Material Name Role Phone Dr. Luiz Maguire III Primary Care Provider Allergies Allergen (clinical drug ingredient) Drug/Non Drug Allergy documented on EMR Reaction Allergy Type Onset Date Status Vicodin Unknown Drug Allergy Active Shellfish (FN) scallops (uncoded) Unknown Allergy Active Bee Sting anaphylaxis Allergy 10/18/2019 Active REASON FOR VISIT Acute left shoulder pain, History of osteomyelitis of the right tibia, GERD, Depression, Lumbar radiculopathy, COPD Medications Medication SIG (Take, Route, Frequency, Duration) Notes Start Date End Date Status Atorvastatin Calcium 10 MG TAKE 1 TABLET BY MOUTH EVERY DAY FOR 90 DAYS Active EPINEPHrine 0.15 MG/0.3ML use one pen In jection for a bee sting 03/08/2024 Active Albuterol Sulfate HFA 108 (90 Base) MCG/ACT INHALE 1 PUFF BY MOUTH EVERY 4 HOURS Inhalation every 4 hrs Active Centrum Silver - as directed Orally Active Gabapentin 300 MG 1 capsule Orally thr ee times a day 07/07/2024 Active traZODone HCl 150 MG TAKE 1 TABLET BY [facility] EVERYDAY AT BEDTIME Active Social History [...] Tobacco Non-User Ex-cigaret te smoker Vital Signs Height 69 in 12/06/2024 Weight 139 lbs 12/06/2024 BMI 20.52 kg/m2 12/06/2024 Encounters Encounter Location Date Provider Diagnosis Luiz Maguire III, MD [address] [place] [address] [place] [address] 12/06/2024 Luiz Maguire COPD (chronic obstructive pulmonary disease) J44.9 ; Acute pain of left shoulder M25.512 ; Depression F32.9 ; Mixed hyperlipidemia E78.2 ; GERD (gastroesophageal reflux disease) K21.9 ; Lumbosacral radiculopathy M54.17 and Former smoker Z87.891 Assessments Encounter Date Diagnosis (ICD Code) Assessment Notes Treat ment Notes Treatment Clinical Notes 12/06/2024 COPD (chronic obstructive pulmonary disease) (ICD-10 - J44.9) His breath sounds are diminished and there were a few inspiratory wheezes today but he is comfortable breathing room air. We encouraged him to stop smoking. He will continue on current medications without change. 12/06/2024 Acute pain of left shoulder (ICD-10 - M25.512) The shoulder pain is rapidly resolving and he will resume normali activity 1 week.t. 12/06/2024 Depression (ICD-10 - F32.9) His depression was very minimal today. He continued on current therapy. 12/06/2024 Mixed hyperlipidemia (ICD-10 - E78.2) His lipid values have been in the normal range.. We discussed diet and nutrition and the elements of a low animal fat diet today. Comprehensive blood work with a fasting lipid profile has been orderedHis HDL is 88, LDL 129 and total cholesterol 238. We discussed cholesterol reduction strategy at length. 12/06/2024 GERD (gastroesophageal reflux disease) (ICD-10 - K21.9) His reflux symptoms are well controlled with medication. He is sleeping through the night usually. No change in his medication was necessary 12/06/2024 Lumbosacral radiculopathy (ICD-10 - M54.17) Low back pain is now minimal. He is avoiding heavy lifting and undue exertion. 12/06/2024 Former smoker (ICD-1 0 - Z87.891) He [...] In jection for a bee sting 03/08/2024 Albuterol Sulfate HFA 108 (9 0 Base) MCG/ACT INHALE 1 PUFF BY MOUTH EVERY 4 HOURS Inhalation every 4 hrs Centrum Silver - as directed Orally Gabapentin 300 MG 1 capsule Orally thr ee times a day 07/07/2024 traZODone HCl 150 MG TAKE 1 TABLET BY [facility] EVERYDAY AT BEDTIME Next Appt Details Follow Up: As Scheduled, Adenike son: Annual Exam Provider Name:Luiz Maguire , 09/11/2025 02:00:00 PM, [address] [place] [address] [address], [place], [address], Provider Name:Luiz Maguire , 03/15/2026 02:00:00 PM, [address] [place] [address] [address], [place], [address], Progress Notes * Aakash CORONADODOB:1959 (64 yo M)Acc No.[id number]:12/06/2024 Patient: Aakash ANDERSON Provider: Sid Maguire MD :1960 A ge:64 Y S ex:Male Date:12/06/2024 Address:[address] [place] [address] Joaquin MERCHANT [id number] Subjective: * Chief Complaints: * A cute left shoulder painHistory of osteomyelitis of the right tibiaGERDDepressionLumbar radiculopathyCOPD * HPI: * : X-ray of the left shoulder was unremarkable.He reports the pain has 90% subsided. He is able to lift his arm above the horizon. He will continue to avoid heavy lifting for week and then resume all of the activities of daily life. No change in his regimen was necessary. Telehealth L ocation of provider rendering services: { ...} [address] [facility] [address] [facility] [address] L ocation of patient: hola choudhary listed in demographics for today's visit P atient identification confirmed using: SEJAL Johnson ame elehealth method: T elephone only. Patient not visible to care provider. C onsent: P atient verbally consented to treatment, Patient verbally consented to billing insurance company, Patient informed of any privacy concerns related to method of visit T otal time spent with patient (mins) 1 5 * ROS: G eneral/Constitutional: pain I mproved left shoulder pain. C hills d enies.?Fatigue a dmits. F ever d enies. E NT: Decreased hearing d enies. R espiratory: Cough d enies. C ardiovascular: Chest pain with exertion d enies. D yspnea on exertion?denies. S hortness of breath d enies. G astrointestinal: Constipation d enies. D ecreased appetite d enies.?Diarrhea d enies. H e[place] c ontrolled with medications. N ausea d enies.?Rectal bleeding d enies. V omiting d enies. [...] x-cigarette smoker H e has been to [employer] for 23 years and not working. He has no toxic exposures. He enjoys poker, football. [place], cribbage. He was born in [place], [place]. * Medications: T akingEPINEPHrine 0.15 MG/0.3ML [...] Vitals: H t: 69, Wt: 139, BMI:20.52, Ht-cm: 175.26, Wt-k.05. Assessment: * Assessment: 1. A cute pain of left shoulder - M25.512 (Primary) N otes :The shoulder pain is rapidly resolving and he will resume normali activity 1 week.t. 2 . C OPD (chronic obstructive pulmonary [...] He continued on current therapy. 4 . M ixed hyperlipidemia - E78.2 N otes :His lipid values have been in the normal range.. We discussed diet and nutrition and the elements of a low animal fat diet today. Comprehensive blood work with a fasting lipid profile has been orderedHis HDL is 88, LDL 129 and total cholesterol 238. We discussed cholesterol reduction strategy at length. 5 . G ERD (gastroesophageal reflux disease) - K21.9 N otes :His reflux symptoms are well controlled with medication. He is sleeping through the night usually. No change in his medication was necessary 6 . L umbosacral radiculopathy - M54.17 N otes :Low back pain is now minimal. He is avoiding heavy lifting and undue exertion. 7 . F ormer smoker - Z87.891 N otes :He seems highly motivated not to smoke. His COPD has improved. He has a strategy to prevent relapse in times of stress and illness. Plan: * Treatment: 2. O thers Continue EPINEPHrine Solution Auto-injector, 0.15 MG/0.3ML, use one pen, Injection, for a bee sting. * Procedure Codes: 9 8012 SYNCH AUDIO-ONLY EST SF 10 * Preventive Medicine: Counseling: S moking/Tobacco Use Patient counseled on the dangers of tobacco use and urged to quit. 0 12/06/2024 COPD Care Plan: P atient Lifestyle Goals B e able to be more active with friends and family, Reduce number of ED and hospitalizations, Relieve symptoms and improve quality of life. T reatment Goals E at a nutritious diet and increase water consumption to 6-8 glasses a day, Exercise to help whole body, including lungs. B arriers n o barriers. S elf-Managment Goals G et an air purifier for the rooms you are in the most. * Follow Up: A s Scheduled (Reason: Annual Exam) * Images: * Sign off status: Completed true * Provider: Sid Maguire MD Date: 0 12/06/2024 Generated for Taco cavanaugh/Negrito/eTransmitting on: 1 06/11/2024 08:36 AM EST History and Physical Notes * HPI (History of Present Illness) Category Sub-Category Detail Notes Telehealth Location of [facility] rendering services:: {...} [address] [facility] [address] [place] [id number] Location of patient:: address listed in demographics for today's visit Patient identification confirmed using:: Name, Telehealth method:: Telephone only. Elizabeth ent not visible to care provider. Consent:: Patient verbally c onsented to treatment, Patient verbally consented to billing insurance company, Patient informed of any privacy concerns related to method of visit Total time spent with patient (mins): 15
--- OUTSIDE RECORDS SUMMARY | 2025-03-13 09:00 | XMS_ITS ---
Author Organization Luiz Maguire III, MD Address [address] [place] [address] [place] [address] Care Team Providers Care Score Caller Name Role Phone Dr. Luiz Maguire III Primary Care Provider Allergies Allergen (clinical drug ingredient) Drug/Non Drug Allergy documented on EMR Reaction Allergy Type Onset Date Status Vicodin Unknown Drug Allergy Active Shellfish (FN) scallops (uncoded) Unknown Allergy Active Bee Sting anaphylaxis Allergy 10/18/2019 Active REASON FOR VISIT Annual Exam Medications Medication SIG (Take, Route, Frequency, Duration) Notes Start Date End Date Status Albuterol Sulfate HFA 108 (90 Base) MCG/ACT INHALE 1 PUFF BY MOUTH EVERY 4 HOURS Inhalation every 4 hrs Active traZODone HCl 150 MG TAKE 1 TABLET [address] [facility] EVERYDAY AT BEDTIME Active EPINEPHrine 0.15 MG/0.3ML use one pen In jection for a bee sting 03/08/2024 Active Atorvastatin Calcium 10 MG TAKE 1 TABLET BY MOUTH EVERY DAY FOR 90 DAYS Active Social History Tobacco Use: Social History Observation Description Date Details (start date - stop date) Former Smoker NA - NA Sex Assigned At : Social History Observation Description Sex Assigned At Male Tobacco Control (Standard) Question Answer Notes Tobacco use: Former smoker How long has it been since you last smoked? Grea ter than 10 years Additional Findings: Tobacco non-user Ex-cigaret te smoker AUDIT-C (Standard) Question Answer Notes Did you have a drink containing alcohol in the p ast year? No Points 0 Interpretation Negative Problems Problem Type SNOMED Code ICD Code Onset Dates Problem Status W/U Status Risk Notes Problem Wrist pain (48720596) Wrist pain (M25.539) Active confirmed This is a new problem likely related to his recent exercising. X-rays of both wrists have been ordered to evaluate for arthritis. The physical examination was within normal limits. Vital Signs Temperature 98.1 degrees Fahrenheit 03/13/20 25 Blood pressure systolic 114 mm Hg 03/13/20 25 Blood pressure diastolic 64 mm Hg 025 Heart Rate 53 /min 03/13/2025 Height 69 in 03/13/2025 Weight 145 lbs 03/13/2025 BMI 21.41 kg/m2 03/13/2025 Encounters Encounter Location Date Provider Diagnosis Luiz Maguire III, MD [address] [place] [address] DR [address] [place] [id number] 03/13/2025 Luiz Maguire COPD (chronic obstructive pulmonary disease) J44.9 ; Wrist pain M25.539 ; Former smoker Z87.891 ; GERD (gastroesophageal reflux disease) K21.9 ; Umbilical hernia K42.9 ; Depression F32.9 ; Lumbosacral radiculopathy M54.17 ; Basal cell carcinoma of face C44.310 and Lipoma of torso D17.1 Assessments Encounter Date Diagnosis (ICD Code) Assessment Notes Treat ment Notes Treatment Clinical Notes 03/13/2025 COPD (chronic obstructive pulmonary disease) (ICD-10 - J44.9) His breath sounds are diminished and there were a few inspiratory wheezes today but he is comfortable breathing room air. We encouraged him to stop smoking. He will continue on current medications without change. 03/13/2025 Wrist pain (ICD-10 - M25.539) This is a new problem likely related to his recent exercising. X-rays of both wrists have been ordered to evaluate for arthritis. The physical examination was within normal limits. 03/13/2025 Former smoker (ICD-10 - Z87.891) He seems highly motivated not to smoke. His COPD has improved. He has a strategy to prevent relapse in times of stress and illness. 03/13/2025 GERD (gastroesophageal reflux disease) (ICD-10 - K21.9) His reflux symptoms are well controlled with medication. He is sleeping through the night usually. No change in his medication was necessary 03/13/2025 Umbilical hernia (ICD-10 - K42.9) This was repaired in the past and is asymptomatic at the current time. 03/13/2025 Depression (ICD-10 - F32.9) His depression was very minimal today. He continued on current therapy. 03/13/2025 Lumbosacral radiculopathy (ICD-10 - M54.17) Low back pain is now minimal. He is avoiding heavy lifting and undue exertion. 03/13/2025 Basal cell carcinoma of face (ICD-10 - C44.310) This is being treated. 03/13/2025 Lipoma of torso (ICD-10 - D17.1) The mass under the skin below his left breast is been resected and was a lipoma. The wound has healed well. No further treatment is needed. Plan Of Treatment Medication Medication Name Sig Start Date Stop Date Notes Albuterol Sulfate HFA 108 (9 0 Base) MCG/ACT INHALE 1 PUFF BY MOUTH EVERY 4 HOURS Inhalation every 4 hrs traZODone HCl 150 MG TAKE 1 TABLET [address] [facility] EVERYDAY AT BEDTIME EPINEPHrine 0.15 MG/0.3ML use one pen In jection for a bee sting 03/08/2024 Atorvastatin Calcium 10 MG TAKE 1 TABLET BY MOUTH EVERY DAY FOR 90 DAYS Pending Test Test Name Order Date PROFILE, FASTING (COMPREHENSIVE METABOLI C) 03/13/2025 PSA, TOTAL 03/13/2025 CBC w DIFF 03/13/2025 XR WRIST LT 03/13/2025 XR WRIST RT 03/13/2025 Lipid Panel 03/13/2025 Next Appt Details Follow Up: 6 Months, Reason: OV Provider Name:Luiz Maguire 09/11/2025 02:00:00 PM, [address] [facility] [address], [place], [phone], Provider Name:Luiz Maguire , 03/15/2026 02:00:00 PM, [address] [facility], [place], [id number], Progress Notes * Aakash CORONADODOB:1959 (65 yo M)Acc No.[id number]:03/13/2025 Progress Notes Patient: Aakash ANDERSON Provider: Sid Maguire MD :1960 A ge:65 Y S ex:Male Date:03/13/2025 Address:[address] [place] [address] Joaquin [place], [id number] Subjective: * Chief Complaints: * A nnual Exam * HPI: D epression Screening: Corinne watt comes to the office today at the age of 65 for his annual visit. His only new complaint is 2 palpable lesions on the scalp. Upon inspection these were benign verruca's lesions 1 on the right side over his ear and the other in the midline at the very vertex. He was reassured. His back pain is present but he says it is not very bad. He is breathing comfortably and not smoking. He admits to nocturia once a night. We discussed lifestyle modifications he could make to reduce this. The umbilical hernia is asymptomatic. His esophageal reflux is well-controlled. The erectile dysfunction has been treated. He has very little neck pain recently. He has had no drainage from the sinus tract in the right tibia. The left shoulder is only mildly painful occasionally. He has been exercising and has developed pain in each wrist. X-rays of the right and left wrist were ordered today to assess the cause. PHQ-9 L ittle interest or pleasure in doing things?Not at all F eeling down, depressed, or hopeless N ot at all T rouble falling or staying asleep, or sleeping too much N ot at all F eeling tired or having little energy N early every day P oor appetite or overeating N early every day F eeling bad about yourself or that you are a failure, or have let yourself or your family down N ot at all T rouble concentrating on things, such as reading the newspaper or watching television N ot at all M oving or speaking so slowly that other people could have noticed; or the opposite, being so fidgety or restless that you have been moving around a lot more than usual N ot at all T houghts that you would be better off or of hurting yourself in some way N ot at all T otal Score 6 I nterpretation M ild Depression C OVID-19 Screening: Questions H ave you had any new onset fever, chills, cough, congestion, sore throat, shortness of breath, muscle aches? N o * ROS: G eneral/Constitutional: pain B oth shoulders, neck, both wrists. C hills d enies. F atigue a dmits. F ever d enies. E NT: Decreased hearing d enies. R espiratory: Cough d enies. C ardiovascular: Chest pain with exertion d enies. D yspnea on exertion?denies. S hortness of breath d enies. G astrointestinal: Constipation o ccasional. D ecreased appetite d enies. D iarrhea d enies. H eartburn c ontrolled with medications. N ausea d enies. R ectal bleeding [...] Social History: T obacco Use: T obacco Control (Standard) T obacco use: F ormer smoker H ow long has it been since you last smoked??Greater than 10 years A dditional Findings: Tobacco non-user E x-cigarette smoker D rugs/Alcohol: D rugs H ave you used drugs other than those for medical reasons in the past 12 months? Y es M arijuana? Y es D rug/Alcohol: A DANETTE-C (Standard) D id you have a drink containing alcohol in the past year? N o P oints 0 I nterpretation N egative H e has been to [place] for 23 years and not working. He has no toxic exposures. He enjoys poker, football. billiards, cribbage. He was born in [place], [place]. * Medications: T akingEPINEPHrine 0.15 MG/0.3ML Solution Auto-injector use one pen Injection for a bee sting Atorvastatin Calcium 10 MG Tablet TAKE 1 TABLET BY MOUTH EVERY DAY FOR 90 DAYS Albuterol Sulfate HFA 108 (90 Base) MCG/ACT Aerosol Solution INHALE 1 PUFF BY MOUTH EVERY 4 HOURS Inhalation every 4 hrs traZODone HCl 150 MG Tablet TAKE 1 TABLET BY MOUTH EVERYDAY AT BEDTIME Taking EPINEPHrine 0.15 MG/0.3ML Solution Auto- injector use one pen Injection for a bee sting Taking Atorvastatin Calcium 10 MG Tablet TAKE 1 TABLET BY MOUTH EVERY DAY FOR 90 DAYS Taking Albuterol Sulfate HFA 108 (90 Base) MCG/ACT Aerosol Solution INHALE 1 PUFF BY MOUTH EVERY 4 HOURS Inhalation every 4 hrs Taking traZODone HCl 150 MG Tablet TAKE 1 TABLET BY MOUTH EVERYDAY AT BEDTIME DiscontinuedCentrum Silver - Tablet as directed Orally Gabapentin 300 MG Capsule 1 capsule Orally three times a day Medication List reviewed and reconciled with the patientDiscontinued Centrum Silver - Tablet as directed Orally Discontinued Gabapentin 300 MG Capsule 1 capsule Orally three times a day Medication List reviewed and reconciled with the patient * Allergies: V icodinscallopsBee Sting: anaphylaxis - Allergy - Criticality High - Onset Date 10/18/2019no[Allergies Verified] Objective: * Vitals: H t: 69, Wt: 145, BMI:21.41, BP: 114/64, HR: 53, Temp: 98.1, Ht-cm: 175.26, Wt-k.77. * Examination: G eneral Examination: GENERAL APPEARANCE: [...] nodes,spleen normal. SKIN: n o suspicious lesions, anicteric,, 2 verruca scalp lesions noted with benign appearance. HEART: n o clicks, gallops, murmurs, or rubs, regular rhythm, S1, S2 normal, no s3, or vascular bruits. LUNGS: : diminished breath sounds throughout: no wheezes, rales, rhonchi: good air movement. BREASTS: no masses palpable bilaterally. ABDOMEN: b owel sounds normal, no ascites, no organomegaly, no mass, asymptomatic umbilical hernia. RECTAL EXAM: n ot examined. MUSCULOSKELETAL: e xtremities unremarkable, no clubbing, cyanosis or edema, no edema erythema of the wrist with normal range of motion, subcutaneous lipoma over left scapula, healed surgical defect over right tibia without drainage. PERIPHERAL PULSES: n ormal. NEUROLOGIC: a lert and oriented, cranial nerves 2-12 grossly intact, deep tendon reflexes 2+ symmetrical, motor strength normal upper and lower extremities, sensory exam intact. PSYCH: a lert, oriented: cooperative with exam: cognitive function intact: good eye contact: speech clear: thought process logical, goal directed. ? Assessment: * Assessment: 1. C OPD (chronic obstructive pulmonary disease) - J44.9 (Primary) N otes :His breath sounds are diminished and there were a few inspiratory wheezes today but he is comfortable breathing room air. We encouraged him to stop smoking. He will continue on current medications without change. 2 . W rist pain - M25.539 N otes :This is a new problem likely related to his recent exercising. X-rays of both wrists have been ordered to evaluate for arthritis. The physical examination was within normal limits. 3 . F ormer smoker - Z87.891 N otes :He seems highly motivated not to smoke. His COPD has improved. He has a strategy to prevent relapse in times of stress and illness. 4 . G ERD (gastroesophageal reflux disease) - K21.9 N otes :His reflux symptoms are well controlled with medication. He is sleeping through the night usually. No change in his medication was necessary 5 . U mbilical hernia - K42.9 N otes :This was repaired in the past and is asymptomatic at the current time. 6 . D epression - F32.9 N otes :His depression was very minimal today. He continued on current therapy. 7 . L umbosacral radiculopathy - M54.17 N otes :Low back pain is now minimal. He is avoiding heavy lifting and undue exertion. 8 . B vidya cell carcinoma of face - C44.310 N otes :This is being treated. 9 . L ipoma of torso - D17.1 N otes :The mass under the skin below his left breast is been resected and was a lipoma. The wound has healed well. No further treatment is needed. Plan: * Treatment: 2. W rist pain I maging: XR WRIST LT I maging: XR WRIST RT * Labs: * L ab: PROFILE, FASTING (COMPREHENSIVE METABOLIC) L ab: PSA, TOTAL L ab: CBC w DIFF L ab: Lipid Panel * Procedure Codes: * Preventive Medicine: Counseling: S moking/Tobacco Use Patient counseled on the dangers of tobacco use and urged to quit. 1 05/13/2024 COPD Care Plan: P atient Lifestyle Goals [...] Eat a healthy diet. * Follow Up: 6 Months (Reason: OV) * Images: * Sign off status: Completed true * Provider: Sid Maguire MD Date: 05/13/2024 Generated for Taco cavanaugh/Negrito/Teenaitting on: 06/11/2024 08:36 AM EST History and Physical Notes * HPI (History of Present Illness) Category Sub-Category Detail Notes Depression Screening PHQ-9 Little inte rest or pleasure in doing things: Not at all Feeling down, depressed, or hopeless: No t at all Trouble falling or staying asleep, or sl eeping too much: Not at all Feeling tired or having little energy: N early every day Poor appetite or overeating: Nearly ever y day Feeling bad about yourself o r that [...] some way: Not at all Total Score: 6 Interpretation: Mild Depression COVID-19 Screening Questions Have you had any [...] bruits LUNGS: : diminished breath sounds throughout: no wheezes, rales, rhonchi: good air movement ABDOMEN: bowel sounds normal, no ascites, no organomegaly, no mass, asymptomatic umbilical hernia NEUROLOGIC: alert and oriented, cranial nerves 2-12 grossly intact, deep tendon reflexes 2+ symmetrical, motor strength normal upper and lower extremities, sensory exam intact SKIN: no suspicious lesion s, anicteric,, 2 verruca scalp lesions noted with benign appearance PERIPHERAL PULSES: normal BREASTS: no masses palpable b ilaterally MUSCULOSKELETAL: extremities unremark able, no clubbing, cyanosis or edema, no edema erythema of the wrist with normal range of motion, subcutaneous lipoma over left scapula, healed surgical defect over right tibia without drainage LYMPH NODES: no enlarged lymph no cipriano,spleen normal RECTAL EXAM: not examined PSYCH: alert, oriented: main entree cook and cashier perative with exam: cognitive function intact: good eye contact: speech clear: thought process logical, goal directed ORAL CAVITY: normal, unremarkable
--- NOTE | ~2025-04-10 | XR_ITS ---
EXAMINATION: XR WRIST, BILATERAL. CLINICAL INFORMATION: WRIST PAIN COMPARISON: None available. TECHNIQUE: PA, lateral, and oblique views of the both wrists. Scaphoid projections.. FINDINGS: Degenerative changes in the first carpometacarpal joint with asymmetric joint space narrowing and sclerosis along the articular surface pronounced on the left wrist. No acute cortical disruption or malalignment. No lytic or blastic lesions. No soft tissue calcifications. No metallic or radiopaque foreign body. No subcutaneous emphysema. 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 XR/XR Wrist Titus min 3V IMPRESSION: Osteoarthritis/osteoarthrosis first carpometacarpal joint, left greater than the right wrist. 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 Electronically signed by: Jovanny Perry MD 04/10/2025 08:51 AM GENESIS HUERTA
[2025-04-10 08:28] LABS: MANUAL DIFF FLAG NO
--- OUTSIDE RECORDS SUMMARY | 2025-04-10 08:36 | XMS_ITS | Patient Health Record ---
Author Organization Luiz Maguire III, MD Address [address] [place] [address] [place] [address] Care Team Providers Care Java Application Engineer Name Role Phone Dr. Luiz Maguire III Primary Care Provider Allergies Allergen (clinical drug ingredient) Drug/Non Drug Allergy documented on EMR Reaction Allergy Type Onset Date Status Bee Sting anaphylaxis Allergy 10/18/2019 Active Vicodin Unknown Drug Allergy Active Shellfish (FN) scallops (uncoded) Unknown Allergy Active Results Component Value Reference Range Notes XR chest 2V Reviewed date:07/09/2024 10:15:09 AM Interpretation: Performing Lab: Notes/Report: [address] [address] XRay Report Signed Patient: Aakash Coronado MR#: [id number] : 1960 Acct:[id number] Age/Sex: 64 / M ADM Date: 06/19/24 Loc: HO.XRANNY Attending Dr: Luiz Maguire MD Ordering Physician: Luiz Maguire MD Date of Service: 06/19/24 Procedure(s): XR chest 2V Accession Number(s): [id number] cc: Luiz Maguire MD EXAMINATION: XR CHEST [...] by: Luiz Nick MD 06/19/2024 12:31 PM [facility] Dictated By: Luiz Nick MD Signed By: <Electronically signed by Luiz Nick MD in OV> 06/19/24 1231 DD/ 1205 TD/TT: 06/19/24 1205 [employer] Operators Supervisor: [place] [id number] XRay Report Signed Patient: Jamey Coronado MR#: [id number] : 1960 Acct:[id number] Age/Sex: 64 / M ADM Date: 06/19/24 Loc: HO.XRAY Attending Dr: Luiz Maguire MD Ordering Physician: Luiz Maguire MD Date of Service: 06/19/24 Procedure(s): XR chest 2V Accession Number(s): [id number] cc: Luiz Maguire MD EXAMINATION: XR CHES [...] by: Luiz Nick MD 06/19/2024 12:31 PM [facility] Dictated By: Luiz Nick MD Signed By: <Chalo dunham signed by Luiz Nick MD in OV> 06/19/24 1231 DD/ 1205 TD/TT: 06/19/24 1205 Network Control Operators Supervisor: Complete Blood Count Auto Di ff Reviewed date:07/09/2024 10:15:09 AM Interpretation: Performing Lab:[facility], [address] [place] [phone] Notes/Report: White Blood Count 5.5 4.8-10.8 X10*3/uL [...] 0.0 0.0-0.2 /100WBC Neutrophils Absolute Auto 2.8 2.0-8.3 x10*3/uL Imm Gran Abs Auto 0.02 0.00-0.03 X10*3/uL Lymphocytes Absolute Auto 1.9 1.2-4.9 X10*3/uL Monocytes Absolute Auto 0.5 0.1-1.2 X10*3/uL Eosinophils Absolute Auto 0.2 0.0-0.4 X10*3/uL Basophils Absolute Auto 0.1 0.0-0.2 X10*3/uL NRBC Abs Auto 0.000 0.0-0.012 X10*3/uL Erythrocyte Sedimentation Ra te Reviewed date:07/09/2024 10:15:09 AM Interpretation: Performing Lab:[facility], [address] [place] [phone] Notes/Report: Erythrocyte Sedimentation Rate 6 0-15 MM/HR Patients with polycythemia and many hemoglobin abnormalities may have depressed sed rates whereas patients with anemia may have elevated sed rates. Comprehensive [place]. Panel Fa Reviewed date:07/09/2024 10:15:09 AM Interpretation: Performing Lab:[facility], [address] [place] [phone] Notes/Report: Sodium 143 135-145 mmol/L Potassium 5.7 [...] Dehydrogenase Reviewed date:07/09/2024 10:15:09 AM Interpretation: Performing Lab:[facility], [address] [place] [phone] Notes/Report: Lactate Dehydrogenase 162 118-273 U/L Lipid Panel Reviewed date:07/09/2024 10:15:09 AM Interpretation: Performing Lab:[facility], [address] [place] [phone] Notes/Report: Triglycerides 57 <150 mg/dL Desirable Triglyceride: [...] Antigen Reviewed date:07/09/2024 10:15:09 AM Interpretation: Performing Lab:[facility], [address] [place] [phone] Notes/Report: Prostate Specific Antigen 1.49 <0.05-4.0 ng/mL PSA methodology: Roa Optichronnity i Chemiluminescent Microparticle Immunoassay (CMIA) D Dimer High Sensitivity Reviewed date:07/09/2024 10:15:09 AM Interpretation: Performing Lab:[facility], [address] [place] [phone] Notes/Report: D Dimer High Sensitivity 205 D-DIMER HS REFERENCE RANGE Note: Our assay reports D-Dimer Units (D-DU). The cut-off value for venous thromboembolic (VTE) disease is 230 ng/mL. This value has a very high negative predictive value when the patient has a low to moderate clinical probability of VTE. The upper limit of normal is 243 ng/mL. MR cervical spine wo con Reviewed date:02/05/2025 09:38:09 AM Interpretation: Performing Lab: Notes/Report: [address] [address] Magnetic Resonance Report Signed Patient: Aakash Coronado MR#: [id number] : 1960 Acct:[id number] Age/Sex: 64 / M ADM Date: 07/22/24 Loc: HO.MRI Attending Dr: Luiz Maguire MD Ordering Physician: Luiz Maguire MD Date of Service: 07/22/24 Procedure(s): MR cervical spine wo con Accession Number(s): [id number] cc: Luiz Maguire MD EXAMINATION: MR CERVICAL [...] Jovanny Perry MD 07/24/2024 08:46 AM EDT Dictated By: Jovanny Dallas MD Signed By: <Electronically signed by Jovanny Ashby MD in OV> 07/24/24 0846 DD/ 0950 TD/TT: 07/22/24 1020 Network Control Operators Supervisor: [place] [address] Magnetic Resonance Report Signed Patient: Jamey Coronado MR#: [id number] : 1960 Acct:[id number] Age/Sex: 64 / M ADM Date: 07/22/24 Loc: HO.MRI Attending Dr: Luiz Maguire MD Ordering Physician: Luiz Maguire MD Date of Service: 07/22/24 Procedure(s): MR garcia vical spine wo con Accession Number(s): [id number] cc: Luiz Maguire MD EXAMINATION: MR CERVICAL [...] compression. No neuroforamina stenosis. C3-4: Disc osteophyte comp resses formation resulting in ventral thecal sac deformity. Bilateral neuroforamina narrowing on a degenerative basis. No cord compression. C4-5: Disc osteophyte comp resses formation resulting in ventral thecal sac deformity. [...] Dictated By: Jovanny Hendrickson MD Signed By: <Electron ically signed by Jovanny Ashby MD in OV> 07/24/24 0846 DD/ 0950 TD/TT: 07/22/24 1020 Network Control Operators Supervisor: Reason For Referral Reason Evaluate and Treat Diagnosis 1 Cervical radiculopat hy (M54.12) Diagnosis 2 Neck pain on left si de (M54.2) Referral Organization Luiz Maguire III, MD Referring Provider First Name Luiz Referring Provider Last Name Andrez Referring Provider Speciality Internal M edicine Referred Provider [facility] er, Pain Management Referred Provider Specialty Pain Medicin e General Notes Brinda Patton 07/21/2024 02:53:26 PM >Per Dr. Maguire faxed referral without MRI. Referral and last progress note faxedPooja Amber 07/24/2024 09:27:13 AM > MRI faxed., Brinda Patton 07/26/2024 01:21:22 PM > Received fax from [facility] stated they can not book the patient [...] to pay them at this time at [facility] D, Brinda 08/03/2024 01:55:31 PM > Per Dr. Maguire send patient to Pain Management at [facility], referral faxed Referral Priority Routine Referral Appointment Date 08/25/2024 Medications Medication SIG (Take, Route, Frequency, Duration) Notes Start Date End Date Status Albuterol Sulfate HFA 108 (90 Base) MCG/ACT INHALE 1 PUFF BY MOUTH EVERY 4 HOURS Inhalation every 4 hrs Active Atorvastatin Calcium 10 MG TAKE 1 TABLET BY MOUTH EVERY DAY FOR 90 DAYS Active traZODone HCl 150 MG TAKE 1 TABLET BY ID UT EVERYDAY AT BEDTIME Active EPINEPHrine 0.15 MG/0.3ML use one pen In jection for a bee sting 03/08/2024 Active Immunizations Vaccine Route Administration Date Status [...] Problem Status W/U Status Risk Notes Problem 4423774 Former smoker (Z87.891) Active confirmed He seems highly motivated not to smoke. His COPD has improved. He has a strategy to prevent relapse in times of stress and illness. Problem 96954347 Depression (F32.9) Active confirmed His depression was very minimal today. He continued on current therapy. Problem 249502335 GERD (gastroesophage al reflux disease) (K21.9) Active confirmed His reflux symptoms are well controlled with medication. He is sleeping through the night usually. No change in his medication was necessary Problem 366150735 Mixed hyperlipidemia (E78.2) Active confirmed His lipid values have been in the normal range.. We discussed diet and nutrition and the elements of a low animal fat diet today. Comprehensive blood work with a fasting lipid profile has been orderedHis HDL is 88, LDL 129 and total cholesterol 238. We discussed cholesterol reduction strategy at length. Problem Benign prostatic hyperplasia (236320643) BPH (benign prostatic hyperplasia) (N40.0) Active confirmed He rises from sleep once a night to urinate. We have discussed lifestyle modification as a way to reduce nocturia. Problem 291001830 Erectile dysfunction, unspecified erectile dysfunction type (N52.9) Active confirmed This problem is stable with medication and no change in regimen was made. 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 Problem 18781570 COPD (chronic obstructive pulmonary disease) (J44.9) Active confirmed His breath sounds are diminished and there were a few inspiratory wheezes today but he is comfortable breathing room air. We encouraged him to stop smoking. He will continue on current medications without change. Problem 36191152 Cervical radiculopathy (M54.12) Active confirmed He is waiting to see paain management for injections. This is unsuccessful I will see about a neurosurgical consultation. His symptoms are significant at this time but not life-threateni ng. Problem 912328665 Umbilical hernia (K42.9) Active confirmed This was repaired in the past and is asymptomatic at the current time. Problem Cataract (187561104) Cataract (H26.9) Active confirmed Problem Basal cell carcinoma of face (834785459) Basal cell carcinoma of face (C44.310) Active confirmed This is being treated. Problem 9255640927 Acute pain of left shoulder (M25.512) Active confirmed The shoulder pain is rapidly resolving and he will resume normali activity 1 week.t. Problem 4943963 Lumbosacral radiculopathy (M54.17) Active confirmed Low back pain is now minimal. He is avoiding heavy lifting and undue exertion. Problem Wrist pain (15992031) Wrist pain (M25.539) Active confirmed This is a new problem likely related to his recent exercising. X-rays of both wrists have been ordered to evaluate for arthritis. The physical examination was within normal limits. Problem 29116679 Bilateral hearing loss, unspecified hearing loss type (H91.93) Active confirmed He reports no change in his hearing. Problem 680633954 Benign prostatic hyperplasia, unspecified whether lower urinary tract symptoms present (N40.0) Active confirmed He rises at most once a night to urinate depending upon fluid intake. We have discussed lifestyle modification as a way to reduce nocturia. Problem 9768695967155350 Subacute osteomyelitis of right tibia (M86.261) Active confirmed The drainage is minimal. He will continue with current therapy and will be observed. The wound care clinic has been involved. Problem 617856834 Age-related incipient cataract of left eye (H25.092) Active confirmed This was explained. He was referred to ophthalmology. Problem 371614702654467 Lipoma of torso (D17.1) Active confirmed The mass under the skin below his left breast is been resected and was a lipoma. The wound has healed well. No further treatment is needed. Vital Signs Heart Rate 53 /min 03/13/2025 Temperature 98.1 degrees Fahrenheit 03/13/2025 Blood pressure diastolic 64 mm Hg 03/13/2025 Height 69 in 03/13/2025 Blood pressure systolic 114 mm Hg 03/13/2025 Weight 145 lbs 03/13/2025 BMI 21.41 kg/m2 03/13/2025 Encounters Encounter Location Date Provider Diagnosis Luiz Maguire III, MD [address] [place] [address] [place] [address] 06/19/2024 Luiz Maguire COPD (chronic obstructive pulmonary disease) J44.9 ; Pleuritic pain R07.81 ; GERD (gastroesophageal reflux disease) K21.9 ; Umbilical hernia K42.9 ; Depression F32.9 and Anxiety disorder due to multiple medical problems F06.8 Luiz Maguire III, MD [address] [place] [address] [place] [address] 07/07/2024 Luiz Maguire COPD (chronic obstructive pulmonary disease) J44.9 ; Cervical radiculopathy M54.12 ; GERD (gastroesophageal reflux disease) K21.9 ; Depression F32.9 ; Former smoker Z87.891 ; Lumbosacral radiculopathy M54.17 and BPH (benign prostatic hyperplasia) N40.0 Luiz Maguire III, MD [address] [place] [address] [place] [address] 07/21/2024 Luiz Maguire COPD (chronic obstructive pulmonary disease) J44.9 ; Cervical radiculopathy M54.12 ; Former smoker Z87.891 ; BPH (benign prostatic hyperplasia) N40.0 ; Lumbosacral radiculopathy M54.17 ; Mixed hyperlipidemia E78.2 and Depression F32.9 Luiz Maguire III, MD [address] [place] [address] [place] [address] 08/18/2024 Luiz Maguire COPD (chronic obstructive pulmonary disease) J44.9 ; Cervical radiculopathy M54.12 ; GERD (gastroesophageal reflux disease) K21.9 ; Former smoker Z87.891 ; BPH (benign prostatic hyperplasia) N40.0 ; Subacute osteomyelitis of right tibia M86.261 and Bilateral hearing loss, unspecified hearing loss type H91.93 Luiz Maguire III, MD [address] [place] [address] [place] [address] 10/18/2024 Luiz Maguire COPD (chronic obstructive pulmonary [...] symptoms present N40.0 and Former smoker Z87.891 Luiz Maguire III, MD [address] [place] [address] [place] [address] 11/29/2024 Luiz Maguire COPD (chronic obstructive pulmonary disease) J44.9 ; Acute pain of left shoulder M25.512 ; Depression F32.9 ; GERD (gastroesophageal reflux disease) K21.9 ; Mixed hyperlipidemia E78.2 ; Lumbosacral radiculopathy M54.17 ; Benign prostatic hyperplasia, unspecified whether lower urinary tract symptoms present N40.0 ; Bilateral hearing loss, unspecified hearing loss type H91.93 and Former smoker Z87.891 Luiz Maguire III, MD [address] [place] [address] [place] [address] 12/06/2024 Luiz Maguire COPD (chronic obstructive pulmonary disease) J44.9 ; Acute pain of left shoulder M25.512 ; Depression F32.9 ; Mixed hyperlipidemia E78.2 ; GERD (gastroesophageal reflux disease) K21.9 ; Lumbosacral radiculopathy M54.17 and Former smoker Z87.891 Luiz Maguire III, MD [address] [place] [address] [place] [address] 03/13/2025 Luiz Maguire COPD (chronic obstructive pulmonary disease) J44.9 ; Wrist pain M25.539 ; Former smoker Z87.891 ; GERD (gastroesophageal reflux disease) K21.9 ; Umbilical hernia K42.9 ; Depression F32.9 ; Lumbosacral radiculopathy M54.17 ; Basal cell carcinoma of face C44.310 and Lipoma of torso D17.1 Luiz Maguire III, MD [address] [place] [address] [place] [address] 06/20/2024 Luiz Maguire III, MD [address] [place] [address] [place] [address] 11/29/2024 Luiz Maguire Assessments Encounter Date Diagnosis (ICD [...] significant at this time but not life-threatening. 10/18/2024 GERD (gastroesophageal reflux disease) (ICD-10 - K21.9) His reflux symptoms are well controlled with medication. He is sleeping through the night usually. No change in his medication was necessary 10/18/2024 COPD (chronic obstructive pulmonary disease) (ICD-10 - J44.9) His breathing is unlabored and unrestricted. He has not smoked in a prolonged time. He is doing very well with respiration. 11/29/2024 COPD (chronic obstructive pulmonary disease) (ICD-10 [...] to orthopedic surgery for evaluation and treatment. 12/06/2024 COPD (chronic obstructive pulmonary disease) (ICD-10 [...] he will resume normali activity 1 week.t. 03/13/2025 COPD (chronic obstructive pulmonary disease) (ICD-10 [...] The physical examination was within normal limits. 06/19/2024 GERD (gastroesophageal reflux disease) (ICD-10 - K21.9) His reflux symptoms are well controlled with medication. He is sleeping through the night usually. No change in his medication was necessary 07/07/2024 GERD (gastroesophageal reflux disease) (ICD-10 - K21.9) His reflux symptoms are well controlled with medication. He is sleeping through the night usually. No change in his medication was necessary 07/21/2024 Former smoker (ICD-1 0 - Z87.891) [...] today. He continued on current therapy. 11/29/2024 Depression (ICD-10 - F32.9) His depression was very minimal today. He continued on current therapy. 12/06/2024 Depression (ICD-10 - F32.9) His depression was very minimal today. He continued on current therapy. 03/13/2025 Former smoker (ICD-1 0 - Z87.891) He seems highly motivated not to smoke. His COPD has improved. He has a strategy to prevent relapse in times of stress and illness. 06/19/2024 Umbilical hernia (ICD-10 - K42.9) This was repaired in the past and is asymptomatic at the current time. 07/07/2024 Depression (ICD-10 - F32.9) His depression was very minimal today. He continued on current therapy. 07/21/2024 BPH (benign prostati c hyperplasia) (ICD-10 - N40.0) He rises from sleep once a night to urinate. We have discussed lifestyle modification as a way to reduce nocturia. 08/18/2024 Former smoker (ICD-1 0 - Z87.891) He seems highly motivated not to smoke. His COPD has improved. He has a strategy to prevent relapse in times of stress and illness. 10/18/2024 Anxiety disorder due to multiple medical problems (ICD-10 - F06.8) His anxiety is stable at this time and he is coping with it. 11/29/2024 GERD (gastroesophageal reflux disease) (ICD-10 - K21.9) His reflux symptoms are well controlled with medication. He is sleeping through the night usually. No change in his medication was necessary 12/06/2024 Mixed hyperlipidemia (ICD-10 - E78.2) His lipid values have been in the normal range.. We discussed diet and nutrition and the elements of a low animal fat diet today. Comprehensive blood work with a fasting lipid profile has been orderedHis HDL is 88, LDL 129 and total cholesterol 238. We discussed cholesterol reduction strategy at length. 03/13/2025 GERD (gastroesophageal reflux disease) (ICD-10 - K21.9) His reflux symptoms are well controlled with medication. He is sleeping through the night usually. No change in his medication was necessary 06/19/2024 Depression (ICD-10 - F32.9) His depression was very minimal today. He continued on current therapy. 07/07/2024 Former smoker (ICD-1 0 - Z87.891) He seems highly motivated not to smoke. His COPD has improved. He has a strategy to prevent relapse in times of stress and illness. 07/21/2024 Lumbosacral radiculopathy (ICD-10 - M54.17) Low back pain is now minimal. He is avoiding heavy lifting and undue exertion. 08/18/2024 BPH (benign prostati c hyperplasia) (ICD-10 - N40.0) He rises from sleep once a night to urinate. We have discussed lifestyle modification as a way to reduce nocturia. 10/18/2024 Umbilical hernia (ICD-10 - K42.9) This was repaired in the past and is asymptomatic at the current time. 11/29/2024 Mixed hyperlipidemia (ICD-10 - E78.2) His [...] and is asymptomatic at the current time. 06/19/2024 Anxiety disorder due to multiple medical [...] wound care clinic has been involved. 10/18/2024 Subacute osteomyelitis of right tibia (ICD-10 - M86.261) The drainage is minimal. He will continue with current therapy and will be observed. The wound care clinic has been involved. 11/29/2024 Lumbosacral radiculopathy (ICD-10 - M54.17) Low back pain is now minimal. He is avoiding heavy lifting and undue exertion. 12/06/2024 Lumbosacral radiculopathy (ICD-10 - M54.17) Low back pain is now minimal. He is avoiding heavy lifting and undue exertion. 03/13/2025 Depression (ICD-10 - F32.9) His depression was very minimal today. He continued on current therapy. 07/07/2024 BPH (benign prostati c hyperplasia) (ICD-10 - N40.0) He rises from sleep once a night to urinate. We have discussed lifestyle modification as a way to reduce nocturia. 07/21/2024 Depression (ICD-10 - F32.9) His depression was very minimal today. He continued on current therapy. 08/18/2024 Bilateral hearing loss, unspecified hearing loss type (ICD-10 - H91.93) He reports no change in his hearing. 10/18/2024 Basal cell carcinoma of face (ICD-10 - C44.310) This is being treated. 11/29/2024 Benign prostatic hyperplasia, unspecified whether lower urinary tract symptoms present (ICD-10 - N40.0) He rises at most once a night to urinate depending upon fluid intake. We have discussed lifestyle modification as a way to reduce nocturia. 12/06/2024 Former smoker (ICD-1 0 - Z87.891) He seems highly motivated not to smoke. His COPD has improved. He has a strategy to prevent relapse in times of stress and illness. 03/13/2025 Lumbosacral radiculopathy (ICD-10 - M54.17) Low back pain is now minimal. He is avoiding heavy lifting and undue exertion. 10/18/2024 Bilateral hearing loss, unspecified hearing loss type (ICD-10 - H91.93) He reports no change in his hearing. 11/29/2024 Bilateral hearing loss, unspecified hearing loss type (ICD-10 - H91.93) He reports no change in his hearing. 03/13/2025 Basal cell carcinoma of face (ICD-10 - C44.310) This is being treated. 10/18/2024 Benign prostatic hyperplasia, unspecified whether lower urinary tract symptoms present (ICD-10 - N40.0) He rises at most once a night to urinate depending upon fluid intake. We have discussed lifestyle modification as a way to reduce nocturia. 11/29/2024 Former smoker (ICD-1 0 - Z87.891) He seems highly motivated not to smoke. His COPD has improved. He has a strategy to prevent relapse in times of stress and illness. 03/13/2025 Lipoma of torso (ICD-10 - D17.1) The mass under the skin below his left breast is been resected and was a lipoma. The wound has healed well. No further treatment is needed. 10/18/2024 Former smoker (ICD-1 0 - Z87.891) He seems highly motivated not to smoke. His COPD has improved. He has a strategy to prevent relapse in times of stress and illness. Plan Of Treatment Pending Test Test Name [...] C) 05/17/2023 PROFILE, FASTING (COMPREHENSIVE METABOLI C) 03/13/2025 PROFILE, FASTING (COMPREHENSIVE METABOLI C) 06/03/2021 LIPID PANEL 04/18/2020 LIPID PANEL 05/26/2022 LIPID PANEL 01/31/2020 LIPID PANEL 01/01/2023 LIPID PANEL 10/09/2019 LIPID PANEL 10/07/2020 LIPID PANEL 08/25/2023 LIPID PANEL 09/17/2021 LIPID PANEL 08/24/2022 LDH 06/19/2024 PSA, TOTAL 08/24/2022 PSA, TOTAL 03/13/2025 PSA, TOTAL 06/03/2021 PSA, TOTAL 2021 PSA, TOTAL 03/08/2024 PSA, TOTAL 10/09/2019 PSA, TOTAL 10/07/2020 PSA, TOTAL 08/25/2023 CBC w DIFF 10/07/2020 CBC w DIFF 08/25/2023 CBC w DIFF 08/24/2022 CBC w DIFF 04/18/2020 CBC w DIFF 03/13/2025 CBC w DIFF 06/03/2021 CBC w DIFF 05/26/2022 CBC w DIFF 01/31/2020 CBC w DIFF 2021 CBC w DIFF 01/01/2023 CBC w DIFF 09/17/2021 CBC w DIFF 10/09/2019 SED RATE (ESR) 06/19/2024 D-DIMER 06/19/2024 MRI CERVICAL SPINE NO CONTRAST MRI CERVICAL SPINE NO CONTRAST 0 XR SHOULDER LT 2 VIEWS 11/29/2024 XR WRIST LT 03/13/2025 XR WRIST RT 03/13/2025 US ABD 07/07/2019 CBC WITH AUTO DIFF 05/17/2023 CBC WITH AUTO DIFF 03/08/2024 Lipid Panel 05/17/2023 Lipid Panel 03/13/2025 Lipid Panel 2021 Lipid Panel 03/08/2024 Next Appt Details Provider Name:Luiz Maguire , 09/11/2025 02:00:00 PM, [address] [facility] [address], [place], [address], Provider Name:Luiz Maguire , 03/15/2026 02:00:00 PM, [address] [place] [address] [address], [place], [address], Insurance Providers Payer Name Payer Address Payer Phone Subscriber Number Group Number Insured Name Patient Relationship to Insured Coverage Start Date Coverage End Date MEDICARE NGS [address] [place] [address] [id number] Aakash Holt Self - patient is the insured MED[place] [address] TIKA MCKAY [id number] [phone] [id number] Aakash Holt Self - patient is the [...] femur, skin deepa t from right thigh 1980 umbilical herniorrhaphy 2011 Hospitalization History Reason Date(Month/Year) No history
--- OUTSIDE RECORDS SUMMARY | 2025-04-10 08:36 | XMS_ITS | Clinical Summary ---
Author Organization [address] [facility] Address [address] [place] [address] Phone Care Team Providers Care Hot Room Attendant Name Role Phone Luiz Maguire MD Primary Care Provider [phone] Allergies Active Allergy Reactions Criticality Noted Date [...] Health Maintenance Due Date Last Done Comments Colorectal Cancer Screening: Colonoscopy 1961 DTaP,Tdap,and Td Vaccines (1 - Tdap) 02/25/1980 Hepatitis A Vaccines (1 of 2 - Risk 2-dose series) 02/25/1980 Pneumococcal Vaccine: 50+ Years (1 of 2 - PCV) 02/25/1980 RSV Immunization Adult Patients (1 - Risk 50-74 years 1-dose series) 2011 Zoster Vaccines (1 of 2) 2011 Cholesterol Screening (Lipid Panel) 01/28/2024 HIV Screening 01/28/2024 Hepatitis C Screening 01/28/2024 Medicare Annual Wellness Visit 01/28/2024 Social Influencers of Health Screening 01/28/2024 Depression Screening 04/26/2024 COVID-19 Vaccine ( season) 2024 03/16/2022, 04/03/2021, 09/16/2020, Additional history exists Influenza Vaccine (#1) 2024 3, 03/16/2022, 03/03/2021, Additional history exists HIB Vaccines [...] age to complete [place] [id number] Care Teams Hot Room Attendant Relationship Specialty Start Date End Date Luiz Maguire MD PCP - General Oncology 02/13/19
[2025-04-10 08:59] LABS: Hematocrit 37.5 % (42.0-52.0); Hemoglobin 12.4 g/dl (14.0-18.0); Imm Gran Abs Auto 0.01 X10*3/uL (0.00-0.03); Imm Gran Pct Auto 0.1 % (0.0-0.4); Lymphocytes Absolute Auto 2.3 X10*3/uL (1.2-4.9); Mean Corpuscular HGB Conc 33.1 g/dl (31.0-36.0); Mean Corpuscular Hemoglobin 28.7 pg (27.0-33.0); Mean Corpuscular Volume 86.8 fL (80.0-98.0); NRBC Abs Auto 0.000 X10*3/uL (0.0-0.012); NRBC Pct Auto 0.0 /100WBC (0.0-0.2); Platelet Count 333 X10*3/uL (160-400); Red Blood Count 4.32 X10*6/uL (4.60-5.80); White Blood Count 6.8 X10*3/uL (4.8-10.8)
[2025-04-10 09:24] LABS: Alanine Aminotransferase 19 U/L (0-40); Albumin Level 5.0 g/dL (3.5-5.0); Alkaline Phosphatase 57 U/L (39-117); Anion Gap 10 (12-20); Aspartate Amino Transferase 25 U/L (5-37); Blood Urea Nitrogen 14 mg/dL (9-16); Calcium 10.1 mg/dL (8.4-10.2); Carbon Dioxide 28 mmol/L (22-29); Chloride 109 mmol/L (96-108); Cholesterol 214 mg/dL (<200); Estimated Glomerular Filt Rate > 60; HDL Cholesterol 54 mg/dL (>40); Potassium 4.9 mmol/L (3.3-5.1); Sodium 142 mmol/L (135-145); Total Protein 7.3 g/dL (6.5-8.0); Triglycerides 148 mg/dL (<150)
[2025-04-10 09:43] LABS: Prostate Specific Antigen 1.70 ng/mL (<0.05-4.0)
== END 2025-04-10 08:19 | disposition home or self-care (01) ==
LOC: HO.XRAY 08:18
PROVIDERS: PCP Internal Medicine Medical Oncology; Visit Provider Internal Medicine Medical Oncology
DX: Z00.00 Encounter for general adult medical examination without abnormal findings (principal); Z12.5 Encounter for screening for malignant neoplasm of prostate; N40.0 Benign prostatic hyperplasia without lower urinary tract symptoms; N52.9 Male erectile dysfunction, unspecified; E78.2 Mixed hyperlipidemia; M25.531 Pain in right wrist; M25.532 Pain in left wrist
CPT/HCPCS: 36415; 73110; 80053; 80061; 84153; 85025

== ENCOUNTER → 2025-04-10 08:29 | Outpatient (BNV) | payer MEDICARE, MEDICAID, SELFPAY | PROVIDERS: PCP Internal Medicine Medical Oncology; Visit Provider Radiology Diagnostic Radiology | DX: M18.0 Bilateral primary osteoarthritis of first carpometacarpal joints (principal) | CPT/HCPCS: 73110 ==